=== PATIENT | female | born 1925 | race Caucasian/White ===

== ENCOUNTER 2016-06-27 14:40 | Inpatient (IN) | payer MEDICARE, MEDICAID ==
[~2016-06-27] VITALS: Ht 170.2 cm; Wt 75.1 kg
[2016-06-27] VITALS (9 sets, daily range): BP systolic 101–116; BP diastolic 37–91; PULSE 68–83; RESP 19–34; O2SAT 82–100
[~2016-06-27 14:40] MED LIST: ALLO100T PO; ASA325 PO; BISA5TAB12 PO; CLAR10T PO; DILT120T10 PO; DSS250 PO; FLONASE NOSTRIL; FUR80 PO; IPRA3AMP HHN; K20 PO; LEVO125T6 PO; OMEP20TA86 PO; PRE20 PO; SPIR25TA17 PO; SULF1TAB7 PO; VICODIN 5-3251 EACH PO; VIT1CAPS23 PO; ZOC10 PO; [UNRECOGNIZED DRUG - CODE] PO; [UNRECOGNIZED DRUG - CODE] PO
--- NOTE | 2016-06-27 15:21 | ED.REPORT ---
HPI-General Illness Date of Service Jun 27, 2016 ED Provider: Dawson Haines MD 89 year old female with a history of COPD, Hypothyroidism, and an increased O2 at [facility] due to saturation 79% RA baseline requiring 5L, new after recent flu A diagnosis, who presents to the ED via EMS from [facility] due to AMS and increased weakness. Reportedly the patient was able to speak at baseline 2 days ago. Today she is non-verbal, with no family in room for additional history. Nursing Notes Stated Complaint: ALTERED LOC Chief Complaint: FLU/Cold Symptoms Nursing Notes Reviewed: Yes Allergies: Coded Allergies: indomethacin (Verified Allergy, Unknown, 06/27/16) milk (Verified Allergy, Unknown, 06/27/16) Scheduled Acetaminophen (Acetaminophen) 325 Mg Capsule 650 MG PO TID Allopurinol (Allopurinol) 100 Mg Tablet 100 MG PO DAILY Alpha Lipoic Acid (Alpha Lipoic Acid) 300 Mg Capsule 600 MG PO DAILY Calcium Carbonate (Tums) 500 Mg Tab.chew 500 MG PO DAILY Cetirizine HCl (Zyrtec) 10 Mg Capsule 10 MG PO DAILY Cholecalciferol (Vitamin D3) (Vitamin D3) 2,000 Unit Tablet 2,000 UNIT PO DAILY Cranberry Fruit Concentrate (Cranberry) 450 Mg Capsule 900 MG PO DAILY Diltiazem ER (Cardizem CD) 120 Mg Cap.er.24h 120 MG PO DAILY Docusate Sodium (Docusate Sodium) 250 Mg Capsule 250 MG PO DAILY Fluticasone Propionate (Flonase Allergy Relief) 50 Mcg/Actuation [place].susp 1 SPRAY NS QPM Levothyroxine (Levothyroxine) 100 Mcg Tablet 100 MCG PO DAILY Multivitamin (Once Daily) 1 Each Tablet 1 EACH PO DAILY Oseltamivir Phosphate (Tamiflu) 75 Mg Capsule 75 MG PO BID x 8 doses Prednisone (PredniSONE) 5 Mg Tab 5 MG PO DAILY Sennosides (Senna) 8.6 Mg Tablet 17.2 MG PO DAILY Simvastatin (Simvastatin) 10 Mg Tablet 10 MG PO HS Scheduled PRN Acetaminophen (Acetaminophen) 325 Mg Capsule 650 MG PO q4 hours PRN PRN For Pain Bisacodyl (Dulcolax) 5 Mg Tablet.dr 5 MG PO BID PRN PRN For Constipation Guaifenesin/Codeine Phosphate (Guaifen-Codeine 100-10 mg/5 ml) 120 Ml Liquid 10 ML PO q6 hours PRN PRN For Cough Ipratropium/Albuterol Sulfate (Iprat-Albut 0.5-3(2.5) mg/3 mL Inhalant Soln) 3 Ml Ampul.neb 3 ML IH Q6 PRN PRN For Shortness of Breath General Time Seen by MD: 15:13 Chief Complaint Other (Decreased LOC) Hx Obtained From: Patient, EMS Unable to Obtain Hx: Mental status Arrived By: Ambulance Past Medical History Past Medical History Bladder dysfunction COPD Hypothyroidism Neuropathy weaknesss Had increased O2 at [facility] due to saturation 79% RA baseline requiring 5L, new after recent flu diagnosis. Reports: COPD Past Surgical History Sinus surgery Joints- unspecified. Smoking History Unknown if Ever Smoker Social History Other Social History: Lives in [facility] Review of Systems Unable to Obtain ROS Mental status Full Review of Systems Constitutional: Reports: Weakness - generalized Neurologic: Reports: Change LOC Physical Exam Vital Signs Vital Signs Date Time Temp Pulse Resp B/P Pulse Ox O2 Delivery O2 Flow Rate FiO2 06/27/16 15:59 35.9 82 34 108/46 95 Nasal Cannula 4 06/27/16 14:50 36.7 80 27 109/54 99 Nasal Cannula 5 Initial VS: Reviewed Head / Eyes: Atraumatic, Normocephalic ENT: Conjunctiva normal, No scleral icterus Extremities: Vascular intact, Neuro intact, No swelling, No tenderness Skin: Warm, Dry Respiratory/Chest: Coarse shallow breath sounds Moderately tachypneic Cardiovascular: Heart rate NL, Regular rhythm, Heart sounds NL, No gallop, No murmurs, No rubs, Cap refill not delayed, Peripheral circulation NL Abdomen: Soft, Non-tender, No distention Lower Extremity / Pelvis / MS: Neurologic intact, Vascular intact Amputated R third toe, good perfusion to toes. Sacral pressure ulcer shallow, approximately 1cm. Palm sized patch of erythema about the sacral region. Neurologic: No motor deficits Pt non-verbal. Interpretation & Diagnostics Lab Results Interpretation Result Diagram: 06/27/16 1520 06/27/16 1520 Test 06/27/16 15:20 06/27/16 15:51 White Blood Count 16.0th/mm3 (3.8-10.1) Red Blood Count 3.70mil/mm3 (3.90-5.20) Hemoglobin 12.6g/dL (12.0-15.6) Hematocrit 40.3% (35.0-46.0) Mean Corpuscular Volume 108.9fL (81-100) Mean Corpuscular Hemoglobin 34.1pg (27.0-35.0) Mean Corpuscular Hemoglobin Concent 31.3% (32.0-37.0) Red Cell Distribution Width 14.0% (12.3-15.4) Platelet Count 217bil/L (150-400) Neutrophils (%) (Auto) 68.0% (40-74) Lymphocytes (%) (Auto) 17.0% (14-46) Monocytes (%) (Auto) 13.9% (4-12) Eosinophils (%) (Auto) 0.1% (0-5) Basophils (%) (Auto) 0.4% (0-3) Sodium Level 144mEq/L (134-144) Potassium Level 4.2mEq/L (3.5-5.2) Chloride Level 102mEq/L (97-108) Carbon Dioxide Level 33mmol/L (18-29) Blood Urea Nitrogen 32mg/dL (8-27) Creatinine 0.76mg/dL (0.57-1.00) Estimat Glomerular Filtration Rate 103mL/min (>59) Glucose Level 141mg/dL (60-99) Lactic Acid Level 0.7mmol/L (0.4-2.0) Calcium Level 8.7mg/dL (8.5-10.1) Magnesium Level 1.8mg/dL (1.6-2.6) Total Bilirubin 0.2mg/dL (0.0-1.2) Aspartate Amino Transf (AST/SGOT) 23U/L (0-50) Alanine Aminotransferase (ALT/SGPT) 8U/L (0-32) Alkaline Phosphatase 55U/L (25-165) Troponin T 0.026ug/L (0.0-0.011) Total Protein 7.3g/dL (6.4-8.4) Albumin 3.7g/dL (3.4-5.0) Urine Color Yellow (YELLOW) Urine Appearance Slightly cloudy Urine pH 8.0 (5.0-8.0) Urine Specific [place] 1.025 (1.003-1.035) Urine Protein 100mg/dL (NEG,TRACE) Urine Glucose (UA) Negativemg/dL (NEGATIVE) Urine Ketones Negativemg/dL (NEGATIVE) Urine Occult Blood Moderate (NEGATIVE) Urine Nitrite Negative (NEGATIVE) Urine Bilirubin Negative (NEGATIVE) Urine Urobilinogen Normalmg/dL (NORMAL) Urine Leukocyte Esterase Large (NEGATIVE) Urine RBC 3-10/hpf (0-2) Urine WBC 11-50/hpf (0-5) Urine Epithelial Cells None/hpf (NONE-MOD) Urine Crystals None seen (NONE SEEN) Urine Bacteria Few/hpf (NONE-FEW) Urine Hyaline Casts None/lpf (NONE) Urine Granular Casts None seen (NONE SEEN) Urine Waxy Casts None seen (NONE SEEN) Urine Red Blood Cell Casts None seen (NONE SEEN) Urine White Blood Cell Casts None seen (NONE SEEN) Urine Mucus Present (None Seen) Urine Trichomonas None seen (NONE SEEN) Urine Yeast None (NONE SEEN) Urinalysis Comment None Urine Culture Reflexed Indicated General Lab Results Interp 1: Labs reviewed X-Ray Chest Interpretation Chest Xray Interpretation: IMPRESSION: Bibasilar opacities compatible with atelectasis versus pneumonia. Please correlate with clinical and laboratory data. Dictated by: Cynthia Han MD, PhD on 06/27/2016 at 16:44 View: Portable, 1 view Interpretation / Wet Read by: Interpret - Radiologist Re-Eval/Medical Decision Med Decision/Clinical Course 89 year old female with a history of COPD, Hypothyroidism, and an increased O2 at [facility] due to saturation 79% RA baseline requiring 5L, new after recent flu A diagnosis, who presents to the ED via EMS from [facility] due to AMS and increased weakness. Reportedly the patient was able to speak at baseline 2 days ago. Today she is non-verbal, with no family in room for additional history. Upon arrival the patient is hypotensive with a blood pressure in the 70s over the 40s, she is to Neck with a respiratory rate of 33. She generally unwell. She is unable to provide any history. She has a POLST form that specifies DNR/ DNI with limited additional interventions. There is a handwritten note on the forearm that the patient may be considered by her primary care physician or other "trusted physician". It is unclear what is meant by "trusted physician". Given the patient's profound respiratory distress and POLST form stating DO NOT INTUBATE opted to initiate BiPAP. This was tolerated well. Left for studies were notable as below: leukocytosis 16 hct 40.3 BUN 32 creatinine 0.76 lactate 0.7 troponin 0.026 no significant electrolyte abnormalities Cath UA large leuk esterase, bacteria present, urine sent for culture Arterial ABG: PH 7.062 CO2 114 Bicarb 30 Minimally compensation respiratory acidosis The patient was aggressively fluid resuscitated. Given her respiratory acidosis she was placed on BiPAP. The patient's blood pressure improved with a 30 mL/kg fluid bolus and she maintained a map greater than 65. At this time she has 2 potential infectious sources both her urine as well as likely bilateral pneumonia. Given her hypoxia and tachypnea I opted to treat for hospital-acquired pneumonia with IV vancomycin and Zosyn. Note the patient had an elevated troponin however fact that this may be related to demand ischemia in the setting of her severe illness/sepsis. Regardless, at this time I do not feel that she is a immediate candidate for cardiac catheterization given her instability and more pressing issues. He will require her troponin to be trended. At this time EKG does not demonstrate STEMI. The patient was discussed with the medical hospitalist and transferred to the intensive care unit for further management. I made attempts to contact the patient's physician as well as family regarding further insight into situations in which she would want to be intubated. I have not at this time been able to make contact. Time of Eval: 17:00 Re-Evaluation/Progress Note: Pt being admitted. Resting in bed. Consultation : Referral / Consult Name: Patrick Inman MD Consulted With: Hospitalist Call Returned at: 17:17 Cargo And Container Inspector: Will see patient, Agrees with eval, Agrees with plan, Accepts admit Counseled Regarding: Diagnosis, Lab results, Need for admission Discharge & Departure Primary Impression: Sepsis Sepsis type: sepsis due to unspecified organism Qualified Code: A41.9 - Sepsis, unspecified organism Additional Impressions: Altered mental status Altered mental status type: unspecified Qualified Code: R41.82 - Altered mental status, unspecified Hypotension Hypotension type: unspecified hypotension type Qualified Code: I95.9 - Hypotension, unspecified UTI (urinary tract infection) Urinary tract infection type: site unspecified Hematuria presence: without hematuria Qualified Code: N39.0 - Urinary tract infection, site not specified Pneumonia Pneumonia type: due to unspecified organism Laterality: bilateral Lung location: unspecified part of lung Qualified Code: J18.9 - Pneumonia, unspecified organism Tachypnea Respiratory acidosis Acute respiratory failure Respiratory failure complication: hypoxia Qualified Code: J96.01 - Acute respiratory failure with hypoxia Leukocytosis Leukocytosis type: unspecified Qualified Code: D72.829 - Elevated white blood cell count, unspecified Dehydration Elevated troponin Disposition: ADMITTED TO HOSPITAL Discharge Condition All VS Reviewed: Yes Referrals: Latisha Xavier (PCP) Crit Care Except Billable Proc Time Spent: 105-134 minutes Services Performed: Patient management by me, Time spent at bedside, Reviewing test results, Reviewing imaging, Discussing patient care, Documentation in record, Time with fam/surrogate Scribe Attestation Portions of this note were transcribed by Danae Montalvo. I, (Dr. Haines) personally performed the history, physical exam and medical decision-making; I reviewed and confirmed the accuracy of the information in the transcribed note. Signed by: Danae Montalvo. 06/27/2016, 5291 copies to: Latisha Xavier Beck O MD Jun 27, 2016 15:21 Danae Montalvo Jun 27, 2016 16:00
[2016-06-27 15:33] LABS: BASOPHILS % (AUTO) 0.4 % (0-3); EOSINOPHILS % (AUTO) 0.1 % (0-5); MONOCYTES % (AUTO) 13.9 % (4-12); Mean Corpuscular Hemoglobin 34.1 pg (27.0-35.0); Mean Corpuscular Volume 108.9 fL (81-100); Platelet Count 217 bil/L (150-400)
[2016-06-27 15:56] LABS: TROPONIN T 0.026 ug/L (0.0-0.011)
[2016-06-27 16:07] LABS: Magnesium 1.8 mg/dL (1.6-2.6)
[2016-06-27] MEDS: 0.9% Sodium Chloride 1,000 ML IV SCH ×2 (16:13→16:58)
[2016-06-27 16:44] LABS: APPEARANCE,URINE SLIGHTLY CLOUDY (CLEAR,HAZY); COLOR,URINE YELLOW (YELLOW)
[2016-06-27 16:45] LABS: OCCULT BLOOD,URINE MODERATE (NEGATIVE); UROBILINOGEN,URINE NORMAL (NORMAL)
--- NOTE | 2016-06-27 16:46 | DRSVH ---
PROCEDURE: X-RAY CHEST ONE VIEW, PORTABLE ([id number]) INDICATIONS: DECREASED LOC TECHNIQUE: One view of the chest was acquired. COMPARISON: [facility], , CHEST 1VW (PORTABLE), 07/05/2013, 9:15. FINDINGS: Surgical changes and devices: None. Lungs and pleura: Trace bilateral pleural fluid collections. Increased opacification of the lung base s bilaterally compatible with atelectasis versus pneumonia. Mediastinum: Mediastinal contours appear normal. Heart size is normal. Bones and chest wall: No suspicious bony lesions. Overlying soft tissues appear unremarkable. IMPRESSION: Bibasilar opacities compatible with atelectasis versus pneumonia. Please correlate with c linical and laboratory data. Dictated by: Cynthia Han MD, PhD on 06/27/2016 at 16:44 Approved by: Cynthia Han MD, PhD on 06/27/2016 at 16:44
[2016-06-27] MEDS ORDERED: Vancomycin Dose per Pharmacist XX ONE (17:00)
[2016-06-27] MEDS ORDERED: Piperacillin-Tazo 3.375 Gm Inj 3.375 GM in Dextrose 5% Minibag Plus 50 ML IV ONE (17:00)
--- NOTE | 2016-06-27 17:14 | ABG ---
DateTimeAnalyzed 17:10:00 -_ pH ____7.062 - 7.350 7.450 pCO2 114 -mmHg 35.0 45.0 pO2 126 -mmHg 69.0 116 HCO3- ___30.9__ -mmol/L 22.0 26.0 ABE ___-2.1__ -mmol/L -2.0 2.0 tHb ___11.0__ -g/dL O2Hb ___96.0__ -% COHb ____0.6__ -% MetHb ____0.9__ -% sO2 ___97.5__ -% FIO2 ___30.0__ -% Drawn By MT - Date/Time Notified____ 17:14:00 -_ Notified By MT - Notified Whom [place] - B 756 -mmHg tO2 ___15.0__ -Vol% Donnie test _Positive -
--- NOTE | 2016-06-27 18:00 | NUR ---
Transfer Pt arrived in CCU room #2013 at 1732 from ED. Pt opens eyes but does not follow command. Full assist. ABG's completed. Bipap placed by RT. Several skin tears and bruise. Open sores on coccyx. Placed on pressure ulcer protocol. Placed a mepilex on coccyx. Mitchell draining minimal urine. x2 peripheral IV's. 2L NS completed and LR started at 100ml/hr. Tele SR 80 and LK=354/39
[2016-06-27] MEDS: Lactated Ringer's 1,000 ML IV SCH (18:39)
[2016-06-27] MEDS ORDERED: DILT120C83 PO (18:47)
[2016-06-27] MEDS ORDERED: CALC500T9 PO (18:47)
[2016-06-27] MEDS ORDERED: PRD5T PO (18:47)
[2016-06-27] MEDS ORDERED: THIO300C PO (18:47)
[2016-06-27] MEDS ORDERED: GUAI120L30 PO (18:47)
[2016-06-27] MEDS ORDERED: TAM75UDCAP PO (18:47)
[2016-06-27] MEDS ORDERED: CETI10CA PO (18:47)
[2016-06-27] MEDS ORDERED: SIMV10TA4 PO (18:47)
[2016-06-27] MEDS ORDERED: CHOL200025 PO (18:47)
[2016-06-27] MEDS ORDERED: CRAN450C PO (18:47)
[2016-06-27] MEDS ORDERED: SENN-133 PO (18:47)
[2016-06-27] MEDS ORDERED: DOCU250C2 PO (18:47)
[2016-06-27] MEDS ORDERED: FLUT9.9S NS (18:47)
[2016-06-27] MEDS ORDERED: ZYL100 PO (18:47)
[2016-06-27] MEDS ORDERED: MULT-666 PO (18:47)
[2016-06-27] MEDS ORDERED: ACET325C PO ×2 (18:47)
[2016-06-27] MEDS ORDERED: LEVO100T6 PO (18:47)
[2016-06-27] MEDS ORDERED: BISA-67 PO (18:48)
[2016-06-27] MEDS ORDERED: IPRA3AMP IH (18:48)
--- NOTE | 2016-06-27 19:54 | ABG ---
DateTimeAnalyzed 19:49:00 -_ pH ____7.202 - 7.350 7.450 pCO2 ___75.8__ -mmHg 35.0 45.0 pO2 106 -mmHg 69.0 116 HCO3- ___28.7__ -mmol/L 22.0 26.0 ABE ___-0.5__ -mmol/L -2.0 2.0 tHb ___11.2__ -g/dL O2Hb ___96.0__ -% COHb ____0.7__ -% MetHb ____0.9__ -% sO2 ___97.6__ -% FIO2 ___70.0__ -% CPAP ___16.0__ -cmH2O PEEP ____5.0__ -cmH2O Set_RR ___18.0__ -b/min Drawn By MM - Date/Time Notified____ 19:54:00 -_ Oxygen Device 1 ____BIPAP - Notified By MM - Notified Whom ___DR Henny - B 756 -mmHg tO2 ___15.2__ -Vol% Donnie test N/A -
--- NOTE | 2016-06-27 20:08 | PCM.HPMED ---
Subjective Date of Service Jun 27, 2016 Primary Provider: Admitting Physician: Patrick Inman MD Primary Care Physician: Latisha Xavier Attending Physician: Patrick Inman MD Chief Complaint: Hypoxia at [place] HISTORY was OBTAINED FROM PATIENT / MEDITECH NOTES History of present illness 89-year-old female, dysphagia/COPD history, diagnosed with influenza last week associated w/ 79% on RA, tolerating Tamiflu, progressive altered mental status x 2 days, poorly responsive to staff, w/ ongoing O2 need. In the ER BP 70/40, respiratory rate 25, 5L O2 . UA positive for leukocyte esterase but negative for bacteria/negative yeast. Vancomycin and Zosyn started. BiPAP started. Review of Systems FAMILY HX social - unable to answer w/ fatigue/BIPAP on. medications Acetaminophen (Acetaminophen) 325 Mg Capsule 650 MG PO TID Allopurinol (Allopurinol) 100 Mg Tablet 100 MG PO DAILY Alpha Lipoic Acid (Alpha Lipoic Acid) 300 Mg Capsule 600 MG PO DAILY Calcium Carbonate (Tums) 500 Mg Tab.chew 500 MG PO DAILY Cetirizine HCl (Zyrtec) 10 Mg Capsule 10 MG PO DAILY Cholecalciferol (Vitamin D3) (Vitamin D3) 2,000 Unit Tablet 2,000 UNIT PO DAILY Cranberry Fruit Concentrate (Cranberry) 450 Mg Capsule 900 MG PO DAILY Diltiazem ER (Cardizem CD) 120 Mg Cap.er.24h 120 MG PO DAILY Docusate Sodium (Docusate Sodium) 250 Mg Capsule 250 MG PO DAILY Fluticasone Propionate (Flonase Allergy Relief) 50 Mcg/Actuation [place].susp 1 SPRAY NS QPM Levothyroxine (Levothyroxine) 100 Mcg Tablet 100 MCG PO DAILY Multivitamin (Once Daily) 1 Each Tablet 1 EACH PO DAILY Oseltamivir Phosphate (Tamiflu) 75 Mg Capsule 75 MG PO BID x 8 doses Prednisone (PredniSONE) 5 Mg Tab 5 MG PO DAILY Sennosides (Senna) 8.6 Mg Tablet 17.2 MG PO DAILY Simvastatin (Simvastatin) 10 Mg Tablet 10 MG PO HS Scheduled PRN Acetaminophen (Acetaminophen) 325 Mg Capsule 650 MG PO q4 hours PRN PRN For Pain Bisacodyl (Dulcolax) 5 Mg Tablet.dr 5 MG PO BID PRN PRN For Constipation Guaifenesin/Codeine Phosphate (Guaifen-Codeine 100-10 mg/5 ml) 120 Ml Liquid 10 ML PO q6 hours PRN PRN For Cough Ipratropium/Albuterol Sulfate (Iprat-Albut 0.5-3(2.5) mg/3 mL Inhalant Soln) 3 Ml Ampul.neb 3 ML IH Q6 PRN PRN For Shortness of Breath Past Medical History urinary incontinence tachycardia COPD Hypothyroidism Neuropathy weaknesss Past Surgical History Sinus surgery Joints- unspecified. Allergies Coded Allergies: indomethacin (Verified Allergy, Unknown, 06/27/16) milk (Verified Allergy, Unknown, 06/27/16) PMH Social History Hx Alcohol Use: No Hx Substance Use: No Hx Tobacco Use: No Smoking Status: Unknown if Ever Smoker Exam Vital Signs Vital Sign - Last Date Time Temp Pulse Resp B/P Pulse Ox O2 Delivery O2 Flow Rate FiO2 06/27/16 19:41 90 19 113/91 98 70 06/27/16 17:46 35.6 Nasal Cannula 4.00 Lab and Diagnostics Labs Exam on admission 16/, PIP 17 NAD EASILY AWAKENS, FOLLOWS COMMANDS, ONE-WORD ANSWERS WHILE ON THE BIPAP NC/AT no icterus no injected eyes EOMI PERRL /no pharyngeal lesions/ no oral lesions / hearing intact Supple neck Bilateral coarse breath sounds equal chest rise / no accessory muscle use / speaks in full sentences / no rrw RRR S1 S2 / no mrg / 2+ radial pulses Soft nt nd + BS no hepatosplenomegaly No edema no cyanosis no ecchymosis of lower extremities No rash / no jaundice Contractures of every limb, otherwise able to move right fingers more than left fingers Mitchell clear yellow IVF 100cc/hr UA positive for leukocyte esterase, negative yeast negative nitrite negative bacteria Chest x-ray unremarkable Result Diagram: 06/27/16 1520 06/27/16 1520 Assessment & Plan Active issues and reason for admission 89-year-old female with altered mental status progressive with hypotension, due to respiratory distress from influenza/bilateral basilar pneumonia, failing outpatient tamiflu and treating as HCAP recent new hypoxia/influenza/bilateral basilar pneumonia -- Tamiflu/DuoNeb -- monitor/BiPAP Elevated troponin mild -- serial trop concurrent UTI-already treating for HCAP --pending UCx pressure sores --pending wound team elevated blood gluc, likely due to COPD's prednisone --A1c SSI Chronic issues known prior to admission, present on admission contractures Dysphagia COPD Hypothyroidism Neuropathy tachycardia -- Resume statin, prednisone, cetirizine, dilt synthoid Diet advance as tolerated DVT prophylaxis lovenox heparin scd ambulate Code by POLST indicates DO NOT INTUBATE with limited intervention but on comment section indicates intubation would be allowed as long as primary care physician or "trusted physician" determines that it would not be futile Disposition inpatient status Assessment and plan were discussed with patient Patrick Inman MD Jun 27, 2016 20:08 Code by POLST indicates DO NOT INTUBATE with limited intervention but on common section indicates intubation would be allowed as long as primary care or trusted physician determines that it would not be futile Disposition inpatient status Assessment and plan were discussed with patient Patrick Inman MD Jun 27, 2016 20:08
[2016-06-27] MEDS: Albuterol-Ipratropium 3 mL Inhalation Solution NEB SCH (23:38)
[2016-06-28] VITALS (16 sets, daily range): BP systolic 104–133; BP diastolic 40–62; PULSE 74–101; RESP 21–28; O2SAT 93–100
[2016-06-28 01:30] LABS: Mean Corpuscular Hemoglobin 33.6 pg (27.0-35.0); Mean Corpuscular Volume 110.3 fL (81-100)
[2016-06-28 02:19] LABS: TROPONIN T 0.038 ug/L (0.0-0.011)
[2016-06-28] MEDS ORDERED: KCl 40 mEq/500 mL D5W(K 3 - 3.7 & Creat < 2) IV ONE (02:45)
[2016-06-28] MEDS: Lactated Ringer's 1,000 ML IV SCH ×3 (03:32→22:50)
[2016-06-28 03:54] LABS: Bilirubin, Direct 0.2 mg/dL (0.0-0.3); Magnesium 1.5 mg/dL (1.6-2.6); Phosphorus 3.8 mg/dL (2.5-4.9)
[2016-06-28] MEDS ORDERED: Mag Sulf 4 Gm/100 mL IV Premix (Mag < 1.6 & Creat < 2) IV ONE (04:35)
--- NOTE | 2016-06-28 06:28 | NUR ---
care from 0400 -0700, took over pt care at 0400, bipap at .50 fio2, 25/10, hob up, resp rate=high teens to low 20's, ls- scattered course rhonchi, pt coughing up thick yellow sputum, sx per daniel, rt aware of need for sputum spec, strong cough, sats upper 90's, pt alert, answers with one word answers, improved per report from earlier in night, turn q2hrs, scd's on, mepilex dressing on buttocks, wound care order placed, fragile bruised skin to extremities, bora uop per f/c, no bm, no n/v, npo tele- sr, hr 80's, bp low normal, pt asleep at 0600, paged with troponin results, no new orders, mg/k replacements given, repeat labs ordered for 0800, see assessment charting, report today shift rn at 0700, plan:resp support, droplet precautions taken,
[2016-06-28] MEDS: Albuterol-Ipratropium 3 mL Inhalation Solution NEB SCH ×4 (07:36→20:36)
--- NOTE | 2016-06-28 07:55 | ABG ---
DateTimeAnalyzed 07:50:00 -_ pH ____7.287 - 7.350 7.450 pCO2 ___62.1__ -mmHg 35.0 45.0 pO2 119 -mmHg 69.0 116 HCO3- ___28.7__ -mmol/L 22.0 26.0 ABE ____1.6__ -mmol/L -2.0 2.0 tHb ___10.3__ -g/dL O2Hb ___96.5__ -% COHb ____0.8__ -% MetHb ____1.2__ -% sO2 ___98.5__ -% FIO2 ___50.0__ -% Pressure_Support ___16.0__ -cmH2O CPAP ____5.0__ -cmH2O Set_RR ___18.0__ -b/min Drawn By gj - Date/Time Notified____ 07:55:00 -_ Spontaneous_RR ___26.0__ -b/min Oxygen Device 1 ____BIPAP - Notified By gj - Notified Whom [place] - B 749 -mmHg tO2 ___14.2__ -Vol% Donnie test _Positive -
[2016-06-28 08:02] LABS: BASOPHILS % (AUTO) 0.2 % (0-3); EOSINOPHILS % (AUTO) 0.2 % (0-5); MONOCYTES % (AUTO) 13.4 % (4-12); Mean Corpuscular Hemoglobin 34.2 pg (27.0-35.0); Mean Corpuscular Volume 109.9 fL (81-100); NEUTROPHILS % (AUTO) 68.6 % (40-74); Platelet Count 168 bil/L (150-400)
[2016-06-28] MEDS ORDERED: Azithromycin Inj 500 MG in Dextrose 5% w/Vial Mate 250 ML IV ONE (08:15)
[2016-06-28 08:30] LABS: Magnesium 2.8 mg/dL (1.6-2.6)
[2016-06-28] MEDS ORDERED: Vancomycin Dose per Pharmacist XX SCH (08:30)
[2016-06-28] MEDS: Diltiazem CD 120 mg ER24 Capsule PO SCH (08:30)
[2016-06-28] MEDS: predniSONE 5 mg Tablet PO SCH (08:30)
[2016-06-28] MEDS ORDERED: Cefepime Inj 2 GM in IV Premix 1 EACH IV SCH (08:30)
[2016-06-28] MEDS ORDERED: Fluticasone 0.05% 15 Spray/2 Gm 16 Gm Nasal Spray NASAL SCH (08:30)
[2016-06-28 08:56] LABS: Phosphorus 2.5 mg/dL (2.5-4.9)
[2016-06-28 10:54] LABS: APPEARANCE,URINE SLIGHTLY CLOUDY (CLEAR,HAZY); COLOR,URINE YELLOW (YELLOW); OCCULT BLOOD,URINE LARGE (NEGATIVE); PH,URINE 6.5 (5.0-8.0); UROBILINOGEN,URINE NORMAL (NORMAL)
--- NOTE | 2016-06-28 12:21 | PCM.CHPMED ---
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 No documentation of pneumococcal vaccine. UTI Immobility syndrome with significant deconditioning (requires a lift for transfers) Hypothyroidism with laboratory evidence of over treatment Chronic kidney disease with good renal function currently Sofía is an 89-year-old female resident of a local [place] [facility] facility ( [facility]) with past medical history of recently diagnosed influenza A (by PCR last week, on Tamiflu), documented COPD, and neuromuscular disease with associated neuropathy and myopathy who presented to the ER via [place] from the [place] [facility] with reported complaint of altered mentation ( specifically decreased interactiveness with staff), and increasing O2 needs (79 % on room air, 96% on 5 L by nasal cannula at facility). According to documentation from the nursing facility in the paper chart there were complaints of increased cough (for which she received guaifenesin when necessary), no documentation indicating improvement or worsening once starting Tamiflu. According to outpatient documentation she was afebrile, and was not demonstrating any tachycardia, tachypnea, or hypotension. I visited with her today while she is currently on NPPV. She is a poor historian, and I am not able to get much information out of her. She does report some discomfort, but is not able to localize. She denies having a Mitchell catheter at the [place] [facility]. She reports that she is not breathing well, but is not able to specify. I am not able to get any other meaningful communication out of her. Comprehensive ROS otherwise not obtainable. PMH Past Medical History COPD (currently on when necessary DuoNeb, and 5 mg daily prednisone) * PFTs from 06/01/12 show: FVC 1.37 L (47% predicted), FEV1 0.94 L (44% predicted), FEV1/FVC 69% (predicted 73%), TLC 7.42 L (136% predicted), RV 5.88 L (249% predicted), DLCO 54% predicted (corrected 55% predicted, adjusted for alveolar volume 92% predicted). 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 avina of neurology with regular Botox injections for left upper extremity spasticity. * Chest x-rays going back several years demonstrate persistent right hemidiaphragm elevation. Hypertension, essential Chronic kidney disease, stage IV. Has been following with Dr. Palomo of nephrology. Baseline creatinines have been 0.8. CAD (NSTEMI 07/2012) * Cardiac cath in 07/30/12: Showed 60% mid LAD lesion. Medical management was recommended. * Most recent echo 07/04/13: Normal LV size, wall thickness, wall motion, and systolic function with an EF of 60-65%. Summary documentation of stage I diastolic dysfunction. No significant valvular abnormalities noted. Hypothyroidism Lactose intolerance Postmastectomy lymphedema syndrome (I do not see anything indicated in her history of a documented mastectomy) Unspecified urinary incontinence Mechanical ground-level fall in 07/2012-distal clavicle fracture to the left side Hypercholesterolemia Gout History of skin cancer (unspecified) History of breast cancer, status post lumpectomy and radiation therapy History of hip fracture Bedside Blood Glucose: 101 Surgical History Tonsils and adenoids Appendectomy Bladder suspension Lumpectomy Cataract surgery Sinus surgery Hysterectomy with oophorectomy Bilateral total knee replacements Right shoulder surgery Right third toe amputation in 2001 Home Medications Sofía Caal [id number] 1925 03/01/2016 04:40 PM Page: 06/1608/04/2015 allopurinol 100 mg tablet take 1 tablet (100MG) by ORAL route every day 08/04/2015 alpha lipoic acid 300 mg capsule Take 1 capsule by mouth for 1 week then increase to 2 capsules daily thereafter. 08/04/2015 aspirin 325 mg tablet,delayed release take 1 tablet by oral route every day 08/04/2015 bisacodyl 5 mg tablet,delayed release take 1 Tablet by ORAL route 2 times every day as needed for constipation 08/04/2015 calcium carbonate 200 mg calcium (500 mg) chewable tablet take 1 Tablet by oral route every day for calcium supplement 08/04/2015 codeine 10 mg-guaifenesin 100 mg/5 mL oral liquid take 10 milliliter by oral route every 6 hours as needed 08/04/2015 cranberry extract 425 mg capsule take 2 tablet by oral route every day 08/04/2015 diltiazem ER 120 mg capsule,extended release take 1 capsule (120MG) by oral route every day 08/04/2015 docusate sodium 250 mg capsule take 1 capsule by oral route every day as needed 08/04/2015 fluticasone 50 mcg/actuation nasal spray,suspension spray 2 spray by intranasal route every day in each nostril 08/04/2015 ipratropium-albuterol 0.5 mg-3 mg(2.5 mg base)/3 mL nebulization soln inhale 3 milliliter by nebulization route every 6 hours as needed for shortness of breath 08/04/2015 Levoxyl 100 mcg tablet take 1 tablet by oral route every day 08/04/2015 Ocuvite Lutein and Zeaxanthin 60 mg-30 unit-15 mg-2 mg-6 mg capsule 1 tab po daily 08/04/2015 prednisone 5 mg tablet take 1 tablet by oral route every day 08/04/2015 Resource 2.0 oral liquid take 90 Milliliter by Oral route 2 times every day 08/04/2015 Senna-Gen 8.6 mg tablet take 2 tablet by oral route every day 08/04/2015 simvastatin 10 mg tablet take 1 tablet by oral route every day in the evening 08/04/2015 Tylenol 325 mg tablet take 2 tablet by oral route 3 times every day 08/04/2015 Zyrtec 10 mg tablet take 1 tablet by oral route every day Tamiflu as well Allergies: Coded Allergies: indomethacin (Verified Allergy, Unknown, 06/27/16) milk (Verified Allergy, Unknown, 06/27/16) Family History Family History Mother of Alzheimer's disease at age 93. Father of an NH at age 89. 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 She is , and has one grown child. Exam Vital Signs Vital Sign - Last Date Time Temp Pulse Resp B/P Pulse Ox O2 Delivery O2 Flow Rate FiO2 06/28/16 10:00 87 06/28/16 08:30 37.2 25 104/40 99 BiPAP 50 06/27/16 17:46 4.00 Intake and Output 06/27/16 06/27/16 06/28/16 Cumulative From/Thru 15:00 23:00 07:00 06/27/16 16:14 - 06/28/16 06:16 Intake Total 2000 ml 2087 ml 4087 ml Output Total 20 ml 450 ml 470 ml Balance 1980 ml 1637 ml 3617 ml Intake Oral 0 ml 0 ml IV Total 2000 ml 2087 ml 4087 ml Output Urine Total 20 ml 450 ml 470 ml # Bowel Movements 0 0 Additional Information: Gen.: Elderly female appropriate for stated age lying in hospital bed with NPPV mask in place. Does not appear to be in acute distress. Minimally interactive. HEENT: pupils are equal and reactive to light bilaterally, but EOM difficult to evaluate given lack of cooperation, mucous membranes are dry, poor dentition. Chest: Relatively clear with scattered rales. Cardiovascular: Regular rate and rhythm with normal S1 and S2. I do not appreciate any murmurs. Radial pulses are 2+ bilaterally, posterior tibial pulses are 1+ bilaterally. 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 Neuro: Opens eyes to voice, and is able to monitor some responses. However, largely uncommunicative. Wiggles toes bilaterally on command, and lightly squeezes hand on right on command. No hand squeeze on the left consistent with her history of left upper extremity spasticity/neurologic impairment. Lines: Peripheral, Mitchell catheter [facility] 68.6% neutrophils, MCV is 109.9 (this is chronic). Pro-calcitonin 0.11. TSH 0.355. Troponin 0.026, 0.038, 0.022. Calcium is low at 7.7, but corrects to approximately 8.5 (albumin last check was 2.9). Magnesium low this morning at 1.5 (now 2.8 status post replacement). Phosphorus 2.5. Lactic acid is been negative 2. LFTs are normal. Initial UA showed urine protein (100), moderate occult blood, large leukocyte esterase, WBC 11-50, few bacteria. Urine culture based on this sample was not useful and consistent with bacterial contamination. Repeat UA shows trace urine protein, large occult blood, positive nitrite, large leukocyte esterase, >50 WBC, and moderate bacteria. Repeat urine culture pending at this time. Micro- Blood culture drawn 06/27/1714:30 is negative to date. Repeat urine culture pending. MRSA screen by nasal swab is pending Legionella urine antigen negative, Streptococcus pneumoniae urine antigen negative Historical micro- Proteus mirabilis in urine culture 07/03/13 (sensitive: Cefepime, ceftriaxone, cefuroxime; resistant: ampicillin, cefazolin, ciprofloxacin, gentamicin, nitrofurantoin, penicillin, tetracycline, Bactrim; indeterminate: Levofloxacin, tobramycin) MRSA and upper respiratory tract swab culture 07/03/13 (resistant: Erythromycin, oxacillin. Otherwise sensitive). Result Diagram: 06/28/16 0750 06/28/16 0750 X-Rays, CTs and MRIs Chest x-ray this hospitalization demonstrates persistent known right hemidiaphragm elevation with some possible atelectasis in the base. There is also what appears to be a retrocardiac opacity on the left base. Additional Diagnostics: ABG at time of admission, on oxygen mask PH 7.06, PCO2 114, PO2 126 with a sat of 98%, bicarbonate 31 ABG 2 hours later on NPPV (16/5, 0.7) PH 7.2, PCO2 76, PO2 106 with a sat of 98%, bicarbonate 29 Repeat ABG this a.m. on NPPV (16/5, 0.5) PH 7.29, PCO2 62, PO2 119 with a sat of 98%, bicarbonate 28 Assessment & Plan Assessment 1. Acute (possibly on chronic) hypercapnic, hypoxic respiratory failure requiring NPPV-slowly improving per ABGs (we have decreased her FiO2 from 0.5 to 0.4 this morning). Will recheck ABG this afternoon to assess for continued improvement. Please note that her POLST specifies: No compressions, the leaves open the option for cardioversion and intubation if deemed necessary by PCP or "trusted DrDallas," and if recovery is expected to be full. With this in mind, would certainly hesitate to intubate this 89-year-old chronically ill female. If we do not see any improvement on the ABG and her mentation this afternoon will make family contacts to discuss her wishes proceeding forward. 2. Altered mental status-likely secondary to her underlying infections and hypercapnia. However, we must entertain the possibility of alternative intracranial abnormality (such as stroke) should his altered mentation persist despite improvement of other factors. We will discuss consideration for noncontrast head CT if deemed appropriate with primary team. 3. Influenza A on Tamiflu (outpatient PCR positive for influenza A, negative for H1 N1, negative for B)-continue Tamiflu. 4. 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 There is a greater clinical suspicion that her respiratory failure is secondary to her underlying chronic neuromuscular disease with neuropathy and myopathy. This is demonstrated by her persistent/chronic right hemidiaphragm elevation, and overall deconditioning (immobility syndrome). There is hope that she will improve with further NPPV, and we will proceed with that in mind. Recommend continuing her daily prednisone of 5 mg (or IV equivalent given her nothing by mouth status). Recommend continuing when necessary duo nebs. 5. Pulmonary infiltrate on chest x-ray concerning for pneumonia (question for secondary bacterial infection following flu)-she did get her flu shot this year. No documentation of pneumococcal vaccine.-Most common cause of post-flu pneumonia is staph aureus. Other laboratory and micro-workup at this time is been negative, or pending. Pro-calcitonin is unremarkable, and we will repeat tomorrow a.m. At this time there is certainly consideration for initiating an empiric antibiotic regimen and this elderly female based on pulmonary infiltrate and her acute presentation. We discussed with the primary team the possibility of vancomycin (given her history of MRSA finding and an upper respiratory culture) and cefepime (which would also cover her UTI with history of somewhat resistant Proteus and Escherichia coli). We will continue to follow chest imaging and laboratory evaluations. 6. UTI-to be treated per primary team. 7. Hypothyroidism with laboratory evidence of over treatment-to be managed per primary team 8. Chronic kidney disease with good renal function currently-to be managed per primary team Recommendations: -We will check ABG this afternoon -Continue NPPV for now with reassessment this afternoon -Empiric antibiotics as discussed with primary team -Continue Tamiflu -Continue prednisone 5 mg daily (or in either equivalent given nothing by mouth) -Continue duo nebs -Consideration for discussing with family/healthcare power of securities attorney her current POLST -Consideration for noncontrast brain CT if we do not see marked improvement in mentation DVT prophylaxis: Pneumatic compression leggings GI prophylaxis: None currently Patient is limited interventions: No compressions, consider defibrillation and/ or intubation per specifications on her POLST. Okay with NPPV IV medications and fluids. The patient was seen and examined together with Dr. Davies on 06/28/16 and I agree with the history, exam and plan as outlined in the note above. Time spent: 45 minutes Problems: King Ferris DO Jun 28, 2016 12:21 Kervin Ortega MD Jun 29, 2016 07:06
--- NOTE | 2016-06-28 15:33 | ABG ---
DateTimeAnalyzed 15:28:00 -_ pH ____7.380 - 7.350 7.450 pCO2 ___48.3__ -mmHg 35.0 45.0 pO2 ___80.7__ -mmHg 69.0 116 HCO3- ___27.9__ -mmol/L 22.0 26.0 ABE ____2.8__ -mmol/L -2.0 2.0 tHb ___10.0__ -g/dL O2Hb ___94.3__ -% COHb ____1.1__ -% MetHb ____1.2__ -% sO2 ___96.5__ -% FIO2 ___40.0__ -% Pressure_Support ___16.0__ -cmH2O CPAP ____5.0__ -cmH2O Set_RR ___18.0__ -b/min Drawn By gj - Date/Time Notified____ 15:33:00 -_ Spontaneous_RR ___26.0__ -b/min Oxygen Device 1 ____BIPAP - Notified By gj - Notified Whom DE LA HOUSSAYE - B 745 -mmHg tO2 ___13.4__ -Vol% Donnie test _Positive -
--- NOTE | 2016-06-28 16:02 | NUR ---
Evaluation completed. Rec: Strict NPO. Spoke with RN. EXTERMINATOR TERMITE to follow Please go to "Notes" then click on "Assessments and Notes" (bottom left corner of screen). Then select appropriate discipline tab on top of screen.
[2016-06-28] MEDS ORDERED: [UNRECOGNIZED DRUG - MIXTURE] IV ONE (16:05)
[2016-06-28] MEDS ORDERED: Hydrocortisone 50 mg/mL 2 mL Inj IVPUSH ONE (16:30)
--- NOTE | 2016-06-28 16:47 | NUR ---
Wound Care Wound evaluation received, pt seen at bedside with nursing. 89-year-old female resident of [facility], dysphagia/COPD history, diagnosed with influenza last week associated w/ 79% on RA, tolerating Tamiflu, progressive altered mental status x 2 days, poorly responsive to staff, w/ ongoing O2 need. Currently intubated and on a CCU bed. Skin inspection reveals 2 stage 2 PU's at her left and right buttocks both (POA). Right is 2 cm x 2 cm x0.1 cm Left is 1.1 cm x 1 cm x 0.1 cm. The sacrum and buttocks are red but blanchable. Wounds were cleaned and a mepilex sacral dressing was placed. Pt placed in left sidelying. No other pressure issues noted at skin. Frequent positioning, floating heels and sacral dressing change by nursing daily or as needed.
--- NOTE | 2016-06-28 17:38 | PCM.PNMED ---
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 Admitted for influenza A, acute hypercapnic and hypoxemic respiratory failure, possible pneumonia, and UTI. Hospital day 2. Overnight: Patient was admitted overnight, received 1L fluid bolus with appropriate rise in MAP, antibiotics initiated, and she was placed on BiPAP. Patient was minimal responsive. Today: Patient has been switched from BiPAP to oxymask at 4L this afternoon. She is slightly more responsive but continues to struggle to provide appropriate answers to questions. Family was contacted Prince (Son) and Laney ( [id number]) who are the patients medical decision makers. resides at [facility] with and currently has influenza A and is confused and unable to make decisions. Patient's code status was discussed and Prince clearly stated that he wishes to proceed with intubation if needed but DO NOT RESUSCITATE. Review of systems unobtainable due to mental status. Exam Vital Signs Vital Sign - Last Date Time Temp Pulse Resp B/P Pulse Ox O2 Delivery O2 Flow Rate FiO2 06/28/16 15:16 88 26 105/43 100 40 06/28/16 12:34 37.9 BiPAP 06/27/16 17:46 4.00 Intake and Output 06/27/16 06/27/16 06/28/16 Cumulative From/Thru 15:00 23:00 07:00 06/27/16 16:14 - 06/28/16 06:16 Intake Total 2000 ml 2087 ml 4087 ml Output Total 20 ml 450 ml 470 ml Balance 1980 ml 1637 ml 3617 ml Intake Oral 0 ml 0 ml IV Total 2000 ml 2087 ml 4087 ml Output Urine Total 20 ml 450 ml 470 ml # Bowel Movements 0 0 Exam General: Elderly female, in no acute distress, minimally interactive. HEENT: Normocephalic, atraumatic. External ears without defect. Pupils equal, round, and reactive to light and accommodation. Anicteric sclerae, moist conjunctivae, and no lid lag. Dry mucosa and poor dentition. Neck: Supple with full range of motion. No jugular venous distension. No bruits. No lymphadenopathy or thyromegaly. Cardiovascular: Regular rate and rhythm with no murmurs, rubs, or gallops appreciated Pulmonary: Decreased air movement and faint wheezes bilaterally. Oxymask in place. Abdomen: Absent bowel tones. Soft, nontender, nondistended. No hepatosplenomegaly or masses appreciated. Extremities: Right third toe amputation, cool lower extremities, no edema. Skin: Cool lower extremities. Decreased skin turgor. Sacral pressure ulcer. Neurological: Responds to simple commands. Decreased strength in the left upper extremity. Psychiatric: Alert and oriented to person but not place or time. Lab and Diagnostics Result Diagram: 06/28/16 0750 06/28/16 0750 X-Rays, CTs and MRIs X-RAY CHEST ONE VIEW, PORTABLE IMPRESSION: Bibasilar opacities compatible with atelectasis versus pneumonia. Please correlate with clinical and laboratory data. 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 Admitted for influenza A, acute hypercapnic and hypoxemic respiratory failure, possible pneumonia, and UTI. Hospital day 2. 1. Influenza A, present on admission, active. - Patient started on Tamiflu in the outpatient but is NPO after failed speech evaluation. - Peramivir 600 mg IV given on 06/28/16. - Patient did receive flu vaccine this year. - Treatment for respiratory failure as below. 2. Possible healthcare associated pneumonia, present on admission, active. - Chest x-ray 06/27/16 revealed bibasilar opacities compatible with atelectasis versus pneumonia. - On admission patient with WBC 16.0, respiratory failure, cough, and febrile. - Pro-calcitonin unremarkable at 0.11. Repeat in the morning. - Streptococcus pneumonia and legionella antigen negative. - Vancomycin and Zosyn given in the emergency department. - Antibiotics switched to vancomycin (06/27), cefepime (06/28), and azithromycin ( 06/28). - Treatment for respiratory failure as below. 3. Acute hypercapnic and hypoxemic respiratory failure, present on admission, active. - Initial ABG revealed a respiratory acidosis. ABGs improving with supplemental O2. - Patient initially on BiPAP now on oxygen mask at 4 L. - Repeat ABG if patient's respiratory status declines and consider placing back on BiPAP. - DuoNEB every 6 hours while awake. - Discussed patient's POLST with son and [id number] who are the patient's medical decision makers. Son stated he would like patient to be intubated if needed. - Pulmonology following. Appreciate time and expertise. 4. Urinary tract infection, present on admission, active. - UA with moderate bacteria, greater than 50 WBC, large leuk esterase, and positive nitrate. - Urine culture pending. - Prior urinary tract infections 2013 grew Proteus that was sensitive to cefepime. - Antibiotics as an #2. 5. Altered mental status, present on admission, active. - Mentation improved slightly over the day. Patient able to answer some yes and no questions. Alert to person but not place or time. - Likely secondary to infections and hypercapnia. - We will continue to monitor. 6. Elevated troponin, present on admission, active. - Initial troponin on admission 0.026 elevated to 0.038 and most recent 0.022. - No EKG changes. - Patient not complaining of chest pain although hard to assess due to mentation. - Etiology likely thought to be demand ischemia. 7. Chronic steroid use, present on admission, ongoing. - Possibly for COPD but difficult to ascertain. Will require more investigation. - Home regimen includes 5 mg of prednisone daily. - Solu-Cortef 50 mg every 8 hours for stress dose. 8. Hypothyroidism, present on admission, active. - TSH 0.355 suggesting possible overtreatment but difficult to assess in this acute setting. - Home dose of levothyroxine held this patient is NPO. - We will restart when appropriate. 9. Chronic kidney disease, present on admission, stable. - BUN and creatinine on admission 32 and 0.76. - We will avoid nephrotoxic agents as able. - Repeat BMP in the morning. 10. Sacral pressure ulcer, present on admission, active. - Wound care consulted. Does not appear infectious at this time. - We will continue to monitor. 11. Tachycardia, present on admission, chronic. - Home regimen includes diltiazem 120 mg daily. - Diltiazem hold at this time as patient is NPO. - We will start IV medication if patient becomes tachycardic. - Monitored on telemetry. Disposition: Prognosis guarded at this time. Patient resides at [facility] and will likely return at time of discharge. Pain Evaluation: Adequate Pain Control GI Prophylaxis: Not indicated VTE Prophylaxis: Sub-Q Heparin (Unfractionated) VTE Mechanical Devices: Intermittant Pneumatic CD Resuscitation Status: Limited Interventions (Intubate but DNR) Attending Statement The patient was seen and examined together with Dr. Caban on 06-28-16 and I agree with the history, exam and plan as outlined in the note above. MALINDA CABAN DO Jun 28, 2016 17:38 Chantale Bear MD Jun 29, 2016 08:16
--- NOTE | 2016-06-28 18:17 | NUR ---
P: Alteration in respiratory status I: Pt on bipap most of the day. Swallow evaluation done and pt failed, Strict NPO. notified and meds changed to IV. Turned Q 2 hours. Decub x2 and wound care here and mepilex placed. Mitchell patent and drained 400cc of bora cloudy urine. UA sent. Pt coughing up thick yellow creamy sputum and sample sent. Tamiflu medication changed to IV but pharmacy is locating the drug so 1600 dose not given yet. LR at 100cc/hr. 3L/OM with sats 94% . Pt alert and answers questions, but is a little disoriented as to what to do. Family updated on pt's condition and plan of care. 's notified them about code status and they are calling back to talk with MD as to whether they want intubation if pt is unable to handle her secretions. E: Guarded S: Frequent rounding. Frequent reminding to leave mask on.
[2016-06-28] MEDS: Cefepime Inj 2,000 MG in Dextrose 5% Minibag Plus 100 ML IV SCH (19:36)
[2016-06-28] MEDS: Heparin 5,000 Unit/mL Inj SUBQ SCH (19:36)
[2016-06-28] MEDS ORDERED: [UNRECOGNIZED DRUG - MIXTURE] IV ONE (20:25)
[2016-06-28] MEDS ORDERED: SODIUM CHLORIDE 0.9% IV ONE (20:33)
[2016-06-28] MEDS ORDERED: PERAMIVIR IV ONE (20:33)
[2016-06-28] MEDS ORDERED: 0.9% Sodium Chloride 100 ML ONE (20:57)
[2016-06-29] VITALS (14 sets, daily range): BP systolic 110–147; BP diastolic 42–55; PULSE 78–93; RESP 12–31; O2SAT 93–100
[2016-06-29 03:21] LABS: BASOPHILS % (AUTO) 0.1 % (0-3); EOSINOPHILS % (AUTO) 0 % (0-5); MONOCYTES % (AUTO) 6.7 % (4-12); Mean Corpuscular Hemoglobin 33.7 pg (27.0-35.0); Mean Corpuscular Volume 111.5 fL (81-100); NEUTROPHILS % (AUTO) 82.8 % (40-74); Platelet Count 112 bil/L (150-400)
[2016-06-29 03:41] LABS: Magnesium 1.3 mg/dL (1.6-2.6)
[2016-06-29] MEDS ORDERED: Magnesium Sulf 4 Gm/100 mL H2O 4 GM in IV Premix 1 EACH IV ONE (03:55)
[2016-06-29] MEDS: Lactated Ringer's 1,000 ML IV SCH ×2 (04:06→16:24)
--- NOTE | 2016-06-29 04:46 | NUR ---
Suctioning/IV/Mg/Critical Labs Call placed to MD regarding copious secretions. Order obtained for PRN Deep NT/Oral suctioning. Pt suctioned with little success by RT. IV in right wrist leaking and cool to the touch and appears puffy. IV d/c'ed intact. New 22G IV placed in patient's right forearm. Pt given 4 Gram Magnesium rider per MD order for level of 1.3. MD informed of critical low calcium level of 6.6. MD aware of value and does not want to replace with calcium gluconate at this time.
[2016-06-29 07:42] LABS: BASOPHILS % (AUTO) 0.2 % (0-3); EOSINOPHILS % (AUTO) 0.1 % (0-5); Mean Corpuscular Hemoglobin 33.7 pg (27.0-35.0); Mean Corpuscular Volume 109.2 fL (81-100); NEUTROPHILS % (AUTO) 66.2 % (40-74); Platelet Count 168 bil/L (150-400)
[2016-06-29] MEDS: Diltiazem CD 120 mg ER24 Capsule PO SCH (08:03)
[2016-06-29] MEDS: predniSONE 5 mg Tablet PO SCH (08:03)
[2016-06-29] MEDS: Heparin 5,000 Unit/mL Inj SUBQ SCH ×2 (08:04→21:07)
[2016-06-29] MEDS: Albuterol-Ipratropium 3 mL Inhalation Solution NEB SCH ×4 (08:20→20:32)
[2016-06-29] MEDS ORDERED: PERAMIVIR IV ONE (08:30)
[2016-06-29] MEDS ORDERED: SODIUM CHLORIDE 0.9% IV ONE (08:30)
--- NOTE | 2016-06-29 09:22 | NUR ---
JUWAN: Patient is unable to accept JUWAN. Per note on hard chart patient's family is out of state and was given copy on 06/28/16. [employer]SEM[employer] MACHINE ADJUSTER will need to follow up on 06/30/16 for further notification on JUWAN.
--- NOTE | 2016-06-29 10:03 | DRSVH ---
PROCEDURE: X-RAY CHEST ONE VIEW, PORTABLE ([id number]) INDICATIONS: infiltrate f/u TECHNIQUE: One view of the chest was acquired. COMPARISON: [facility], CR, XR CHEST 1VW (PORTABLE), 06/27/2016, 16:20. FINDINGS: Surgical changes and devices: None. Lungs and pleura: Persistent basilar air space opacities in small pleural effusions are unchanged. N o pneumothorax. Mediastinum: Mediastinal contours appear normal. Heart size is normal. Bones and chest wall: No suspicious bony lesions. Overlying soft tissues appear unremarkable. IMPRESSION: Bibasilar atelectasis versus aspiration or pneumonia not significantly changed. Correla te clinically. Dictated by: Nader Mann RRA Interpreted: Cynthia Han MD on 06/29/2016 at 10:02 Transcribed by: HECTOR on 06/29/2016 at 10:02 Approved by: Cynthia Han MD, PhD on 06/29/2016 at 16:57
--- NOTE | 2016-06-29 10:39 | PCM.PNMED ---
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 No documentation of pneumococcal vaccine. 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 There is some concern even regarding this clarification as family and those with power of tank crewmember are currently not in state and have not had significant sustained contact with the patient over the last months. Otherwise overnight was unremarkable. She continues on the NPPV this morning and is quite drowsy. However, with persistent send bothering her continuously, she does wake up sufficiently to interact somewhat for the interview by answering questions appropriately and following some simple commands. She denies pain. She denies difficulty breathing. She does report feeling very tired. ROS otherwise difficult to obtain given patient's status. Exam Vital Signs Vital Sign - Last Date Time Temp Pulse Resp B/P Pulse Ox O2 Delivery O2 Flow Rate FiO2 06/29/16 08:20 77 24 114/49 100 40 06/29/16 07:56 37.4 BiPAP 06/29/16 03:47 3.00 Intake and Output 06/28/16 06/28/16 06/29/16 Cumulative From/Thru 15:00 23:00 07:00 06/27/16 16:14 - 06/29/16 06:28 Intake Total 1514 ml 1512 ml 7113 ml Output Total 400 ml 575 ml 1445 ml Balance 1114 ml 937 ml 5668 ml Intake Oral 0 ml 0 ml IV Total 1514 ml 1512 ml 7113 ml Output Urine Total 400 ml 575 ml 1445 ml # Bowel Movements 0 0 Exam Gen.: Elderly female appropriate for stated age lying in hospital bed with NPPV mask in place. Does not appear to be in acute distress. Minimally interactive. HEENT: pupils are equal and reactive to light bilaterally, but EOM difficult to evaluate given lack of cooperation (though she does track somewhat), mucous membranes are dry, poor dentition. Chest: Relatively clear with scattered rales. Cardiovascular: Regular rate and rhythm with normal S1 and S2. I do not appreciate any murmurs. Radial pulses are 2+ bilaterally, posterior tibial pulses are 1+ bilaterally. 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 Lines: Peripheral, Mitchell catheter. IVs and Medications Medications Reviewed: Medications were reviewed in detail Lab and Diagnostics 66.2 % neutrophils, MCV is 109.2 (this is chronic). Pro-calcitonin 0.11, 0.06. TSH 0.355. Troponin 0.026, 0.038, 0.022. Calcium is low at 6.6, but corrects to approximately 8.6 (albumin last check was 1.5). Magnesium low this morning at 1.3. Phosphorus 2.5. Lactic acid is been negative 2. LFTs are normal. Micro- Blood culture drawn 06/27/1714:30 is negative to date. Repeat urine culture preliminary report of gram-negative rods greater than 100,000 colony-forming units (ID/sensitivity pending). MRSA screen by nasal swab is positive Legionella urine antigen negative, Streptococcus pneumoniae urine antigen negative Historical micro- Proteus mirabilis in urine culture 07/03/13 (sensitive: Cefepime, ceftriaxone, cefuroxime; resistant: ampicillin, cefazolin, ciprofloxacin, gentamicin, nitrofurantoin, penicillin, tetracycline, Bactrim; indeterminate: Levofloxacin, tobramycin) MRSA and upper respiratory tract swab culture 07/03/13 (resistant: Erythromycin, oxacillin. Otherwise sensitive). Result Diagram: 06/29/16 0725 06/29/16 0302 X-Rays, CTs and MRIs Chest x-ray this hospitalization demonstrates persistent known right hemidiaphragm elevation with some possible atelectasis in the base. There is also what appears to be a retrocardiac opacity on the left base. Additional Diagnostics ABG yesterday afternoon showed pH 7.38, PCO2 48.3, PO2 80.7 with a sat of 96.5% , bicarbonate 27.9. This was on NPPV 25/10 with an FiO2 of 0.40. Assessment & Plan 1. Acute (possibly on chronic) hypercapnic, hypoxic respiratory failure requiring NPPV-slowly improving per ABGs yesterday, but now showing increased drowsiness/sleepiness this morning. Will recheck ABG this this morning to assess. Would certainly hesitate to intubate this 89-year-old chronically ill female. If we do not see any improvement on the ABG and her mentation this afternoon will make family contacts to discuss further her/their wishes proceeding forward. 2. Altered mental status-likely secondary to her underlying infections and hypercapnia. However, we must entertain the possibility of alternative intracranial abnormality (such as stroke) should his altered mentation persist despite improvement of other factors. We will discuss consideration for noncontrast head CT if deemed appropriate with primary team. 3. Influenza A on Tamiflu (outpatient PCR positive for influenza A, negative for H1 N1, negative for B)-she received a dose of Peramivir IV yesterday. 4. 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 This is demonstrated by her persistent/chronic right hemidiaphragm elevation, and overall deconditioning (immobility syndrome). There is hope that she will improve with further NPPV, and we will proceed with that in mind. Primary team is appropriately started IV administration of steroid at stress doses. Recommend continuing when necessary duo nebs. 5. Pulmonary infiltrate on chest x-ray concerning for pneumonia (question for secondary bacterial infection following flu)-she did get her flu shot this year. No documentation of pneumococcal vaccine.-Most common cause of post-flu pneumonia is staph aureus (this is growing in her sputum (preliminary report), but there is certainly the potential for contamination of the sampled by upper respiratory tract colonization). She will continue in contact isolation for MRSA positivity. Pro-calcitonin is unremarkable 2. At this time there is certainly consideration for continuing an empiric antibiotic regimen for her UTI , but I suspect that her primary respiratory setback in this case is not infectious (except for her underlying influenza). We will continue to follow chest imaging and laboratory evaluations. 6. UTI-to be treated per primary team. 7. Hypothyroidism with laboratory evidence of over treatment-to be managed per primary team. Would recommend switching to IV administration of this medication. 8. Chronic kidney disease with good renal function currently-to be managed per primary team Recommendations: -We will check ABG this morning -Continue NPPV for now with reassessment this afternoon -Empiric antibiotics as discussed with primary team -Continue stress dose IV steroids -Continue duo nebs -Consideration for discussing with family/healthcare power of tank crewmember the true impact regarding any decision to intubate. -Consideration for noncontrast brain CT if we do not see marked improvement in mentation DVT prophylaxis: Heparin subcutaneous GI prophylaxis: None currently Patient is limited interventions: DO NOT RESUSCITATE. Intubate if necessary. Okay with medications and fluids. Time spent: 30 minutes King Ferris DO Jun 29, 2016 10:39
[2016-06-29] MEDS: Cefepime Inj 2,000 MG in Dextrose 5% Minibag Plus 100 ML IV SCH ×2 (10:40→21:07)
--- NOTE | 2016-06-29 10:54 | ABG ---
DateTimeAnalyzed 10:50:00 -_ pH ____7.317 - 7.350 7.450 pCO2 ___56.4__ -mmHg 35.0 45.0 pO2 ___95.1__ -mmHg 69.0 116 HCO3- ___28.0__ -mmol/L 22.0 26.0 ABE ____1.8__ -mmol/L -2.0 2.0 tHb ____9.1__ -g/dL O2Hb ___95.6__ -% COHb ____1.0__ -% MetHb ____1.0__ -% sO2 ___97.6__ -% FIO2 ___40.0__ -% Pressure_Support ___16.0__ -cmH2O CPAP ____5.0__ -cmH2O Set_RR ___18.0__ -b/min Drawn By gj - Date/Time Notified____ 10:54:00 -_ Spontaneous_RR ___26.0__ -b/min Oxygen Device 1 ____BIPAP - Notified By gj - Notified Whom DE LA HOUSSAYE - B 740 -mmHg tO2 ___12.4__ -Vol% Donnie test _Positive -
--- NOTE | 2016-06-29 14:11 | DRSVH ---
PROCEDURE: CT BRAIN WITHOUT CONTRAST ([id number]) INDICATIONS: somnolence not explained by hypercapnia TECHNIQUE: Noncontrast 4.5 mm thick angled axial sections acquired from the foramen magnum to the vertex, with c oronal reformats. COMPARISON: [facility], CT, BRAIN W/O CONTRAST, 07/03/2013, 15:39. FINDINGS: Image quality: Excellent. CSF spaces: Basal cisterns are patent. No extra-axial fluid collections. The ventricles are symmet michelle in size and shape. Brain: No intracranial bleeds or masses. There is cerebral volume loss for age, with resultant vent ricular and sulcal prominence. There are periventricular and deep white matter chronic small vessel ischemic changes. There is intracranial internal carotid artery atherosclerosis. Skull and face: Calvarium and visualized facial bones appear intact, without suspicious lesions. Sinuses: Visualized sinuses and mastoids are clear. IMPRESSION: 1. No acute intracranial process. 2. Moderate to severe atrophy and chronic microvascular ischemic changes. Dictated by: Veronica Flynn M.D. on 06/29/2016 at 14:09 Approved by: Veronica Flynn M.D. on 06/29/2016 at 14:09
--- NOTE | 2016-06-29 14:13 | NUR ---
Aspiration risk/PO meds held Patient continued to be weak and made little verbal contact /communication. Patient was able to nod her head appropriately to yes/ no questions. Morning PO meds on hold- patient did not pass her swallow evaluation by speech and continued to be high risk for aspiration- MD aware and will consider changing some medications to IV. Patient continued to have slightly congest but ineffective cough- oral suction PRN, will consult with RT fro NT suctioning when appropriate.
--- NOTE | 2016-06-29 15:29 | NUR ---
Social Work: Initial Assessment Data: Pt is an 89 y/o female admitted for sepsis, AMS, hypotension. Pt's PCP is Dr Xavier, pt's insurance is Medicare with [facility] supp. Pt's readmit score is 4. EMR reviewed. POLISHING PAD MOUNTER met with pt at bedside, pt only responded to yes or no questions. POLISHING PAD MOUNTER asked if it was okay to speak with her son regarding these matters, and she nodded yes. POLISHING PAD MOUNTER called pt's son, Prince, who states pt lives at [facility] in [place] [facility]. Pt is bed bound according to son. Pt does not drive, has history with HH previously, has no LT insurance, and no VA benefits. Pt is not a caregiver for another. POLISHING PAD MOUNTER called [facility] and left a message with admissions requesting a phone call back confirming they plan to take pt back at d/c. POLISHING PAD MOUNTER will continue to follow. Assessment: Pt from LT SNF. Plan: Pt will likely return to [facility] when medically stable for d/c. POLISHING PAD MOUNTER awaiting phone call back from [facility] regarding pt. POLISHING PAD MOUNTER will continue to follow. DEJA Mcclain Addendum: 06/29/16 at 1533 by EFRAIN DALY Amended: Links added.
--- NOTE | 2016-06-29 15:34 | NUR ---
NUTRITION ASSESSMENT Assess: 89 yo F w/ acute respiratory failure, AMS, and poss pneumonia. Pt is positive for influenza A. Per wound care, pt w/ 2 stage 2 pressure ulcers on her rt and lt buttocks. Pt on BiPAP. PMHx: Urinary incontinence, Tachycardia, COPD, Hypothyroidism, Neuropathy, Weakness, Dysphagia Skin cancer, Breast cancer s/p lumpectomy LABS: Reviewed. CO2 17, Cr 0.34, Ca 6.6, MEDICATIONS: Reviewed. Prednisone, Tamiflu DIET: NPO x2 GI symptoms/stool: No BM reported Skin integrity: 2 stage 2 PUs on lt (1.1cm x1cm x0.1cm) and rt (2cm x2cm x0.1 cm) buttock ANTHROPOMETRICS: Current Wt: 67.3 kg BMI: 23.2 kg/m2 Admit Wt: 67.2 kg IBW: 61.4 kgRecent wt changes: None noted ESTIMATED NEEDS: Wounds Calories: 0017-4899 kcal/d (30-35 kcal/kg/d) Protein: 80-100 g/d (1.2-1.5 g/kg/d) Fluids: ~2000 ml/d (25-30 ml/kg/d) NUTRITION DIAGNOSIS: 1) Increased nutrient needs related to healing as evidenced by 2 stage 2 PUs. 2) Inadequate oral intake related to dysphagia and weakness as evidenced by NPO status per ST. INTERVENTION: 1) If unable to advance diet in 1-2 days, recommend consideration of nutrition support. MONITOR/EVALUATE: ST, Diet adv/aidee, Labs, Nutrition status, POC. Will follow per moderate nutrition risk guidelines.
--- NOTE | 2016-06-29 17:35 | PCM.PNMED ---
Subjective Date of Service Jun 29, 2016 Dayana Gore is an 89-year-old female resident of a local [facility] facility ( [facility]) with past medical history of recently diagnosed influenza A (by PCR last week, on Tamiflu), documented COPD, and neuromuscular disease with associated neuropathy and myopathy who presented to the ER via EMS from the [facility] with reported complaint of altered mentation ( specifically decreased interactiveness with staff), and increasing O2 needs (79 % on room air, 96% on 5 L by nasal cannula at facility). Admitted for influenza A, acute hypercapnic and hypoxemic respiratory failure, possible pneumonia, and UTI. Hospital day 3. Overnight: Overnight patient was on BiPAP and maintained sats. She did have copious secretions that RT had difficulty suctioning. Today: Patient minimal responsive. Opens eyes when her name is called and she is gently shook and quickly closes them again. She is on nasal canula at this time. Review of systems unobtainable due to mental status. Exam Vital Signs Vital Sign - Last Date Time Temp Pulse Resp B/P Pulse Ox O2 Delivery O2 Flow Rate FiO2 06/29/16 03:48 91 23 120/45 99 40 06/29/16 03:47 37.4 OxyMask 3.00 Intake and Output 06/28/16 06/28/16 06/29/16 Cumulative From/Thru 15:00 23:00 07:00 06/27/16 16:14 - 06/29/16 06:28 Intake Total 1514 ml 1512 ml 7113 ml Output Total 400 ml 575 ml 1445 ml Balance 1114 ml 937 ml 5668 ml Intake Oral 0 ml 0 ml IV Total 1514 ml 1512 ml 7113 ml Output Urine Total 400 ml 575 ml 1445 ml # Bowel Movements 0 0 Exam General: Elderly female, in no acute distress, minimally interactive. HEENT: Normocephalic, atraumatic. External ears without defect. Pupils equal, round, and reactive to light and accommodation. Anicteric sclerae, moist conjunctivae, and no lid lag. Dry mucosa and poor dentition. Neck: Supple with full range of motion. No jugular venous distension. No bruits. No lymphadenopathy or thyromegaly. Cardiovascular: Regular rate and rhythm with no murmurs, rubs, or gallops appreciated Pulmonary: Decreased air movement and faint wheezes bilaterally. Oxymask in place. Abdomen: Absent bowel tones. Soft, nontender, nondistended. No hepatosplenomegaly or masses appreciated. Extremities: Right third toe amputation, cool lower extremities, no edema. Skin: Cool lower extremities. Decreased skin turgor. Sacral pressure ulcer. Neurological: Responds to simple commands. Decreased strength in the left upper extremity. Psychiatric: Alert and oriented to person but not place or time. Lab and Diagnostics Result Diagram: 06/29/16 0725 06/29/16 0302 Microbiology Influenza A positive X-Rays, CTs and MRIs X-RAY CHEST ONE VIEW, PORTABLE IMPRESSION: Bibasilar opacities compatible with atelectasis versus pneumonia. Please correlate with clinical and laboratory data. Dictated by: Cynthia Han MD, PhD on 06/27/2016 at 16:44 Approved by: Cynthia Han MD, PhD on 06/27/2016 at 16:44 Assessment & Plan Sofía is an 89-year-old female resident of a local penitentiary facility ( [facility]) with past medical history of recently diagnosed influenza A (by PCR last week, on Tamiflu), documented COPD, and neuromuscular disease with associated neuropathy and myopathy who presented to the ER via EMS from the [facility] with reported complaint of altered mentation ( specifically decreased interactiveness with staff), and increasing O2 needs (79 % on room air, 96% on 5 L by nasal cannula at facility). Admitted for influenza A, acute hypercapnic and hypoxemic respiratory failure, possible pneumonia, and UTI. Hospital day 3. 1. Influenza A, present on admission, active. - Patient started on Tamiflu in the outpatient but is NPO after failed speech evaluation. - Peramivir 600 mg IV given on 06/28/16. - Patient did receive flu vaccine this year. - Treatment for respiratory failure as below. 2. Possible healthcare associated pneumonia, present on admission, active. - Chest x-ray 06/27/16 revealed bibasilar opacities compatible with atelectasis versus pneumonia. - On admission patient with WBC 16.0, respiratory failure, cough, and febrile. - Pro-calcitonin unremarkable at 0.11 on admission. Currently 0.06. - Streptococcus pneumonia and legionella antigen negative. - Vancomycin and Zosyn given in the emergency department. - Antibiotics switched to vancomycin (06/27), cefepime (06/28), and azithromycin ( 06/28). - Treatment for respiratory failure as below. 3. Acute hypercapnic and hypoxemic respiratory failure, present on admission, active. - Initial ABG revealed a respiratory acidosis. ABGs improving with supplemental O2. - Patient initially on BiPAP now on oxygen mask at 4 L. - Repeat ABG if patient's respiratory status declines and consider placing back on BiPAP. - DuoNEB every 6 hours while awake. - Pulmonology following. Appreciate time and expertise. 4. Urinary tract infection, present on admission, active. - UA with moderate bacteria, greater than 50 WBC, large leuk esterase, and positive nitrate. - Urine culture contaminated repeat sent. - Prior urinary tract infections 2013 grew Proteus that was sensitive to cefepime. - Antibiotics as an #2. 5. Altered mental status, present on admission, active. - Mentation improved slightly over the day. Patient able to answer some yes and no questions. Alert to person but not place or time. - Likely secondary to infections and hypercapnia. - CT head showed no acute process. - We will continue to monitor. 6. Elevated troponin, present on admission, active. - Initial troponin on admission 0.026 elevated to 0.038 and most recent 0.022. - No EKG changes. - Patient not complaining of chest pain although hard to assess due to mentation. - Etiology likely thought to be demand ischemia. 7. Chronic steroid use, present on admission, ongoing. - Home regimen includes 5 mg of prednisone daily. - Solu-Cortef 50 mg every 8 hours for stress dose. 8. Hypothyroidism, present on admission, active. - TSH 0.355 suggesting possible overtreatment but difficult to assess in this acute setting. - Home dose of levothyroxine held this patient is NPO. - We will restart when appropriate. 9. Chronic kidney disease, present on admission, stable. - BUN and creatinine on admission 32 and 0.76. - We will avoid nephrotoxic agents as able. - Repeat BMP in the morning. 10. Sacral pressure ulcer, present on admission, active. - Wound care consulted. Does not appear infectious at this time. - We will continue to monitor. 11. Tachycardia, present on admission, chronic. - Home regimen includes diltiazem 120 mg daily. - Diltiazem hold at this time as patient is NPO. - We will start IV medication if patient becomes tachycardic. - Monitored on telemetry. Disposition: Prognosis guarded at this time. Patient resides at [facility] and will likely return at time of discharge. GI Prophylaxis: Not indicated VTE Prophylaxis: Sub-Q Heparin (Unfractionated) VTE Mechanical Devices: Intermittant Pneumatic CD Resuscitation Status: Limited Interventions (Intubate but DNR) Attending Statement The patient was seen and examined together with Dr. Caban on 06-29-16 and I agree with the history, exam and plan as outlined in the note above. MALINDA CABAN DO Jun 29, 2016 07:55 Chantale Bear MD Jun 30, 2016 13:55
--- NOTE | 2016-06-29 17:48 | NUR ---
Lab changes Low magnesium at 1.3- magnesium replaced per nightshift RN. Re-checked magnesium at 6.6 and unusually high- MD aware- labs ordered fro am 06-30-16. Low HH at 7.0 and 23.2 based on 0300 labs this morning and significantly lower than yesterday. HH rechecked at o725 was 9.2 and 29.8. No S/S of bleeding were noted- MD aware and will recheck labs in AM.
[2016-06-29] MEDS ORDERED: 0.9% Sodium Chloride 250 ML ONE (21:01)
[2016-06-30] VITALS (15 sets, daily range): BP systolic 101–156; BP diastolic 49–90; PULSE 86–100; RESP 17–46; O2SAT 93–100
[2016-06-30] MEDS: Lactated Ringer's 1,000 ML IV SCH ×2 (04:10→11:59)
[2016-06-30 04:19] LABS: BASOPHILS % (AUTO) 0.3 % (0-3); EOSINOPHILS % (AUTO) 1.4 % (0-5); MONOCYTES % (AUTO) 15.9 % (4-12); Mean Corpuscular Hemoglobin 34.3 pg (27.0-35.0); Mean Corpuscular Volume 108.5 fL (81-100); NEUTROPHILS % (AUTO) 57.4 % (40-74); Platelet Count 195 bil/L (150-400)
[2016-06-30 04:43] LABS: Magnesium 2.6 mg/dL (1.6-2.6); Phosphorus 2.5 mg/dL (2.5-4.9)
[2016-06-30] MEDS ORDERED: Vancomycin Serum Trough XX ONE (07:30)
--- NOTE | 2016-06-30 07:30 | ABG ---
DateTimeAnalyzed 07:23:00 -_ pH ____7.135 - 7.350 7.450 pCO2 ___88.8__ -mmHg 35.0 45.0 pO2 101 -mmHg 69.0 116 HCO3- ___28.6__ -mmol/L 22.0 26.0 ABE ___-1.9__ -mmol/L -2.0 2.0 tHb ___10.4__ -g/dL O2Hb ___95.5__ -% COHb ____0.6__ -% MetHb ____0.9__ -% sO2 ___97.0__ -% FIO2 ___50.0__ -% Drawn By JJ - Date/Time Notified____ 07:25:00 -_ Spontaneous_RR ___30.0__ -b/min Liter_Flow ____6.0__ -L/min Oxygen Device 1 __OSYMASK - Notified By jj - Notified Whom DR DE LA HOUSSAYE -___ B 743 -mmHg tO2 ___14.1__ -Vol% Donnie test _Positive -
[2016-06-30] MEDS: Albuterol-Ipratropium 3 mL Inhalation Solution NEB SCH ×4 (07:46→21:30)
[2016-06-30] MEDS ORDERED: Hydrocortisone 50 mg/mL 2 mL Inj IVPUSH ONE (08:30)
--- NOTE | 2016-06-30 08:30 | PCM.PNMED ---
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 No documentation of pneumococcal vaccine. Primary respiratory acidosis UTI with gram-negative rods Immobility syndrome with significant deconditioning (requires a lift for transfers) Hypothyroidism with laboratory evidence of over treatment Chronic kidney disease with good renal function currently Subjective: Overnight she was more somnolent, so they put her back on NPPV for about 1.5 hours. currently off, and not interactive beyond opening her eyes to sound of her name. ROS otherwise not obtainable given patient's status. Exam Vital Signs Vital Sign - Last Date Time Temp Pulse Resp B/P Pulse Ox O2 Delivery O2 Flow Rate FiO2 06/30/16 07:46 80 33 96 28 06/30/16 05:18 137/56 06/30/16 05:11 36.1 06/30/16 05:09 OxyMask 3.00 Intake and Output 06/29/16 06/29/16 06/30/16 Cumulative From/Thru 15:00 23:00 07:00 06/27/16 16:14 - 06/30/16 06:36 Intake Total 1366 ml 0 ml 8479 ml Output Total 900 ml 425 ml 2770 ml Balance 466 ml -425 ml 5709 ml Intake Oral 0 ml 0 ml IV Total 1366 ml 8479 ml Output Urine Total 900 ml 425 ml 2770 ml # Bowel Movements 0 0 Exam Gen.: Elderly female appropriate for stated age lying in hospital bed with NPPV mask in place. Does not appear to be in acute distress. Not interactive/ somnolent. HEENT: pupils are equal and reactive to light bilaterally, but EOM difficult to evaluate given lack of cooperation, mucous membranes are dry, poor dentition. Oxymask in place. Chest: Relatively clear with scattered rales. Respirations are shallow and have a prolonged expiratory phase. Cardiovascular: Regular rate and rhythm with normal S1 and S2. I do not appreciate any murmurs. Radial pulses are 2+ bilaterally, posterior tibial pulses are 1+ bilaterally. 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 Lines: Peripheral, Mitchell catheter. IVs and Medications IV Fluids LR at 100cc/hr Medications Reviewed: Medications were reviewed in detail Lab and Diagnostics 57.4% neutrophils, MCV is 108.5 (this is chronic). Pro-calcitonin 0.11, 0.06. TSH 0.355. Troponin 0.026, 0.038, 0.022. Calcium is low at 7.6, but corrects to approximately 8.6 (albumin last check was 2.7). Magnesium 2.6. Phosphorus 2.5. Lactic acid negative 2. LFTs are normal. Influenza A positive in outpatient PCR. Micro- Blood culture drawn 06/27/1714:30 is negative to date. Repeat urine culture preliminary report of gram-negative rods greater than 100,000 colony-forming units (ID/sensitivity pending). MRSA screen by nasal swab is positive Sputum 06/28/16 preliminary: staph aureus probable (ID/sensitivity pending). Legionella urine antigen negative, Streptococcus pneumoniae urine antigen negative Historical micro- Proteus mirabilis in urine culture 07/03/13 (sensitive: Cefepime, ceftriaxone, cefuroxime; resistant: ampicillin, cefazolin, ciprofloxacin, gentamicin, nitrofurantoin, penicillin, tetracycline, Bactrim; indeterminate: Levofloxacin, tobramycin) MRSA and upper respiratory tract swab culture 07/03/13 (resistant: Erythromycin, oxacillin. Otherwise sensitive). Result Diagram: 06/30/16 0350 06/30/16 0350 X-Rays, CTs and MRIs Chest x-ray this hospitalization demonstrates persistent known right hemidiaphragm elevation with some possible atelectasis in the base. There is also what appears to be a retrocardiac opacity on the left base. Additional Diagnostics ABG repeated today given somnolence, just on oxymask: pH 7.135, PCO2 89, PO2 101. Assessment & Plan 1. Acute (possibly on chronic) hypercapnic, hypoxic respiratory failure requiring NPPV-Showing increased somnolence this morning. ABG shows respiratory acidosis. Placed back on BiPAP. Consideration for intubation to allow family to arrive (Dr. Ortega spoke with [facility] this AM, and they will be arriving Monday at approx 1500). Will recheck ABG later this morning after a few hours on NPPV to assess. Would certainly hesitate to intubate this 89-year- old chronically ill female, but per conversation with family, it would be simply to allow them to visit/say goodbye. If we do not see any improvement on the ABG and her mentation later this morning will proceed with intubation. 2. Altered mental status-likely secondary to her underlying infections and hypercapnia that is not improving (likely due to significant underlying chronic conditions that are slowly overwhelming her). CT brain without contrast was negative for acute intracranial abnormality to suggest possible etiology of her altered mentation. 3. Influenza A on Tamiflu (outpatient PCR positive for influenza A, negative for H1 N1, negative for B)-she received a dose of Peramivir IV 06/28/16. 4. 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 This is demonstrated by her persistent/chronic right hemidiaphragm elevation, and overall deconditioning (immobility syndrome). NPPV and intubation as above in # 1. Primary team has appropriately started IV administration of steroid at stress doses. Recommend continuing duo nebs. 5. Pulmonary infiltrate on chest x-ray concerning for pneumonia (question for secondary bacterial infection following flu)-she did get her flu shot this year. No documentation of pneumococcal vaccine.-Most common cause of post-flu pneumonia is staph aureus (this is growing in her sputum (preliminary report), but there is certainly the potential for contamination of the sample by upper respiratory tract colonization). She will continue in contact isolation for MRSA positivity. Pro-calcitonin is unremarkable 2. At this time there is certainly consideration for continuing an empiric antibiotic regimen for her UTI , but I suspect that her primary respiratory setback in this case is not infectious (except for her underlying influenza). 6. UTI-to be treated per primary team. 7. Hypothyroidism with laboratory evidence of over treatment-to be managed per primary team. Would recommend switching to IV administration of this medication. 8. Chronic kidney disease with good renal function currently-to be managed per primary team Recommendations: -We will check repeat ABG this morning after a few hours of NPPV -Consideration for intubation later this AM if not improvement on NPPV -Empiric antibiotics as discussed with primary team -Continue stress dose IV steroids -Continue duo nebs -Family contacted: they plan to be here by Sat at approx 1500 DVT prophylaxis: Heparin subcutaneous GI prophylaxis: None currently Patient is limited interventions: DO NOT RESUSCITATE. Intubate if necessary. Okay with medications and fluids. Time spent: 30 minutes de King Heredia DO Jun 30, 2016 08:30
[2016-06-30] MEDS: Heparin 5,000 Unit/mL Inj SUBQ SCH ×2 (08:58→21:20)
[2016-06-30] MEDS: Cefepime Inj 2,000 MG in Dextrose 5% Minibag Plus 100 ML IV SCH ×2 (09:02→21:05)
[2016-06-30] MEDS: Hydrocortisone 50 mg/mL 2 mL Inj IVPUSH SCH ×3 (09:14→21:07)
--- NOTE | 2016-06-30 09:30 | NUR ---
Mentation Pt pretty obtundent this am, opens eyes when spoken to but won't answer, wont follow commands and keeps pulling bipap off. MDs aware and rounding on pt, restraint order signed and sitter at the bedside. Plan is to get ABG at 1000 and depending on results we will intubate or continue with bipap. Continue to monitor Addendum: 06/30/16 at 1713 by AYDEN RACHEL RN Update ABG at 1000 is within normal range. Plan is to keep pt on Bipap Q1 hour then take off and use Oxymask or NC for 2 hours then Bipap again 1 hour if pt alert. By the end of the day Pt has eyes open, still not communicating but following with eyes and following commands. Pt has tolerated Bipap and resting peacefully so restraints were never applied. Just had a sitter at the bedside.
--- NOTE | 2016-06-30 09:53 | PCM.PNMED ---
Subjective Date of Service Jun 30, 2016 Dayana Gore is an 89-year-old female resident of a local jail facility ( [facility]) with past medical history of recently diagnosed influenza A (by PCR last week, on Tamiflu), documented COPD, and neuromuscular disease with associated neuropathy and myopathy who presented [facility] the ER [facility] with reported complaint of altered mentation ( specifically decreased interactiveness with staff), and increasing O2 needs (79 % on room air, 96% on 5 L by nasal cannula at facility). Admitted for influenza A, acute hypercapnic and hypoxemic respiratory failure, possible pneumonia, and UTI. Hospital day 4. Overnight: Overnight patient alternated between BiPAP and nasal cannula. Patient was less responsive and ABG was obtained showing a respiratory acidosis so patient was placed back on BiPAP. Patient continues to struggle to manage her secretions adequately. Today: Patient minimal responsive. Irritated and pulling at BiPAP. Discussed patient's status with family this morning and our plan to repeat an ABG in a few hours and determine if she requires intubation at that time. Review of systems unobtainable due to mental status. Exam Vital Signs Vital Sign - Last Date Time Temp Pulse Resp B/P Pulse Ox O2 Delivery O2 Flow Rate FiO2 06/30/16 05:38 90 06/30/16 05:18 30 137/56 95 35 06/30/16 05:11 36.1 06/30/16 05:09 OxyMask 3.00 Intake and Output 06/29/16 06/29/16 06/30/16 Cumulative From/Thru 15:00 23:00 07:00 06/27/16 16:14 - 06/29/16 20:00 Intake Total 1366 ml 8479 ml Output Total 900 ml 2345 ml Balance 466 ml 6134 ml Intake Oral 0 ml IV Total 1366 ml 8479 ml Output Urine Total 900 ml 2345 ml # Bowel Movements 0 Exam General: Elderly female, agitated and pulling at BiPAP, does not follow commands. HEENT: Normocephalic, atraumatic. External ears without defect. Pupils equal, round, and reactive to light and accommodation. Anicteric sclerae, moist conjunctivae, and no lid lag. BiPAP in place. Copious oral secretions. Poor dentition. Neck: Supple with full range of motion. No jugular venous distension. No bruits. No lymphadenopathy or thyromegaly. Cardiovascular: Regular rate and rhythm with no murmurs, rubs, or gallops appreciated Pulmonary: Decreased air movement and faint wheezes bilaterally. Abdomen: Bowel tones present. Soft, nontender, nondistended. No hepatosplenomegaly or masses appreciated. Extremities: Right third toe amputation, cool lower extremities, no edema. Skin: Cool lower extremities. Decreased skin turgor. Sacral pressure ulcer. Neurological: Decreased strength in the left upper extremity. Psychiatric: Not alert and oriented. Lab and Diagnostics Ca 7.6 CorCa 8.6 Albumin 2.7 Procalcitonin 0.06 Result Diagram: 06/30/16 0350 06/30/16 0350 Microbiology Influenza A positive X-Rays, CTs and MRIs CT BRAIN WITHOUT CONTRAST IMPRESSION: 1. No acute intracranial process. 2. Moderate to severe atrophy and chronic microvascular ischemic changes. Dictated by: Veronica Flynn M.D. on 06/29/2016 at 14:09 Approved by: Veronica Flynn M.D. on 06/29/2016 at 14:09 X-RAY CHEST ONE VIEW, PORTABLE IMPRESSION: Bibasilar atelectasis versus aspiration or pneumonia not significantly changed. Correlate clinically. Dictated by: Nader Mann [facility] Interpreted: Cynthia Han MD on 06/29/2016 at 10:02 Transcribed by: HECTOR on 06/29/2016 at 10:02 Approved by: Cynthia Han MD, PhD on 06/29/2016 at 16:57 X-RAY CHEST ONE VIEW, PORTABLE IMPRESSION: Bibasilar opacities compatible with atelectasis versus pneumonia. Please correlate with clinical and laboratory data. Dictated by: Cynthia Han MD, PhD on 06/27/2016 at 16:44 Approved by: Cynthia Han MD, PhD on 06/27/2016 at 16:44 Additional Diagnostics ABG 06/29 showed pH 7.38, PCO2 48.3, PO2 80.7 with a sat of 96.5%, bicarbonate 27.9. This was on NPPV 25/10 with an FiO2 of 0.40. Assessment & Plan Sofía is an 89-year-old female resident of a local jail facility ( [facility]) with past medical history of recently diagnosed influenza A (by PCR last week, on Tamiflu), documented COPD, and neuromuscular disease with associated neuropathy and myopathy who presented to the ER [facility] with reported complaint of altered mentation ( specifically decreased interactiveness with staff), and increasing O2 needs (79 % on room air, 96% on 5 L by nasal cannula at facility). Admitted for influenza A, acute hypercapnic and hypoxemic respiratory failure, possible pneumonia, and UTI. Hospital day 4. 1. Influenza A, present on admission, active. - Patient started on Tamiflu in the outpatient but is NPO after failed speech evaluation. - Peramivir 600 mg IV given on 06/28/16. - Patient did receive flu vaccine this year. - Treatment for respiratory failure as below. 2. Possible healthcare associated pneumonia, present on admission, active. - Chest x-ray 06/27/16 revealed bibasilar opacities compatible with atelectasis versus pneumonia. - On admission patient with WBC 16.0, respiratory failure, cough, and febrile. - Pro-calcitonin unremarkable at 0.11 on admission and 0.06 on 06/29. - Streptococcus pneumonia and legionella antigen negative. - Vancomycin and Zosyn given in the emergency department. - Antibiotics switched to vancomycin (06/27), cefepime (06/28), and azithromycin ( 06/28). - Treatment for respiratory failure as below. 3. Acute hypercapnic and hypoxemic respiratory failure, present on admission, active. - Initial ABG revealed a respiratory acidosis. ABGs initially improving but on 06/30 pH 7.135 with PCO2 of 89. - Patient on BiPAP repeat ABG at 1000. At this time evaluate possible need for intubation. - DuoNEB every 6 hours while awake. - Pulmonology following. Appreciate time and expertise. 4. Urinary tract infection, present on admission, active. - UA with moderate bacteria, greater than 50 WBC, large leuk esterase, and positive nitrate. - Urine culture contaminated repeat sent. - Prior urinary tract infections 2013 grew Proteus that was sensitive to cefepime. - Antibiotics as an #2. 5. Altered mental status, present on admission, active. - Patient not responsive to simple commands or questions. Agitated and pulling at BiPAP. - Likely secondary to infections and hypercapnia. - CT head showed no acute process. - We will continue to monitor. 6. Elevated troponin, present on admission, active. - Initial troponin on admission 0.026 elevated to 0.038 and most recent 0.022. - No EKG changes. - Patient not complaining of chest pain although hard to assess due to mentation. - Etiology likely thought to be demand ischemia. 7. Chronic steroid use, present on admission, ongoing. - Home regimen includes 5 mg of prednisone daily. - Solu-Cortef 50 mg every 6 hours for stress dose. 8. Hypothyroidism, present on admission, active. - TSH 0.355 suggesting possible overtreatment but difficult to assess in this acute setting. - Home dose of levothyroxine held this patient is NPO. - We will restart when appropriate. 9. Chronic kidney disease, present on admission, stable. - BUN and creatinine on admission 32 and 0.76. - We will avoid nephrotoxic agents as able. - Repeat BMP in the morning. 10. Sacral pressure ulcer, present on admission, active. - Wound care consulted. Does not appear infectious at this time. - We will continue to monitor. 11. Tachycardia, present on admission, chronic. - Home regimen includes diltiazem 120 mg daily. - Diltiazem hold at this time as patient is NPO. - We will start IV medication if patient becomes tachycardic. - Monitored on telemetry. Disposition: Prognosis guarded at this time. Patient resides at [facility] and will likely return at time of discharge. GI Prophylaxis: Not indicated VTE Prophylaxis: Sub-Q Heparin (Unfractionated) VTE Mechanical Devices: Intermittant Pneumatic CD Resuscitation Status: Limited Interventions (Intubate but DNR) Time spent 35 min Attending Statement The patient was seen and examined together with Resident/House-staff on 06/30/16 and I agree with the history, exam and plan as outlined in the note above. MALINDA CABAN DO Jun 30, 2016 06:32 Isra Hernández Jul 01, 2016 17:11
--- NOTE | 2016-06-30 10:11 | ABG ---
DateTimeAnalyzed 10:06:00 -_ pH ____7.377 - 7.350 7.450 pCO2 ___46.4__ -mmHg 35.0 45.0 pO2 ___76.5__ -mmHg 69.0 116 HCO3- ___26.6__ -mmol/L 22.0 26.0 ABE ____1.6__ -mmol/L -2.0 2.0 tHb ___10.3__ -g/dL O2Hb ___95.1__ -% COHb ____1.1__ -% MetHb ____0.7__ -% sO2 ___96.8__ -% FIO2 ___28.0__ -% CPAP ___16.0__ -cmH2O PEEP ____5.0__ -cmH2O Vt __422.0__ -L Drawn By jj - Date/Time Notified____ 10:11:00 -_ Spontaneous_RR ___24.0__ -b/min Oxygen Device 1 ____BIPAP - Notified By jj - Notified Whom dr maral - B 744 -mmHg tO2 ___13.8__ -Vol% Donnie test _Positive -
--- NOTE | 2016-06-30 10:21 | DRSVH ---
PROCEDURE: X-RAY CHEST ONE VIEW, PORTABLE ([id number]) INDICATIONS: INC SHORT OF BREATH TECHNIQUE: One view of the chest was acquired. COMPARISON: [facility], CR, CHEST 1VW (PORTABLE), 07/05/2013, 9:15. [facility], CR, XR CHEST 1VW (PORTABLE), 06/27/2016, 16:20. [facility], CR, XR CHEST 1VW (PORTABL E), 06/29/2016, 7:44. FINDINGS: Surgical changes and devices: None. Lungs and pleura: Small pleural effusions and bibasilar airspace opacities not significantly changed. No pneumothorax. Mediastinum: Mediastinal contours appear normal. Heart size is normal. Bones and chest wall: No suspicious bony lesions. Overlying soft tissues appear unremarkable. IMPRESSION: Small pleural effusions and basilar opacities consistent with compressive atelectasis maninder george pneumonia. Dictated by: Nader Mann [facility] Interpreted: Cynthia Han MD on 06/30/2016 at 10:21 Transcribed by: HECTOR on 06/30/2016 at 10:21 Approved by: Cynthia Han MD, PhD on 06/30/2016 at 16:34
[2016-06-30] MEDS: Mupirocin 2% 22 Gm Ointment TOPICAL SCH ×2 (11:40→21:21)
--- NOTE | 2016-06-30 15:11 | NUR ---
Social Work: Continued Discharge Planning D: Pt discussed in am rounds. Pt is minimally responsive with poor prognosis. Repeat labs scheduled for today to determine if pt's requires intubation. Pt comes from [facility] where she is a LTC resident. TORCH BRAZER spoke with Josephine Chin at [facility] who states they can accept the pt back with Dr. Oliver to follow, pending clinical course. PPW on chart. A: Pt who resides at [facility]. P: Evolving; pt's prognosis is guarded at this time; if improved pt expected to discharge back to [facility]. DEJA Brito
[2016-07-01] VITALS (17 sets, daily range): BP systolic 102–142; BP diastolic 49–71; PULSE 87–122; RESP 19–35; O2SAT 89–97
[2016-07-01] MEDS: Lactated Ringer's 1,000 ML IV SCH ×3 (01:56→20:55)
--- NOTE | 2016-07-01 02:15 | NUR ---
Respiratory effort and bipap. Patient has continued to have moderate amounts of thick secretions that requires oral suctioning to be removed. Patient continues to have a persistent mildly productive cough. Patient is being transitioned between oxymask and bipap. Patient is maintaining saturations in the mid 90's. Patient is slightly more alert this evening then last night. Patient will open her eye and look at you but will not fallow commands.
[2016-07-01] MEDS: Hydrocortisone 50 mg/mL 2 mL Inj IVPUSH SCH ×4 (02:46→20:54)
[2016-07-01 03:41] LABS: BASOPHILS % (AUTO) 0.2 % (0-3); EOSINOPHILS % (AUTO) 0 % (0-5); MONOCYTES % (AUTO) 6.5 % (4-12); Mean Corpuscular Hemoglobin 33.8 pg (27.0-35.0); Mean Corpuscular Volume 107.3 fL (81-100); NEUTROPHILS % (AUTO) 82.5 % (40-74); Platelet Count 236 bil/L (150-400)
[2016-07-01 04:02] LABS: Magnesium 2.1 mg/dL (1.6-2.6); Phosphorus 2.6 mg/dL (2.5-4.9)
[2016-07-01] MEDS: Albuterol-Ipratropium 3 mL Inhalation Solution NEB SCH ×4 (07:57→20:21)
--- NOTE | 2016-07-01 08:27 | PCM.PNMED ---
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 No documentation of pneumococcal vaccine. Primary respiratory acidosis UTI with gram-negative rods Immobility syndrome with significant deconditioning (requires a lift for transfers) Hypothyroidism with laboratory evidence of over treatment Chronic kidney disease with good renal function currently Subjective: Overnight she was placed on and off BiPAP in a 1:2 on:off hour schedule (based to some degree on mentation). This AM, she is currently on (has been for approx 1.5-2 hour), and not interactive beyond opening her eyes to sound of her name. ROS otherwise not obtainable given patient's status. Afternoon reassessment: Patient found to be tachypneic and in apparent distress. RT adjusted BiPAP settings, but to no avail. We removed the BiPAP, and patient appeared more calm , but still shaking her head from side to side and clicking her teeth together. She is not interactive beyond withdrawal from noxious stimuli. Plan: We will start Fentanyl 12.5mg IV push q2h PRN for pain/agitation/anxiety/ distress. If administration of this medication results in respiratory depression /CO2 retention, then we will consider proceeding with intubation according to the wishes communicated by her family (scheduled to arrive tomorrow afternoon). Exam Vital Signs Vital Sign - Last Date Time Temp Pulse Resp B/P Pulse Ox O2 Delivery O2 Flow Rate FiO2 07/01/16 05:56 87 07/01/16 05:18 27 89 28 07/01/16 03:56 36.5 138/63 OxyMask 5.50 Intake and Output 06/30/16 06/30/16 07/01/16 Cumulative From/Thru 15:00 23:00 07:00 06/27/16 16:14 - 07/01/16 06:27 Intake Total 3363 ml 1499 ml 84663 ml Output Total 850 ml 600 ml 4220 ml Balance 2513 ml 899 ml 9121 ml Intake Oral 0 ml 0 ml 0 ml IV Total 3363 ml 1499 ml 81589 ml Output Urine Total 850 ml 600 ml 4220 ml # Bowel Movements 1 1 Exam Gen.: Elderly female appropriate for stated age lying in hospital bed with NPPV mask in place. Does not appear to be in acute distress. Not interactive/ somnolent. HEENT: pupils are equal and reactive to light bilaterally, but EOM difficult to evaluate given lack of cooperation, mucous membranes are dry, poor dentition. NPPV in place. Chest: Relatively clear with scattered rales. Respirations are shallow and have a prolonged expiratory phase. Cardiovascular: Regular rate and rhythm with normal S1 and S2. I do not appreciate any murmurs. Radial pulses are 2+ bilaterally, posterior tibial pulses are 1+ bilaterally. 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 Lines: Peripheral, Mitchell catheter. IVs and Medications IV Fluids LR at 100 Medications Reviewed: Medications were reviewed in detail Lab and Diagnostics Influenza A positive in outpatient PCR. Micro- Blood culture drawn 06/27/16 15:30 is negative to date. Repeat urine culture preliminary report of gram-negative rods greater than 100,000 colony-forming units (ID/sensitivity pending). MRSA screen by nasal swab is positive Sputum 06/28/16 preliminary: staph aureus probable (ID/sensitivity pending). Legionella urine antigen negative, Streptococcus pneumoniae urine antigen negative Result Diagram: 07/01/1632407/01/16 032 Assessment & Plan 1. Acute (possibly on chronic) hypercapnic, hypoxic respiratory failure requiring NPPV-Showing increased somnolence this morning despite being on BiPAP. ABG pending. If hypercapnic on BiPAP we will need to adjust setting, or consider intubation. Consideration for intubation to allow family to arrive ( Dr. Ortega spoke with DIL, and they plan on arriving Monday at approx 1500). Would certainly hesitate to intubate this 89-year-old chronically ill female, but per conversation with family, it would be simply to allow them to visit/say goodbye/decide next step. 2. Altered mental status-likely secondary to her hypercapnia that is not improving (likely due to significant underlying chronic conditions that are slowly overwhelming her). CT brain without contrast 06/29/16 was negative for acute intracranial abnormality to suggest possible etiology of her altered mentation. 3. Influenza A on Tamiflu (outpatient PCR positive for influenza A, negative for H1 N1, negative for B)-she received a dose of Peramivir IV 06/28/16. 4. 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 This is demonstrated by her persistent/chronic right hemidiaphragm elevation, and overall deconditioning (immobility syndrome). NPPV and intubation as above in # 1. Primary team has appropriately started IV administration of steroid at stress doses. Recommend continuing duo nebs. 5. Pulmonary infiltrate on chest x-ray concerning for pneumonia (question for secondary bacterial infection following flu)-she did get her flu shot this year. No documentation of pneumococcal vaccine.-Most common cause of post-flu pneumonia is staph aureus (this is growing in her sputum (MRSA), but there is certainly the potential for contamination of the sample by upper respiratory tract colonization). She will continue in contact isolation for MRSA positivity. Pro-calcitonin is unremarkable 2. At this time, there is certainly consideration for stopping antibiotic regimen (MRSA coverage) as she is not presenting a significant picture of pulmonary bacterial infection. The infiltrate is likely/suspected to be build up of secretions as she is not able to clear appropriately. 6. UTI on UA, but Cx is negative-to be managed per primary team. 7. Hypothyroidism with laboratory evidence of over treatment-to be managed per primary team. 8. Chronic kidney disease with good renal function currently-to be managed per primary team Recommendations: Repeat ABG Will need to adjust BiPAP settings/consider intubation if hypercapnic while on BiPAP Empiric antibiotics as discussed with primary team Continue stress dose IV steroids Continue duo nebs Family contacted: they plan to be here by Sat at approx 1500 DVT prophylaxis: Heparin subcutaneous GI prophylaxis: None currently Patient is limited interventions: DO NOT RESUSCITATE. Intubate if necessary. Okay with medications and fluids. Time spent: 30 minutes King Ferris DO Jul 01, 2016 08:27
[2016-07-01] MEDS: Mupirocin 2% 22 Gm Ointment TOPICAL SCH ×2 (09:03→20:54)
[2016-07-01] MEDS: Cefepime Inj 2,000 MG in Dextrose 5% Minibag Plus 100 ML IV SCH (09:03)
[2016-07-01] MEDS: Heparin 5,000 Unit/mL Inj SUBQ SCH ×2 (09:03→20:54)
--- NOTE | 2016-07-01 10:37 | ABG ---
DateTimeAnalyzed 10:32:00 -_ pH ____7.348 - 7.350 7.450 pCO2 ___51.8__ -mmHg 35.0 45.0 pO2 124 -mmHg 69.0 116 HCO3- ___27.7__ -mmol/L 22.0 26.0 ABE ____2.1__ -mmol/L -2.0 2.0 tHb ____9.2__ -g/dL O2Hb ___97.5__ -% COHb ____1.0__ -% MetHb ____0.7__ -% sO2 ___99.2__ -% FIO2 ___21.0__ -% Drawn By as - Date/Time Notified____ 10:36:00 -_ Liter_Flow ____6.0__ -L/min Oxygen Device 1 __oxymask - Notified By AMS - Notified Whom de [place] - B 736 -mmHg tO2 ___12.8__ -Vol% Donnie test _Positive -
--- NOTE | 2016-07-01 14:30 | PCM.PNMED ---
Subjective Date of Service Jul 01, 2016 Dayana Gore is an 89-year-old female resident of a local [facility] ( [facility]) with past medical history of recently diagnosed influenza A (by PCR last week, on Tamiflu), documented COPD, and neuromuscular disease with associated neuropathy and myopathy who presented to the ER [facility] with reported complaint of altered mentation ( specifically decreased interactiveness with staff), and increasing O2 needs (79 % on room air, 96% on 5 L by nasal cannula at facility). Admitted for influenza A, acute hypercapnic and hypoxemic respiratory failure, possible pneumonia, and UTI. Hospital day 5. Overnight: Overnight patient alternated between BiPAP and nasal cannula. Today: Patient minimal responsive. Currently on BiPAP but alternating. Review of systems unobtainable due to mental status. Exam Vital Signs Vital Sign - Last Date Time Temp Pulse Resp B/P Pulse Ox O2 Delivery O2 Flow Rate FiO2 07/01/16 05:56 87 07/01/16 05:18 27 89 28 07/01/16 03:56 36.5 138/63 OxyMask 5.50 Intake and Output 06/30/16 06/30/16 07/01/16 Cumulative From/Thru 15:00 23:00 07:00 06/27/16 16:14 - 07/01/16 06:27 Intake Total 3363 ml 1499 ml 09859 ml Output Total 850 ml 600 ml 4220 ml Balance 2513 ml 899 ml 9121 ml Intake Oral 0 ml 0 ml 0 ml IV Total 3363 ml 1499 ml 85050 ml Output Urine Total 850 ml 600 ml 4220 ml # Bowel Movements 1 1 Exam General: Elderly female, agitated and pulling at BiPAP, does not follow commands. HEENT: Normocephalic, atraumatic. External ears without defect. Pupils equal, round, and reactive to light and accommodation. Anicteric sclerae, moist conjunctivae, and no lid lag. Oxymask in place. Copious oral secretions. Poor dentition. Neck: Supple with full range of motion. No jugular venous distension. No bruits. No lymphadenopathy or thyromegaly. Cardiovascular: Regular rate and rhythm with no murmurs, rubs, or gallops appreciated Pulmonary: Decreased air movement and faint wheezes bilaterally. Abdomen: Bowel tones present. Soft, nontender, nondistended. No hepatosplenomegaly or masses appreciated. Extremities: Right third toe amputation, cool lower extremities, no edema. Skin: Cool lower extremities. Decreased skin turgor. Sacral pressure ulcer. Neurological: Decreased strength in the left upper extremity. Psychiatric: Not alert and oriented. Lab and Diagnostics Result Diagram: 07/01/165 07/01/16324 Microbiology Influenza A positive X-Rays, CTs and MRIs CT BRAIN WITHOUT CONTRAST IMPRESSION: 1. No acute intracranial process. 2. Moderate to severe atrophy and chronic microvascular ischemic changes. Dictated by: Veronica Flynn M.D. on 06/29/2016 at 14:09 Approved by: Veronica Flynn M.D. on 06/29/2016 at 14:09 X-RAY CHEST ONE VIEW, PORTABLE IMPRESSION: Bibasilar atelectasis versus aspiration or pneumonia not significantly changed. Correlate clinically. Dictated by: Nader Mann RRA Interpreted: Cynthia Han MD on 06/29/2016 at 10:02 Transcribed by: HECTOR on 06/29/2016 at 10:02 Approved by: Cynthia Han MD, PhD on 06/29/2016 at 16:57 X-RAY CHEST ONE VIEW, PORTABLE IMPRESSION: Bibasilar opacities compatible with atelectasis versus pneumonia. Please correlate with clinical and laboratory data. Dictated by: Cynthia Han MD, PhD on 06/27/2016 at 16:44 Approved by: Cynthia Han MD, PhD on 06/27/2016 at 16:44 Additional Diagnostics DateTimeAnalyzed 10:32:00 -_ pH ____7.348 - 7.350 7.450 pCO2 ___51.8__ -mmHg 35.0 45.0 pO2 124 -mmHg 69.0 116 HCO3- ___27.7__ -mmol/L 22.0 26.0 Assessment & Plan Sofía is an 89-year-old female resident of a local [facility] facility ( [facility]) with past medical history of recently diagnosed influenza A (by PCR last week, on Tamiflu), documented COPD, and neuromuscular disease with associated neuropathy and myopathy who presented to the ER via EMS from the [facility] with reported complaint of altered mentation ( specifically decreased interactiveness with staff), and increasing O2 needs (79 % on room air, 96% on 5 L by nasal cannula at facility). Admitted for influenza A, acute hypercapnic and hypoxemic respiratory failure, possible pneumonia, and UTI. Hospital day 5. 1. Influenza A, present on admission, active. - Patient started on Tamiflu in the outpatient but is NPO after failed speech evaluation. - Peramivir 600 mg IV given on 06/28/16. - Patient did receive flu vaccine this year. - Treatment for respiratory failure as below. 2. Possible healthcare associated pneumonia, present on admission, active. - Chest x-ray 06/27/16 revealed bibasilar opacities compatible with atelectasis versus pneumonia. - On admission patient with WBC 16.0, respiratory failure, cough, and febrile. - Pro-calcitonin unremarkable at 0.11 on admission and 0.06 on 06/29. - Streptococcus pneumonia and legionella antigen negative. - Vancomycin and Zosyn given in the emergency department. - Antibiotics switched to vancomycin (06/27), cefepime (06/28), and azithromycin ( 06/28). - Consulted ID to determine if its appropriate to discontinue antibiotics as patient's WBC and procalcitonin have been unremarkable. - Treatment for respiratory failure as below. 3. Acute hypercapnic and hypoxemic respiratory failure, present on admission, active. - Initial ABG revealed a respiratory acidosis. ABGs initially improving but on 06/30 pH 7.135 with PCO2 of 89. - Patient alternating between BiPAP and oxymask. - DuoNEB every 6 hours while awake. - Pulmonology following. Appreciate time and expertise. 4. Urinary tract infection, present on admission, active. - UA with moderate bacteria, greater than 50 WBC, large leuk esterase, and positive nitrate. - Urine culture contaminated repeat sent. - Prior urinary tract infections 2013 grew Proteus that was sensitive to cefepime. - Antibiotics as an #2. 5. Altered mental status, present on admission, active. - Patient minimally responsive. Does not follow commands. - Likely secondary to infections and hypercapnia. - CT head showed no acute process. - We will continue to monitor. 6. Elevated troponin, present on admission, active. - Initial troponin on admission 0.026 elevated to 0.038 and most recent 0.022. - No EKG changes. - Patient not complaining of chest pain although hard to assess due to mentation. - Etiology likely thought to be demand ischemia. 7. Chronic steroid use, present on admission, ongoing. - Home regimen includes 5 mg of prednisone daily. - Solu-Cortef 50 mg every 6 hours for stress dose. 8. Hypothyroidism, present on admission, active. - TSH 0.355 suggesting possible overtreatment but difficult to assess in this acute setting. - Home dose of levothyroxine held this patient is NPO. - We will restart when appropriate. 9. Chronic kidney disease, present on admission, stable. - BUN and creatinine on admission 32 and 0.76. - We will avoid nephrotoxic agents as able. - Repeat BMP in the morning. 10. Sacral pressure ulcer, present on admission, active. - Wound care consulted. Does not appear infectious at this time. - We will continue to monitor. 11. Tachycardia, present on admission, chronic. - Home regimen includes diltiazem 120 mg daily. - Diltiazem hold at this time as patient is NPO. - We will start IV medication if patient becomes tachycardic. - Monitored on telemetry. Disposition: Prognosis guarded at this time. Patient resides at [facility] and will likely return at time of discharge. GI Prophylaxis: Not indicated VTE Prophylaxis: Sub-Q Heparin (Unfractionated) VTE Mechanical Devices: Intermittant Pneumatic CD Resuscitation Status: Limited Interventions (Intubate but DNR) Attending Statement The patient was seen and examined together with Resident/House-staff on 07/01/16 and I agree with the history, exam and plan as outlined in the note above. MALINDA CABAN DO Jul 01, 2016 06:41 Isra Hernández Jul 01, 2016 17:33
--- NOTE | 2016-07-01 15:13 | NUR ---
NUTRITION FOLLOW-UP Assess: 89 yo F w/ acute respiratory failure, AMS, and poss pneumonia. Pt is positive for influenza A. Pt remains NPO x3 days. Meeting to be had with family to discuss goals of care and whether or not nutrition support would be desired. Per notes, pt minimally responsive today. PMHx: Urinary incontinence, Tachycardia, COPD, Hypothyroidism, Neuropathy, Weakness, Dysphagia Skin cancer, Breast cancer s/p lumpectomy LABS: Reviewed. Glu 134, Ca 7.5, Prealbumin 10 MEDICATIONS: Reviewed. Prednisone, Tamiflu DIET: NPO x3 GI symptoms/stool: BM x1 07/01 Skin integrity: 2 stage 2 PUs on lt (1.1cm x1cm x0.1cm) and rt (2cm x2cm x0.1 cm) buttock ANTHROPOMETRICS: Current Wt: 72.8 kg kg BMI: 25.1 kg/m2 Admit Wt: 67.2 kg IBW: 61.4 kg Recent wt changes: None noted ESTIMATED NEEDS: Wounds (admit wt) Calories: 9014-7409 kcal/d (30-35 kcal/kg/d) Protein: 80-100 g/d (1.2-1.5 g/kg/d) Fluids: ~2000 ml/d (25-30 ml/kg/d) NUTRITION DIAGNOSIS: 1) Increased nutrient needs related to healing as evidenced by 2 stage 2 PUs.--PERSISTS 2) Inadequate oral intake related to dysphagia and weakness as evidenced by NPO status per ST.---PERSISTS INTERVENTION: 1) If family desires nutrition support, recommend Jevity 1.5 @ 10 ml/hr. Once pt tolerating, advance 10 ml q 6 hrs to goal rate of 60 ml/hr to provide 2070 kcal/d, 88 g/d protein, and 1288 ml/d H2O, meeting 100% of est needs. *If no IVF, flush w/ 120 ml q 3 hrs to provide 2010 ml/d H2O. 2) Diet per ST recommendations. MONITOR/EVALUATE: ST, Diet adv/aidee, Labs, Nutrition status, POC. Will follow per high nutrition risk guidelines.
--- NOTE | 2016-07-01 15:25 | CONS ---
[address] [address] CONSULTATION REPORT PATIENT: LEVI CHARLTON : 1925 MR#: [id number] ADMIT: 06/27/2016 JOB ID: [id number] DATE OF SERVICE: 07/01/2016 INFECTIOUS DISEASE CONSULT: I thank Dr. Hernández for this timely consult. REASON FOR CONSULTATION: Possible bacterial superinfection following influenza and/or possible UTI in a [facility] resident. HISTORY OF PRESENT ILLNESS: The patient is a most unfortunate 89-year-old woman who currently lives at a nearby nursing facility. She is confined there because of progressive weakness and immobility thought to be secondary to polyneuropathy, as well as profound muscular weakness. Her past medical history is notable for COPD, the neuromuscular disease, chronic renal insufficiency, coronary disease and a variety of other issues. She was transferred to this facility on June 27 because of increasing shortness of breath and CO2 retention. At the time she was transferred, she was hypoxic as well. It was discovered that the patient had influenza A, and she was treated appropriately with Tamiflu for the acute influenza. There was also a concern about the possibility of urinary tract infection, as she had pyuria, so appropriate cultures were done, and the patient was started not only on an anti-flu medication but as well on cefepime and vancomycin. 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 Additionally, the patient's urine grew a mixture of gram-negative rods with the pyuria, and there were issues regarding possible urinary tract infection. Infectious disease consult is requested at this time regarding the need for continued antibiotics and which one should be provided. The patient is a chronically ill woman who is at this point extremely weak and does not appear to be interactive in any way. She is lying in bed, moderately short of breath and with upper airway rattles easily audible from across the room. She does not seem to interact or answer any questions and so, no additional history can be obtained from her. PAST MEDICAL HISTORY: 1. COPD in a nonsmoker. 2. 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 3. Chronic right hemidiaphragm elevation. 4. Hypertension. 5. Chronic renal insufficiency. 6. Coronary artery disease. 7. Hypothyroidism. 8. Postmastectomy lymphedema syndrome. 9. Hyperlipidemia. 10. Gout. 11. History of breast cancer, status post breast surgery and radiation. 12. History of hip fracture and ground level falls. 13. Bilateral knee replacements. 14. Status post hysterectomy and bilateral salpingo-oophorectomy. 15. 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 Reason unknown. SOCIAL HISTORY: The patient lives in a long-term facility. The facility notes in the chart suggest she has never smoked. I doubt that she drinks as part of her lifestyle there. FAMILY HISTORY: Cannot be obtained. REVIEW OF SYSTEMS: No review of systems could be obtained from this obtunded elderly woman. PHYSICAL EXAMINATION: Reveals an elderly, chronically ill-appearing woman who is currently short of breath and appears uncomfortable but is not communicative. She is afebrile, as she has been since admission. She did reached 37.9 at one point but that was her only significant elevation of temperature. Pulse is currently around 100 and regular rhythm. The respiratory rate is in the mid 20s but she does have paradoxical respirations. Blood pressure 124/65. She is saturating 93% on 28% of inspired oxygen. The patient has temporal wasting. Her eyes are without conjunctival or scleral abnormalities. The oral cavity with no thrush or hairy leukoplakia but it is difficult to examine, as she does not open very far. The neck without obvious injury or adenopathy. Lungs: Breath sounds are notable for diffuse rattles and a lot of this is upper airway noise but in the lower regions one hears the occasional coarse rale. Cardiac tones distant, regular rate and rhythm. Abdomen without organomegaly or apparent ascites. The patient is wearing diapers. Does not have a Mitchell or suprapubic fullness. Her extremities are wasted. She has bilateral foot drop. Apparently, there are scars consistent with bilateral knee replacements. The skin is covered with a variety of what are called senile purpura or ecchymotic lesions. The skin is very thin and friable diffusely. No evidence for cellulitis, however. LABORATORIES: Include white count 6100, platelet count 236. Creatinine 0.72. Procalcitonin 0 on two occasions. Urinalysis with greater than 50 white cells on the 17th. Recent vancomycin trough 15. Micro includes negative admission blood cultures. Urine cultures currently growing a gram-negative robbie, with susceptibilities to follow. The sputum is growing MRSA. The Gram stain on that sputum showed moderate polys and some mixed carlos. The nasal swab is positive for MRSA as well. This MRSA is clindamycin resistant but sensitive to Bactrim, vancomycin and tetracycline. IMAGING: X-rays were reviewed on the view screen, and we carefully compared yesterday's to earlier in the hospital stay. she has bilateral subtle infiltrates, which could be atelectasis or pneumonia but are not overwhelming. IMPRESSION: This unfortunate elderly woman appears to be extremely chronically ill. She is, by all accounts, bedridden and [facility] at the [facility] as her usual state of health and now is worse with obtundation due to carbon dioxide retention and hypoxia. This afternoon she is rattling and has paradoxical respirations. I am concerned that the patient is approaching the end of her life on the basis of her many chronic problems. The question we are posed, does she have an ongoing bacterial infection? It is clear she had influenza, which has now been treated, but she is left with some subtle infiltrates bilaterally. Whether or not these represent methicillin-resistant Staphylococcus aureus is unclear but I doubt the patient has a methicillin-resistant Staphylococcus aureus pneumonia. She is not febrile, does not have an elevated white count and has negative procalcitonins. Her infiltrates on chest x-ray are also not impressive. As to whether she has a significant urinary tract infection, it is difficult to tell. We cannot ask her if she has symptoms but she does have pyuria in the urine which is growing an unknown gram-negative robbie. RECOMMENDATIONS: 1. I would discontinue the vancomycin and cefepime she is now receiving. 2. I would switch to ceftaroline as a single agent while we clarify her status including even her intubation status when her family arrives tomorrow. The ceftaroline will provide coverage for the MRSA, which I think is more likely colonizing than infecting her respiratory tree. In addition, I will provide some coverage for gram-negative rods in her urine and, of course, will have to wait susceptibilities and see which organism is present in the urine. 3. I would continue with the Bactroban that is being applied to the nares at this point. 4. Will continue to follow with you. 5. Though this is my first time meeting the patient, I would wonder if this patient should be transitioned to comfort care, as she appears to have a truly overwhelming set of problems and low quality of life.
[2016-07-01 17:54] LABS: COLOR,URINE STRAW (YELLOW)
[2016-07-01 17:55] LABS: APPEARANCE,URINE CLEAR (CLEAR,HAZY); OCCULT BLOOD,URINE LARGE (NEGATIVE); UROBILINOGEN,URINE NORMAL (NORMAL)
[2016-07-01] MEDS: fentaNYL-PF 50 mCg/mL 2 mL Inj IVPUSH PRN ×2 (17:58→21:52)
--- NOTE | 2016-07-01 19:45 | NUR ---
Progressively increased respiratory rate to 30-40 ranges with patient taking several shallow berthas followed by 1-2 deeper breaths. Marylinein's heart rate gradually continue to increase during the evening with short runs of SVT up to 130-140ranges- BP remained stable. This symptoms occurred during the times patient was on BIPAP and /or on oxy mask- MD was made aware about this changes during the shift. Patient was opening her eyes spontaneously but not to commends and was notable to follow commands. Patient requirer frequent oral and occasionally NT suctioning. During suctioning patient was trying to push away from the persona suctioning her. patient was given 12.5 mg of IV fentanyl to help with possible discomfort - no changes to HR and RR was noted immediately following med administration- MD was made aware. med coulter RN and hospitalist were alerted to this changes.
[2016-07-01] MEDS: Ceftaroline Inj 600 MG in Dextrose 5% 250 ML IV SCH (20:54)
[2016-07-02] VITALS (21 sets, daily range): BP systolic 87–132; BP diastolic 39–91; PULSE 77–155; RESP 16–43; O2SAT 93–96
--- NOTE | 2016-07-02 00:24 | ABG ---
DateTimeAnalyzed 00:18:55 -_ pH ____7.521 - 7.350 7.450 pCO2 ___34.0__ -mmHg 35.0 45.0 pO2 ___64.4__ -mmHg 70.0 100 HCO3- ___27.8__ -mmol/L 22.0 26.0 ABE ____4.5__ -mmol/L -2.0 2.0 tHb ____9.4__ -g/dL 12.0 18.0 O2Hb ___95.0__ -% 95.0 COHb ____1.1__ -% 1.5 MetHb ____0.6__ -% 0.4 1.5 sO2 ___96.6__ -% FIO2 ___21.0__ -% PEEP ____5.0__ -cmH2O Set_RR 16 -b/min Vt __419.0__ -L Drawn By MD - Date/Time Notified____ 00:23:00 -_ Spontaneous_RR 34 -b/min Oxygen Device 1 ____BIPAP - Notified By MD - Notified Whom DR SULLENBERGER - B 736 -mmHg K+ ____2.6__ -mmol/L tO2 ___12.6__ -Vol% Donnie test N/A -
[2016-07-02 00:40] LABS: BASOPHILS % (AUTO) 0.2 % (0-3); EOSINOPHILS % (AUTO) 0.2 % (0-5); MONOCYTES % (AUTO) 8.3 % (4-12); Mean Corpuscular Hemoglobin 33.8 pg (27.0-35.0); Mean Corpuscular Volume 104.8 fL (81-100); Platelet Count 217 bil/L (150-400)
[2016-07-02] MEDS: fentaNYL-PF 50 mCg/mL 2 mL Inj IVPUSH PRN (00:49)
[2016-07-02 01:02] LABS: Magnesium 1.8 mg/dL (1.6-2.6)
[2016-07-02] MEDS ORDERED: KCl 40 mEq/500 mL D5W(K 3 - 3.7 & Creat < 2) IV ONE (01:30)
[2016-07-02] MEDS: Diltiazem 125 mg/125 mL D5W IV SCH ×4 (02:32→19:53)
[2016-07-02] MEDS: Hydrocortisone 50 mg/mL 2 mL Inj IVPUSH SCH ×4 (02:59→20:08)
--- NOTE | 2016-07-02 04:30 | NUR ---
Changes to heart rate and respiratory effort. Per report from day shift patient was alternated between bipap and oxymask. Patient was being placed on bipap by RT when I came on shift. Patients lungs remained course, wet and diminished throughout. Patient is breathing 28-40 times a minute. Patient has a wet, non-productive cough. Oral and NT suctioning attempting by RT. Patients heart rate is tachycardia In the 110s to 130s. Patient will only open her eyes to loud verbal or physical stimuli. Patient appears to be in moderate distress. Provider Shai was contacted and informed about the patients increased respiratory effort and heart rate. Orders received for stat labs and a stat ABG. Patients potassium is low at 3.0. Potassium replacement started. No further orders at this time. Addendum: 07/02/16 at 0458 by ROXANNE ALVARADO RN [id number] Patient has started to have short burst of SVT with a heart rate into the 160's non-sustained. Provider contacted and orders received to start the patient on a diltizen drip. Patients blood pressure is stable and there is no change to respiratory status. Diltizem titrate up to 15ml an hour. No change is the patient heart rate. Provider informed and no new orders at this time. Instructed to observe the patient closely. Addendum: 07/02/16 at 0637 by ROXANNE ALVARADO RN Patient continued to have intermittent burst of SVT. Provider came to see the patient immediately and ordered Esmolol to be titrated to effect. Patient is currently running Esmolol at 10.8ml/hr, Cardizem at 15ml/hr and NS at 100ml/hr. Patients heart rate has responded well to the medications. Current rate is sinus rhythm at 96 with PAC's. Blood pressure stable in the 110's/120's systolic and O2 saturation on bipap are ranging in the mid 90's. Patient appears to be more much at rest.
[2016-07-02] MEDS ORDERED: Digoxin 0.25 mg/mL 2 mL Inj IV ONE (05:20)
[2016-07-02] MEDS: Esmolol 2,500 mg/250 mL NS 2,500,000 MCG in IV Premix 1 EACH IV SCH ×3 (06:12→22:22)
[2016-07-02] MEDS: Lactated Ringer's 1,000 ML IV SCH ×2 (07:00→17:00)
[2016-07-02] MEDS: Albuterol-Ipratropium 3 mL Inhalation Solution NEB SCH ×4 (08:01→20:50)
--- NOTE | 2016-07-02 09:03 | PCM.PNMED ---
Subjective Date of Service Jul 02, 2016 Dayana Gore is an 89-year-old female resident of a local group home facility ( [facility]) with past medical history of recently diagnosed influenza A (by PCR last week, on Tamiflu), documented COPD, and neuromuscular disease with associated neuropathy and myopathy who presented to the ER via EMS from the group [facility] with reported complaint of altered mentation ( specifically decreased interactiveness with staff), and increasing O2 needs (79 % on room air, 96% on 5 L by nasal cannula at facility). Admitted for influenza A, acute hypercapnic and hypoxemic respiratory failure, possible pneumonia, and UTI. Hospital day 6. Overnight: Overnight patient became tachycardiac initially a diltiazem drip was started but ineffective and switched to esmolol. Patient remained on BiPAP the majority of the night. Today: Patient minimal responsive this morning. Currently on BiPAP. Esmolol drip running and patients heart rate in the 90s to low 100s. Review of systems unobtainable due to mental status. Exam Vital Signs Vital Sign - Last Date Time Temp Pulse Resp B/P Pulse Ox O2 Delivery O2 Flow Rate FiO2 07/02/16 06:30 96 30 116/55 95 BiPAP 07/02/16 04:46 37.5 28 07/01/16 09:02 4.00 Intake and Output 07/01/16 07/01/16 07/02/16 Cumulative From/Thru 15:00 23:00 07:00 06/27/16 16:14 - 07/02/16 06:46 Intake Total 1370 ml 1184 ml 43160 ml Output Total 750 ml 1050 ml 6020 ml Balance 620 ml 134 ml 9875 ml Intake Oral 0 ml 0 ml 0 ml IV Total 1370 ml 1184 ml 45001 ml Output Urine Total 750 ml 1050 ml 6020 ml # Bowel Movements 2 3 Exam General: Elderly female, not following commands, on BiPAP. HEENT: Normocephalic, atraumatic. External ears without defect. Pupils equal, round, and reactive to light and accommodation. Anicteric sclerae, moist conjunctivae, and no lid lag. BiPAP in place. Copious oral secretions. Poor dentition. Neck: Supple with full range of motion. No jugular venous distension. No bruits. No lymphadenopathy or thyromegaly. Cardiovascular: Irregular rate and rhythm with no murmurs, rubs, or gallops appreciated Pulmonary: Decreased air movement and faint wheezes bilaterally. Abdomen: Bowel tones present. Soft, nontender, nondistended. No hepatosplenomegaly or masses appreciated. Extremities: Right third toe amputation, cool lower extremities, no edema. Skin: Sacral pressure ulcer. Neurological: Decreased strength in the left upper extremity. Psychiatric: Not alert and oriented. Lab and Diagnostics Result Diagram: 07/02/168 07/02/168 Microbiology Influenza A positive X-Rays, CTs and MRIs CT BRAIN WITHOUT CONTRAST IMPRESSION: 1. No acute intracranial process. 2. Moderate to severe atrophy and chronic microvascular ischemic changes. Dictated by: Veronica Flynn M.D. on 06/29/2016 at 14:09 Approved by: Veronica Flynn M.D. on 06/29/2016 at 14:09 X-RAY CHEST ONE VIEW, PORTABLE IMPRESSION: Bibasilar atelectasis versus aspiration or pneumonia not significantly changed. Correlate clinically. Dictated by: Nader Mann RRA Interpreted: Cynthia Han MD on 06/29/2016 at 10:02 Transcribed by: HECTOR on 06/29/2016 at 10:02 Approved by: Cynthia Han MD, PhD on 06/29/2016 at 16:57 X-RAY CHEST ONE VIEW, PORTABLE IMPRESSION: Bibasilar opacities compatible with atelectasis versus pneumonia. Please correlate with clinical and laboratory data. Dictated by: Cynthia Han MD, PhD on 06/27/2016 at 16:44 Approved by: Cynthia Han MD, PhD on 06/27/2016 at 16:44 Additional Diagnostics DateTimeAnalyzed 00:18:55 -_ pH ____7.521 - 7.350 7.450 pCO2 ___34.0__ -mmHg 35.0 45.0 pO2 ___64.4__ -mmHg 70.0 100 HCO3- ___27.8__ -mmol/L 22.0 26.0 Assessment & Plan Sofía is an 89-year-old female resident of a local group home facility ( [facility]) with past medical history of recently diagnosed influenza A (by PCR last week, on Tamiflu), documented COPD, and neuromuscular disease with associated neuropathy and myopathy who presented to the ER via EMS from the group home [facility] with reported complaint of altered mentation ( specifically decreased interactiveness with staff), and increasing O2 needs (79 % on room air, 96% on 5 L by nasal cannula at facility). Admitted for influenza A, acute hypercapnic and hypoxemic respiratory failure, possible pneumonia, and UTI. Hospital day 6. 1. Influenza A, present on admission, active. - Patient started on Tamiflu in the outpatient but is NPO after failed speech evaluation. - Peramivir 600 mg IV given on 06/28/16. - Patient did receive flu vaccine this year. - Treatment for respiratory failure as below. 2. Possible healthcare associated pneumonia, present on admission, active. - Chest x-ray 06/27/16 revealed bibasilar opacities compatible with atelectasis versus pneumonia. - On admission patient with WBC 16.0, respiratory failure, cough, and febrile. - Pro-calcitonin unremarkable at 0.11 on admission and 0.06 on 06/29. - Streptococcus pneumonia and legionella antigen negative. - Vancomycin and Zosyn given in the emergency department. - Antibiotics switched to vancomycin (06/27), cefepime (06/28), and azithromycin ( 06/28). Stopped 07/01. - Ceftaroline started 07/01 to cover for possible MRSA but this more likely to be colonizing than infecting per ID. - Consulted ID. Appreciate time and expertise. - Treatment for respiratory failure as below. 3. Acute hypercapnic and hypoxemic respiratory failure, present on admission, active. - Initial ABG revealed a respiratory acidosis - ABG from overnight as above. - Patient on BiPAP. - DuoNEB every 6 hours while awake. - Pulmonology following. Appreciate time and expertise. 4. Urinary tract infection, present on admission, active. - UA with moderate bacteria, greater than 50 WBC, large leuk esterase, and positive nitrate. - Urine culture contaminated repeat sent. - Prior urinary tract infections 2013 grew Proteus that was sensitive to cefepime. - Antibiotics as in #2. 5. Altered mental status, present on admission, active. - Patient minimally responsive. Does not follow commands. - Likely secondary to infections and hypercapnia. - CT head showed no acute process. - We will continue to monitor. 6. Elevated troponin, present on admission, active. - Initial troponin on admission 0.026 elevated to 0.038 and most recent 0.022. - No EKG changes. - Patient not complaining of chest pain although hard to assess due to mentation. - Etiology likely thought to be demand ischemia. 7. Chronic steroid use, present on admission, ongoing. - Home regimen includes 5 mg of prednisone daily. - Solu-Cortef 50 mg every 6 hours for stress dose. 8. Hypothyroidism, present on admission, active. - TSH 0.355 suggesting possible overtreatment but difficult to assess in this acute setting. - Home dose of levothyroxine held this patient is NPO. - We will restart when appropriate. 9. Chronic kidney disease, present on admission, stable. - BUN and creatinine on admission 32 and 0.76. - We will avoid nephrotoxic agents as able. - Repeat BMP in the morning. 10. Sacral pressure ulcer, present on admission, active. - Wound care consulted. Does not appear infectious at this time. - We will continue to monitor. 11. Tachycardia, present on admission, active. - Home regimen includes diltiazem 120 mg daily. - Diltiazem drip started without improvement in rate switched to Esmolol drip on 07/02. - Monitor on telemetry. High risk medications: IV Fentanyl 12.5 mcg Q2H PRN Disposition: Prognosis guarded at this time. Patient resides at [facility] and will likely return at time of discharge. GI Prophylaxis: Not indicated VTE Prophylaxis: Sub-Q Heparin (Unfractionated) VTE Mechanical Devices: Intermittant Pneumatic CD Resuscitation Status: Limited Interventions (Intubate but DNR) Attending Statement The patient was seen and examined together with Resident/House-staff on 07/02/16 and I agree with the history, exam and plan as outlined in the note above. MALINDA CABAN DO Jul 02, 2016 07:43 Isra Hernández Jul 02, 2016 17:34
[2016-07-02] MEDS: Heparin 5,000 Unit/mL Inj SUBQ SCH ×2 (09:07→20:08)
[2016-07-02] MEDS: Ceftaroline Inj 600 MG in Dextrose 5% 250 ML IV SCH ×2 (09:07→20:08)
[2016-07-02] MEDS: Mupirocin 2% 22 Gm Ointment TOPICAL SCH ×2 (09:08→20:08)
[2016-07-02] MEDS ORDERED: Magnesium Sulf 2 Gm/50mL Water 2 GM in IV Premix 1 EACH IV ONE (12:40)
--- NOTE | 2016-07-02 18:31 | NUR ---
Mentation: Pt nonverbal, occasionally attempts to mouth words, does not follow commands, does not move extremities, opens eyes to stimuli. Tele SR/ST 90s-130s, Esmolol gtt for rate control, currently at 100mcg. Pt's family flew in from [place], family meeting held with Pulmonology and Internal Medicine. Plan is for pt's to come visit tomorrow, code status changed to DNR/DNI. Care ongoing.
[2016-07-02] MEDS: 0.9% Sodium Chloride 1,000 ML IV SCH (22:35)
[2016-07-03] VITALS (13 sets, daily range): BP systolic 90–140; BP diastolic 49–92; PULSE 73–100; RESP 16–25; O2SAT 91–95
[2016-07-03] MEDS: Hydrocortisone 50 mg/mL 2 mL Inj IVPUSH SCH ×4 (01:56→20:20)
[2016-07-03 03:10] LABS: BASOPHILS % (AUTO) 0.2 % (0-3); EOSINOPHILS % (AUTO) 0 % (0-5); MONOCYTES % (AUTO) 13.1 % (4-12); Mean Corpuscular Hemoglobin 33.7 pg (27.0-35.0); Mean Corpuscular Volume 99.3 fL (81-100); NEUTROPHILS % (AUTO) 73.2 % (40-74); Platelet Count 120 bil/L (150-400)
[2016-07-03 03:25] LABS: Magnesium 1.8 mg/dL (1.6-2.6)
[2016-07-03] MEDS: Esmolol 2,500 mg/250 mL NS 2,500,000 MCG in IV Premix 1 EACH IV SCH ×3 (04:14→18:30)
--- NOTE | 2016-07-03 05:24 | NUR ---
Assumed care: Assumed care of pt. at 0300 from Brett Del Real, report received. Pt. non-verbal, however is alert and tracking nurse with eyes in room. Telemetry sinus rhythm, HR: 80's. VSS. Esmolol gtt infusing at 100mcg/kg/min. No overt signs or symptoms of distress. Oral care completed.
[2016-07-03] MEDS: Albuterol-Ipratropium 3 mL Inhalation Solution NEB SCH ×4 (07:15→20:01)
[2016-07-03] MEDS: 0.9% Sodium Chloride 1,000 ML IV SCH (08:48)
[2016-07-03] MEDS: Ceftaroline Inj 600 MG in Dextrose 5% 250 ML IV SCH ×2 (08:49→20:15)
[2016-07-03] MEDS: Heparin 5,000 Unit/mL Inj SUBQ SCH ×2 (08:51→20:15)
[2016-07-03] MEDS: Mupirocin 2% 22 Gm Ointment TOPICAL SCH ×2 (08:51→20:15)
[2016-07-03] MEDS: D5 0.45% NaCl + KCl 20 mEq/L 1,000 ML IV SCH ×2 (11:19→20:20)
--- NOTE | 2016-07-03 13:35 | PCM.PNMED ---
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 Admitted for influenza A, acute hypercapnic and hypoxemic respiratory failure, possible pneumonia, and UTI. Hospital day 7. Overnight: Overnight patient became tachycardiac and was placed back on Esmolol drip. She remained on BPAP overnight. Today: Patient more alert this morning and is able to track conversation but still not responding verbally herself. Continues to be on BPAP. Esmolol drip running and patients heart rate in the 90s to low 100s. Patient's son and [id number]-rd-noy at bedside. Review of systems unobtainable due to mental status. Exam Vital Signs Vital Sign - Last Date Time Temp Pulse Resp B/P Pulse Ox O2 Delivery O2 Flow Rate FiO2 07/03/16 12:13 89 16 119/74 93 28 07/03/16 12:11 36.3 BiPAP 07/01/16 09:02 4.00 Intake and Output 07/02/16 07/02/16 07/03/16 Cumulative From/Thru 15:00 23:00 07:00 06/27/16 16:14 - 07/03/16 05:40 Intake Total 1501 ml 1694 ml 35149 ml Output Total 1000 ml 1400 ml 8420 ml Balance 501 ml 294 ml 15989 ml Intake Oral 0 ml 0 ml 0 ml IV Total 1501 ml 1694 ml 67082 ml Output Urine Total 1000 ml 1400 ml 8420 ml # Bowel Movements 1 0 4 Exam General: Elderly female, not following commands, on BPAP. HEENT: Normocephalic, atraumatic. External ears without defect. Pupils equal, round, and reactive to light and accommodation. Anicteric sclerae, moist conjunctivae, and no lid lag. BiPAP in place. Copious oral secretions. Poor dentition. Neck: Supple with full range of motion. No jugular venous distension. No bruits. No lymphadenopathy or thyromegaly. Cardiovascular: Irregular rate and rhythm with no murmurs, rubs, or gallops appreciated Pulmonary: Decreased air movement with diffuse rales Abdomen: Bowel tones present. Soft, nontender, nondistended. No hepatosplenomegaly or masses appreciated. Extremities: Right third toe amputation, cool lower extremities, no edema. Skin: Sacral pressure ulcer. Neurological: Decreased strength in the left upper extremity. Psychiatric: Alert but not verbally responsive. IVs and Medications Medications Reviewed: Medications were reviewed in detail Lab and Diagnostics Result Diagram: 07/03/1624407/03/16244 Microbiology Influenza A positive X-Rays, CTs and MRIs CT BRAIN WITHOUT CONTRAST IMPRESSION: 1. No acute intracranial process. 2. Moderate to severe atrophy and chronic microvascular ischemic changes. Dictated by: Veronica Flynn M.D. on 06/29/2016 at 14:09 Approved by: Veronica Flynn M.D. on 06/29/2016 at 14:09 X-RAY CHEST ONE VIEW, PORTABLE IMPRESSION: Bibasilar atelectasis versus aspiration or pneumonia not significantly changed. Correlate clinically. Dictated by: Nader Mann [facility] Interpreted: Cynthia Han MD on 06/29/2016 at 10:02 Transcribed by: HECTOR on 06/29/2016 at 10:02 Approved by: Cynthia Han MD, PhD on 06/29/2016 at 16:57 X-RAY CHEST ONE VIEW, PORTABLE IMPRESSION: Bibasilar opacities compatible with atelectasis versus pneumonia. Please correlate with clinical and laboratory data. 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 Admitted for influenza A, acute hypercapnic and hypoxemic respiratory failure, possible pneumonia, and UTI. Hospital day 7. 1. Influenza A, present on admission, active. - Patient started on Tamiflu in the outpatient but is NPO after failed speech evaluation. - Peramivir 600 mg IV given on 06/28/16. - Patient did receive flu vaccine this year. - Treatment for respiratory failure as below. 2. Possible healthcare associated pneumonia, present on admission, active. - Chest x-ray 06/27/16 revealed bibasilar opacities compatible with atelectasis versus pneumonia. - On admission patient with WBC 16.0, had respiratory failure, cough, and was febrile. - Pro-calcitonin unremarkable at 0.11 on admission and 0.06 on 06/29. - Streptococcus pneumonia and legionella antigen negative. - Vancomycin and Zosyn given in the emergency department. - Antibiotics switched to vancomycin (06/27), cefepime (06/28), and azithromycin ( 06/28). Stopped 07/01. - Ceftaroline started 07/01 to cover for possible MRSA but this more likely to be colonizing than infecting per ID. - Consulted ID. Appreciate time and expertise. - Treatment for respiratory failure as below. 3. Acute hypercapnic and hypoxemic respiratory failure, present on admission, active. - Initial ABG revealed a respiratory acidosis - ABG from overnight as above. - Patient on BPAP. - DuoNEB every 6 hours while awake. - Pulmonology following. Appreciate time and expertise. - Patient doing better with nasal pillow instead of full face mask. - However patient unable to handle her secretions. 4. Urinary tract infection, present on admission, active. - UA with moderate bacteria, greater than 50 WBC, large leuk esterase, and positive nitrate. - Urine culture contaminated repeat sent. - Prior urinary tract infections 2013 grew Proteus that was sensitive to cefepime. - Antibiotics as in #2. 5. Altered mental status, present on admission, active. - Patient minimally responsive. Does not follow commands. - Likely secondary to infections and hypercapnia and underlying dementia. - CT head showed no acute process. - We will continue to monitor. 6. Tachycardia, present on admission, active. - Home regimen includes diltiazem 120 mg daily. - Diltiazem drip started without improvement in rate switched to Esmolol drip on 07/02. - Monitor on telemetry. 7. Elevated troponin, present on admission, active. - Initial troponin on admission 0.026 elevated to 0.038 and most recent 0.022. - No EKG changes. - Patient not complaining of chest pain although hard to assess due to mentation. - Etiology likely thought to be demand ischemia. 8. Chronic steroid use, present on admission, ongoing. - Home regimen includes 5 mg of prednisone daily. - Solu-Cortef 50 mg every 6 hours for stress dose tapering down to 25 mg Q6 9. Hypothyroidism, present on admission, active. - TSH 0.355 suggesting possible overtreatment but difficult to assess in this acute setting. - Home dose of levothyroxine held this patient is NPO. - We will restart when appropriate. 10. Chronic kidney disease, present on admission, stable. - BUN and creatinine on admission 32 and 0.76. - We will avoid nephrotoxic agents as able. - Repeat BMP in the morning. 11. Sacral pressure ulcer, present on admission, active. - Wound care consulted. Does not appear infectious at this time. - We will continue to monitor. High risk medications: IV Fentanyl 12.5 mcg Q2H PRN Disposition: Prognosis guarded at this time. Patient resides at [facility] and will likely return at time of discharge. Patient's son and hcfajsgt-ab-dsa are at bedside and are planning to bring the patient's in for a visit and they seem to understand that likely she is at the end of her journey. GI Prophylaxis: Not indicated VTE Prophylaxis: Sub-Q Heparin (Unfractionated) VTE Mechanical Devices: Intermittant Pneumatic CD Resuscitation Status: Limited Interventions (Intubate but DNR) Attending Statement The patient was seen and examined together with Resident/House-staff on 07/03/16 and I agree with the history, exam and plan as outlined in the note above. Diana Witt DO Jul 03, 2016 13:35 Isra Hernández Jul 03, 2016 17:12
--- NOTE | 2016-07-03 16:30 | NUR ---
Respiratory Trial off bipap to 3LNC Pre: Sat 92 HR 104 RR 24
--- NOTE | 2016-07-03 16:36 | PCM.PNMED ---
Subjective Date of Service Jul 03, 2016 Subjective Chronically ill 89 yo resident of assisted living admitted with sepsis, AMS, and hypoxemic-hypercarbic respiratory failure due to Influenza A. A UTI may have also contributed Since admission her hemodynamics have improved although she continues to have bursts of what appears to be A. fib followed by episodes of bradycardia. This is being treated with an Esmolol gtt. She has been bedridden for nearly 3 years due to unclear reasons including an uncharacterized neuropathy and myopathy for which she sees a community neurologist. She carries a diagnosis of "COPD" but is a never smoker and has no history of second hand exposure. She is on chronic oral steroids for a history of PMR and has been on stress dose steroids which are being tapered. Remains on NIPPV, now through nasal pillow mask. Dr. Bahena and I met with Ms. Caal's son and DIL yesterday to review status, plan and goals of care. She has been DNAR since admission but until yesterday, her family had requested that she be intubated "for several days" in case of refractory respiratory failure. After the meeting, in which I told them that intubation and ventilation would not alter the final outcome but only delay her , they agreed that she should NOT BE INTUBATED. I see that her resuscitation status was updated to reflect this decision last night. Today, she is more alert, looking around and appears to smile when looking towards her who is wheelchair bound but visiting today. We discussed her condition and her limited ability to recover from this illness. Her expresses understanding of the situation but wants to remain "hopeful" Exam Vital Signs Vital Sign - Last Date Time Temp Pulse Resp B/P Pulse Ox O2 Delivery O2 Flow Rate FiO2 07/03/16 15:49 84 23 109/58 92 28 07/03/16 12:11 36.3 BiPAP 07/01/16 09:02 4.00 Intake and Output 07/02/16 07/02/16 07/03/16 Cumulative From/Thru 15:00 23:00 07:00 06/27/16 16:14 - 07/03/16 05:40 Intake Total 1501 ml 1694 ml 38356 ml Output Total 1000 ml 1400 ml 8420 ml Balance 501 ml 294 ml 65414 ml Intake Oral 0 ml 0 ml 0 ml IV Total 1501 ml 1694 ml 81741 ml Output Urine Total 1000 ml 1400 ml 8420 ml # Bowel Movements 1 0 4 Exam Frail elderly woman on nasal BiPAP HR variable, 60 - 130, SpO2 92-92% Not examined Lab and Diagnostics Result Diagram: 07/03/1624407/03/16244 Microbiology Influenza A positive X-Rays, CTs and MRIs CT BRAIN WITHOUT CONTRAST IMPRESSION: 1. No acute intracranial process. 2. Moderate to severe atrophy and chronic microvascular ischemic changes. Dictated by: Veronica Flynn M.D. on 06/29/2016 at 14:09 Approved by: Veronica Flynn M.D. on 06/29/2016 at 14:09 X-RAY CHEST ONE VIEW, PORTABLE IMPRESSION: Bibasilar atelectasis versus aspiration or pneumonia not significantly changed. Correlate clinically. Dictated by: Nader Mann RRA Interpreted: Cynthia Han MD on 06/29/2016 at 10:02 Transcribed by: HECTOR on 06/29/2016 at 10:02 Approved by: Cynthia Han MD, PhD on 06/29/2016 at 16:57 X-RAY CHEST ONE VIEW, PORTABLE IMPRESSION: Bibasilar opacities compatible with atelectasis versus pneumonia. Please correlate with clinical and laboratory data. Dictated by: Cynthia Han MD, PhD on 06/27/2016 at 16:44 Approved by: Cynthia Han MD, PhD on 06/27/2016 at 16:44 Additional Diagnostics DateTimeAnalyzed 00:18:55 -_ pH ____7.521 - 7.350 7.450 pCO2 ___34.0__ -mmHg 35.0 45.0 pO2 ___64.4__ -mmHg 70.0 100 HCO3- ___27.8__ -mmol/L 22.0 26.0 Assessment & Plan IMP Acute on chronic hypoxemic-hypercarbic respiratory failure complicated by her advanced neuromuscular disease. Remains essentially BiPAP dependent. 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 GI Prophylaxis: Not indicated VTE Prophylaxis: Sub-Q Heparin (Unfractionated) VTE Mechanical Devices: Intermittant Pneumatic CD Resuscitation Status: Limited Interventions (Intubate but DNR) Kervin Ortega MD Jul 03, 2016 16:36
--- NOTE | 2016-07-03 18:21 | NUR ---
Respiratory Pt back on Bipap Sats stayed above 95%, Hr continued with irregularity No desat events or negative occurrences with being off bipap. Deuoderm placed under nasal pillow straps to protect cheeks. Rt informing RN about bridge of nose care.
--- NOTE | 2016-07-03 18:41 | NUR ---
Nose: Pt has had mepilex dressing over bridge of nose. RT removed dressing and pt has open area approx size of a angel. Wound cleaned, counselor aid notified. Care ongoing.
[2016-07-04] VITALS (16 sets, daily range): BP systolic 82–108; BP diastolic 44–84; PULSE 70–88; RESP 12–24; O2SAT 89–97
[2016-07-04] MEDS: Diltiazem 125 mg/125 mL D5W IV SCH ×2 (00:11)
[2016-07-04] MEDS: Hydrocortisone 50 mg/mL 2 mL Inj IVPUSH SCH ×4 (02:54→20:35)
[2016-07-04 03:48] LABS: BASOPHILS % (AUTO) 0.3 % (0-3); EOSINOPHILS % (AUTO) 0.1 % (0-5); MONOCYTES % (AUTO) 14.7 % (4-12); Mean Corpuscular Volume 98.7 fL (81-100); NEUTROPHILS % (AUTO) 77.4 % (40-74); Platelet Count 246 bil/L (150-400)
--- NOTE | 2016-07-04 04:59 | NUR ---
Respiratory Pt on nasal BiPAP at 28% FiO2, SpO2 93-95% throughout shift with occasional desaturations to 80s and spontaneous recovery. Esmolol gtt infusing at 100mcg/kg/min, HR 70s-90s throughout shift with intermittent spikes to 100s-140s. Q2H turns ongoing, pt refuses oral care beyond lip balm, nose maceration left open to air with improvement throughout night of less drainage and tissue scabbing over. Pt non-verbal beyond grunts or "uh-huh"s, tracks staff with eye contact and gives consent or denial for care. SBPs maintained 80s-90s.
[2016-07-04] MEDS ORDERED: KCl 40 mEq/100 mL (CENTRAL) 40 MEQ in IV Premix 1 EACH IV ONE (05:50)
[2016-07-04] MEDS ORDERED: KCl 40 mEq/500 mL D5W(K 3 - 3.7 & Creat < 2) IV ONE (05:55)
[2016-07-04] MEDS ORDERED: Magnesium Sulf 4 Gm/100 mL H2O 4 GM in IV Premix 1 EACH IV ONE (07:45)
[2016-07-04] MEDS: Albuterol-Ipratropium 3 mL Inhalation Solution NEB SCH ×4 (08:04→21:00)
[2016-07-04 08:14] LABS: Phosphorus 1.4 mg/dL (2.5-4.9)
--- NOTE | 2016-07-04 08:14 | NUR ---
Respiratory Trial off bipap. Pt on 3 LNC Sat 94%, HR 72, RR 22
[2016-07-04] MEDS: D5 0.45% NaCl + KCl 20 mEq/L 1,000 ML IV SCH ×2 (08:34→15:25)
[2016-07-04] MEDS: Mupirocin 2% 22 Gm Ointment TOPICAL SCH ×2 (08:35→20:35)
[2016-07-04] MEDS: Ceftaroline Inj 600 MG in Dextrose 5% 250 ML IV SCH (08:35)
[2016-07-04] MEDS: Heparin 5,000 Unit/mL Inj SUBQ SCH ×2 (08:35→20:29)
--- NOTE | 2016-07-04 09:22 | NUR ---
Palliative Care Palliative Care received order from Dr Bahena 07/04/16 to assist with goals of care. 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 She was admitted 06/27/16 for care of influenza A, acute hypercapnic and hypoxemic respiratory failure, possible pneumonia and UTI. Patient lives at [facility]. Demetrius "Prince" Stephane (son) [phone] Asha Calderón (DIL) [phone] Palliative Care to follow. Homa Dempsey
[2016-07-04] MEDS ORDERED: Potassium Phos (mMol) Inj 15 MMOL in Dextrose 5% 250 ML IV ONE (10:10)
--- NOTE | 2016-07-04 11:18 | PCM.PNMED ---
Subjective Date of Service Jul 04, 2016 Subjective Pulmonary critical care consultation progress note: Problems: Acute (possibly on chronic) hypercapnic, hypoxic respiratory failure requiring nearly continuous NPPV Influenza A (outpatient PCR positive for influenza A, negative for H1 N1, negative for B), treated with outpatient course of Tamiflu and one-time dose IV Peramivir. Mixed obstructive restrictive pulmonary disease (COPD without tobacco history ( I do not see any further workup), neuromuscular disease with neuropathy and myopathy) Pulmonary infiltrate on chest x-ray concerning for pneumonia (question for secondary bacterial infection following flu)-she did get her flu shot this year. No documentation of pneumococcal vaccine. Primary respiratory acidosis secondary to hypercapnia UTI with Proteus mirabilis Multiple electrolyte abnormalities Sinus tachycardia, with reports of tachybradycardia Immobility syndrome with significant deconditioning (requires a lift for transfers) Hypothyroidism with laboratory evidence of over treatment Chronic kidney disease with good renal function currently Subjective: Overnight she was she was on continuous noninvasive positive pressure ventilation. This AM, she is somewhat more interactive (i.e. tracking, appropriate responses to simple questions, obeying simple commands). She denies generalized pain, and denies difficulty breathing. She verbalizes no when asked if she has any questions. Comprehensive ROS otherwise not obtainable given patient's status. Exam Vital Signs Vital Sign - Last Date Time Temp Pulse Resp B/P Pulse Ox O2 Delivery O2 Flow Rate FiO2 07/04/16 08:54 70 21 82/53 95 Nasal Cannula 3.00 07/04/16 08:06 28 07/04/16 03:15 36.8 Intake and Output 07/03/16 07/03/16 07/04/16 Cumulative From/Thru 15:00 23:00 07:00 06/27/16 16:14 - 07/04/16 06:06 Intake Total 1988 ml 1686 ml 69084 ml Output Total 2000 ml 1000 ml 80959 ml Balance -12 ml 686 ml 17123 ml Intake Oral 0 ml 0 ml 0 ml IV Total 1988 ml 1686 ml 67740 ml Output Urine Total 2000 ml 1000 ml 89481 ml # Bowel Movements 4 Exam Gen.: Elderly female appropriate for stated age lying in hospital bed with NPPV mask (nasal pillow) in place. Does not appear to be in acute distress. HEENT: pupils are equal and reactive to light bilaterally, EOMi, mucous membranes are dry, poor dentition. Crusted, scabbing ulceration over the bridge of the nose approximately the size of a nickel. Chest: Relatively clear with scattered rales. Respirations are shallow and have a prolonged expiratory phase. Cardiovascular: Regular rate and rhythm with normal S1 and S2. I do not appreciate any murmurs. Radial pulses are 2+ bilaterally, posterior tibial pulses are 1+ bilaterally. 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 Neuro: She is tracking, is able to nod her head no to very simple/generalized review of systems questions, and verbalizes no when asked if she has questions. Able to vascular technician my hand on the right, but not the left. There is bilateral, minimal toe wiggling on command. Lines: Peripheral, Mitchell catheter. IVs and Medications IV Fluids Currently on standby (LR at 100 mL per hour) Medications Reviewed: Medications were reviewed in detail Medications Esmolol at 100 She currently has Solu-Cortef 25 mg IV every 6 hours Lab and Diagnostics 77.4% neutrophils magnesium 1.3, phosphorus 1.4, calcium 6.2 (corrects to 7). Micro- Blood culture drawn 06/27/16 15:30 is negative to date. Urine culture 06/28/16 shows Proteus mirabilis with resistance to ampicillin, cefazolin, ciprofloxacin, levofloxacin, nitrofurantoin, tetracycline. Repeat urine culture on 07/01/16 is negative for growth to date MRSA screen by nasal swab is positive Sputum 06/28/16 preliminary: MRSA. Legionella urine antigen negative, Streptococcus pneumoniae urine antigen negative Result Diagram: 07/04/16 0340 07/04/16 0500 X-Rays, CTs and MRIs No chest x-ray since 06/30/16 which showed bibasilar opacities suggestive of atelectasis. Recall noncontrast brain CT on 06/29/16 was negative for acute disease. Assessment & Plan 1. Acute (possibly on chronic) hypercapnic, hypoxic respiratory failure requiring NPPV-improved mentation and interaction this morning after being on BiPAP all night. Update from discussions between ICU team and primary team with family over the weekend: Patient is now DNR/DNI. We will continue to support her with noninvasive positive pressure ventilation according to wishes of the family/patient. There is high likelihood that she will require continuous and increasing amounts of noninvasive positive pressure ventilation indefinitely. Current BiPAP settings are 12/4 with an FiO2 of 0.28, set respiratory rate of 12 (patient breathing 20), and a tidal volume of 600-700 mL. 2. Altered mental status-improved today after being on NPPV overnight. Her acute mentation changes are likely secondary to her hypercapnia that is not improving (likely due to significant underlying chronic conditions that are slowly overwhelming her). CT brain without contrast 06/29/16 was negative for acute intracranial abnormality to suggest possible etiology of her altered mentation. 3. Influenza A (outpatient PCR positive for influenza A, negative for H1 N1, negative for B)-she received a dose of Peramivir IV 06/28/16. 4. 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 This is demonstrated by her persistent/chronic right hemidiaphragm elevation, and overall deconditioning (immobility syndrome). NPPV as above in #1. Her stress dose steroid has slowly been decreased over the course of this hospitalization, and is currently 25 mg IV every 6 hours. Consideration for further tapering to 25 mg IV every 8 hours tomorrow. 5. Pulmonary infiltrate on chest x-ray concerning for pneumonia (question for secondary bacterial infection following flu)-she did get her flu shot this year. No documentation of pneumococcal vaccine.-Most common cause of post-flu pneumonia is staph aureus (this is growing in her sputum (MRSA), but there is certainly the potential for contamination of the sample by upper respiratory tract colonization). She will continue in contact isolation for MRSA positivity. Pro-calcitonin is unremarkable 2. At this time, there is no strong clinical suspicion of pulmonary bacterial infection. The infiltrate is likely/suspected to be build up of secretions as she is not able to clear appropriately. Infectious disease is following, and defer antibiotic choices to them. 6. UTI with Proteus mirabilis-antibiotic choices per infectious disease and primary team. 7. Hypothyroidism with laboratory evidence of over treatment at time of admission-to be managed per primary team. 8. Chronic kidney disease with good renal function currently-to be managed per primary team 9. Hypophosphatemia and hypomagnesemia-discussed replacement options with primary team, and defer to them for management. Goal phosphate should be in normal range given her already significant underlying deconditioning and chronic myopathy. Goal magnesium should be 2 or greater with a concurrent potassium goal of 4 greater. 10. Sinus tachycardia with reports of tachybradycardia-currently on esmolol drip with good heart rate and pressure control. We will need to watch for low blood pressures as she is borderline currently. Recommendations: -Continue noninvasive positive pressure ventilation, with breaks to humidified air and/or oxygen supplementation if needed -We will continue to follow along with primary team, and palliative care team as management continues this hospitalization with consideration for future placement versus other wishes per family or patient. -Continue stress dose IV steroids with consideration for further tapering tomorrow as noted above -Continue duo nebs -Antibiotics per ID and primary team -Continue esmolol drip per primary team Discussed case with primary team this afternoon. Family has decided to go to full comfort care with goal of return [facility]EN[facility] to [facility], so Sofía can be with her . They are hopeful to discharge to [facility] tomorrow morning. With this in mind, pulmonary service will sign off at this time. Please do not hesitate to contact us again should further questions/concerns arise. CODE STATUS: DNR/DNI DVT prophylaxis: Heparin subcutaneous GI prophylaxis: None currently Time spent on direct patient care: 30 minutes Attending Statement The patient was seen and examined together with Dr. Ferris on 07/04/2016 and I agree with the history, exam and plan as outlined in the note above. King Ferris DO Jul 04, 2016 11:18 Todd Cannon MD Jul 23, 2016 13:26
--- NOTE | 2016-07-04 11:49 | NUR ---
JUWAN: Patient unable to sign for self and no family present. Asked DRY HOUSE ATTENDANT to follow up via phone.
--- NOTE | 2016-07-04 12:01 | PROG NOTE ---
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 INTERVAL HISTORY: Over the weekend, the patient has remained relatively stable. This morning, we find her basically immobile due to underlying polyneuropathy and polymyopathy, lying in her ICU bed. The patient appears awake but with eyes open and does track and focus, but does not respond, and it is unclear to me if this is a neuromuscular problem and she simply cannot speak or if there is some other cognitive issue ongoing. In any event, she does not appear to be in distress at least, but no more information can be derived from her. This case was discussed with the nursing staff. PHYSICAL EXAMINATION: Reveals a consistently afebrile woman. Temperature 36.8, pulse 70, respiratory rate 21, blood pressure is 82/53 today. She is saturating quite well on 2 L at this moment. Eyes without conjunctivitis. Oral cavity reveals truly terrible dentition with broken off, carious teeth easily visible. Lungs relatively clear with fair air flow bilaterally. She is certainly not drawing deep breaths but what she does have is fairly clear. The cardiac tones without murmur but they are very distant. The abdomen is soft and nontender. A Mitchell catheter is draining clear yellow urine. LABORATORIES: Include a white count of 12,000. Recall that this had fallen to normal after her admission, and on the , and , her white count was around 5000, and it is now doubled today. The diff though was fairly benign, 77% segs and 15% monocytes. Creatinine 0.59 today. Procalcitonin have been negative x2. Urine Legionella and pneumococcal antigens are negative. Sputum grew MRSA as was previously discussed, and urine grew Proteus. The MRSA grew from a sputum sample, as well as from a nasal swab. The MRSA from sputum was clindamycin resistant but susceptible to the other standard MRSA agents. The ceftaroline susceptibility is pending. The urine grew Proteus which was resistant to quinolones and first generation cephalosporins, but quite susceptible to ceftriaxone and, by extension, undoubtedly susceptible to ceftaroline. IMAGING: Included a chest x-ray from the which showed bibasilar opacities, pneumonia versus atelectasis. IMPRESSION: This unfortunate woman, who is bedridden and unable to communicate due to underlying neuromuscular disease, is admitted with shortness of breath and worsening total debilitation. At this point, it is unclear to me whether or not she has a post influenza methicillin-resistant Staphylococcus aureus (MRSA) respiratory tract infection or not, though I tend to doubt it based on her absence of fever, lack of systemic toxicity, and relatively normal procalcitonin values. Likewise, it is unclear whether not she has a urinary tract infection given that she has an indwelling Mitchell. Luckily, both the methicillin-resistant Staphylococcus aureus in the airway as well as the Proteus in the urine are likely susceptible to ceftaroline, and I think a short course of ceftaroline to try and clean up both these areas of potential infection is warranted. RECOMMENDATION: 1. Will continue with ceftaroline to complete a seven day course, which will take us through the or , and I placed this stop date in the computer. 2. I would continue with nasal Bactroban. 3. I understand there are discussions underway regarding possible comfort care, and this would certainly make a lot of sense from my limited perspective. If there are plans to move to comfort care, I would simply stop her current antibiotics and not check additional cultures.
--- NOTE | 2016-07-04 12:57 | NUR ---
Pt back on bipap
--- NOTE | 2016-07-04 14:21 | NUR ---
Wound Care Asked to check on pt for possible HAPU. Skin inspection reveals a 1.5 cm x 1.5 cm unstageable pressure injury at the bridge of nose consistent with usage of a breathing apparatus. Recommend thick duoderm placement to be changed PRN by nursing staff.
--- NOTE | 2016-07-04 14:37 | PCM.PNMED ---
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 Admitted for influenza A, acute hypercapnic and hypoxemic respiratory failure, possible pneumonia, and UTI. Hospital day 8. Overnight: Overnight patient remained on BPAP and Esmolol drip. Today: Patient more alert this morning and is able to track conversation and answer yes and no questions. Patient denies pain or shortness of breath. BPAP off to allow patient a break. MAPs in the low 60s Esmolol drip stopped. Palliative care discussed goals of care with family and family starting discussion about transitioning to comfort care. Review of systems unobtainable due to mental status. Exam Vital Signs Vital Sign - Last Date Time Temp Pulse Resp B/P Pulse Ox O2 Delivery O2 Flow Rate FiO2 07/04/16 04:04 73 20 95/53 93 28 07/04/16 03:15 36.8 BiPAP 07/01/16 09:02 4.00 Intake and Output 07/03/16 07/03/16 07/04/16 Cumulative From/Thru 15:00 23:00 07:00 06/27/16 16:14 - 07/04/16 06:06 Intake Total 1988 ml 1686 ml 70212 ml Output Total 2000 ml 1000 ml 23802 ml Balance -12 ml 686 ml 91450 ml Intake Oral 0 ml 0 ml 0 ml IV Total 1988 ml 1686 ml 64044 ml Output Urine Total 2000 ml 1000 ml 66962 ml # Bowel Movements 4 Exam General: Elderly female, following commands, responds to yes and no questions, on nasal cannula. HEENT: Normocephalic, atraumatic. External ears without defect. Pupils equal, round, and reactive to light and accommodation. Anicteric sclerae, moist conjunctivae, and no lid lag. Nasal cannula in place. Copious oral secretions. Poor dentition. Neck: Supple with full range of motion. No jugular venous distension. No bruits. No lymphadenopathy or thyromegaly. Cardiovascular: Irregular rate and rhythm with no murmurs, rubs, or gallops appreciated Pulmonary: Decreased air movement with diffuse rales Abdomen: Bowel tones present. Soft, nontender, nondistended. No hepatosplenomegaly or masses appreciated. Extremities: Right third toe amputation, cool lower extremities, no edema. Skin: Sacral pressure ulcer. Edematous upper extremities. Neurological: Decreased strength in the left upper extremity. Psychiatric: Alert but not verbally responsive. Lab and Diagnostics Result Diagram: 07/04/16 0340 07/04/16 0500 Microbiology Influenza A positive X-Rays, CTs and MRIs CT BRAIN WITHOUT CONTRAST IMPRESSION: 1. No acute intracranial process. 2. Moderate to severe atrophy and chronic microvascular ischemic changes. Dictated by: Veronica Flynn M.D. on 06/29/2016 at 14:09 Approved by: Veronica Flynn M.D. on 06/29/2016 at 14:09 X-RAY CHEST ONE VIEW, PORTABLE IMPRESSION: Bibasilar atelectasis versus aspiration or pneumonia not significantly changed. Correlate clinically. Dictated by: Nader Mann [facility] Interpreted: Cynthia Han MD on 06/29/2016 at 10:02 Transcribed by: HECTOR on 06/29/2016 at 10:02 Approved by: Cynthia Han MD, PhD on 06/29/2016 at 16:57 X-RAY CHEST ONE VIEW, PORTABLE IMPRESSION: Bibasilar opacities compatible with atelectasis versus pneumonia. Please correlate with clinical and laboratory data. 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 Admitted for influenza A, acute hypercapnic and hypoxemic respiratory failure, possible pneumonia, and UTI. Hospital day 8. 1. Influenza A, present on admission, active. - Patient started on Tamiflu in the outpatient but is NPO after failed speech evaluation. - Peramivir 600 mg IV given on 06/28/16. - Patient did receive flu vaccine this year. - Treatment for respiratory failure as below. 2. Possible healthcare associated pneumonia, present on admission, active. - Chest x-ray 06/27/16 revealed bibasilar opacities compatible with atelectasis versus pneumonia. - On admission patient with WBC 16.0, had respiratory failure, cough, and was febrile. - Pro-calcitonin unremarkable at 0.11 on admission and 0.06 on 06/29. - Streptococcus pneumonia and legionella antigen negative. - Vancomycin and Zosyn given in the emergency department. - Antibiotics switched to vancomycin (06/27), cefepime (06/28), and azithromycin ( 06/28). Stopped 07/01. - Ceftaroline started 07/01 to cover for possible MRSA but this more likely to be colonizing than infecting per ID. - Consulted ID. Appreciate time and expertise. - Treatment for respiratory failure as below. 3. Acute hypercapnic and hypoxemic respiratory failure, present on admission, active. - Initial ABG revealed a respiratory acidosis - ABG from overnight as above. - Patient on BPAP the majority but with intermittent breaks. - DuoNEB every 6 hours while awake. - Pulmonology following. Appreciate time and expertise. - Patient doing better with nasal pillow instead of full face mask. - However patient unable to handle her secretions. 4. Urinary tract infection, present on admission, active. - UA with moderate bacteria, greater than 50 WBC, large leuk esterase, and positive nitrate. - Urine culture contaminated repeat sent. - Prior urinary tract infections 2014 grew Proteus. - Antibiotics as in #2. 5. Altered mental status, present on admission, active. - Patient minimally responsive. Follows some commands. - Likely secondary to infections and hypercapnia and underlying dementia. - CT head showed no acute process. - We will continue to monitor. 6. Tachycardia, present on admission, active. - Home regimen includes diltiazem 120 mg daily. - Esmolol drip on 07/02 stopped this am due to hypotension. - Monitor on telemetry. 7. Elevated troponin, present on admission, active. - Initial troponin on admission 0.026 elevated to 0.038 and most recent 0.022. - No EKG changes. - Patient not complaining of chest pain although hard to assess due to mentation. - Etiology likely thought to be demand ischemia. 8. Chronic steroid use, present on admission, ongoing. - Home regimen includes 5 mg of prednisone daily. - Solu-Cortef 50 mg every 6 hours for stress dose tapering down to 25 mg Q6 9. Hypothyroidism, present on admission, active. - TSH 0.355 suggesting possible overtreatment but difficult to assess in this acute setting. - Home dose of levothyroxine held this patient is NPO. - We will restart when appropriate. 10. Chronic kidney disease, present on admission, stable. - BUN and creatinine on admission 32 and 0.76. - We will avoid nephrotoxic agents as able. - Repeat BMP in the morning. 11. Sacral pressure ulcer, present on admission, active. - Wound care consulted. Does not appear infectious at this time. - We will continue to monitor. High risk medications: IV Fentanyl 12.5 mcg Q2H PRN Disposition: Prognosis guarded at this time. Patient resides at [facility] and will likely return at time of discharge. Patient's son and [id number] are at bedside and discussion is ongoing about comfort care and transitioning back to [facility] to be with . GI Prophylaxis: Not indicated VTE Prophylaxis: Sub-Q Heparin (Unfractionated) VTE Mechanical Devices: Intermittant Pneumatic CD Resuscitation Status: DNR/DNI:Do Not Resuscitate/Intubate Attending Statement The patient was seen and examined together with Dr. Caban on 07/04/2016 and I agree with the history, exam and plan as outlined in the note above. . MALINDA CABAN DO Jul 04, 2016 07:55 Charlie Sheldon MD Jul 09, 2016 14:44
--- NOTE | 2016-07-04 14:48 | NUR ---
Pt off bipap Pt has better saturation with 3 LNC than on bipap
--- NOTE | 2016-07-04 15:20 | NUR ---
NUTRITION FOLLOW-UP Assess: 89 YO F with acute respiratory failure, AMS, and poss pneumonia. Pt is positive for influenza A. Pt remains NPO x 7 days. Pt off BiPAP per notes, speech therapy re-ordered. Palliative consult ordered. PMHx: Urinary incontinence, Tachycardia, COPD, Hypothyroidism, Neuropathy, Weakness, Dysphagia Skin cancer, Breast cancer s/p lumpectomy LABS: Reviewed. Na 123, K+ 3.0, Glu 173, Ca 6.2, Phos 1.4 (07/02) Alb 2.9 MEDICATIONS: Reviewed. Solu-Cortef, Fentanyl. DIET: NPO x 7 days. GI: BM x 1 (07/02) SKIN: 2 stage 2 PUs on lt and rt buttocks, unstageable pressure injury on bridge of nose. ANTHROPOMETRICS: Current Wt: 72.8 kg, BMI: 25.9 kg/m2, Admit Wt: 67.2 kg, IBW: 61.4 kg, Recent wt changes: None noted ESTIMATED NEEDS: Wounds (admit wt) Calories: 5395-8160 kcal/day (30-35 kcal/kg BW) Protein: 80-100 g/day (1.2-1.5 g/kg BW) Fluids: ~2000 ml/day (25-30 ml/kg/d) NUTRITION DIAGNOSIS: 1) Increased nutrient needs related to healing as evidenced by 2 stage 2 PUs.--PERSISTS 2) Inadequate oral intake related to dysphagia and weakness as evidenced by NPO status per ST.---PERSISTS INTERVENTION: 1) Will await plan of care decisions. If family desires nutrition support, recommend Jevity 1.5 @ 10 ml/hr. Once pt tolerating, advance 10 ml q 6 hrs to goal rate of 60 ml/hr to provide 2070 kcal/d, 88 g/d protein, and 1288 ml/d H2O, meeting 100% of est needs. *If no IVF, flush w/ 120 ml q 3 hrs to provide 2010 ml/d H2O. 2) Diet advance per ST recommendations. MONITOR/EVALUATE: ST, diet advance vs nutrition support, POC, NPO status, labs, nutrition status, POC. Follow per high nutrition risk guidelines.
--- NOTE | 2016-07-04 15:35 | PCM.CONPAL ---
Date of Service Jul 04, 2016 Date of Hospital Admission: Jun 27, 2016 at 16:24 Date of Palliative Consult: Jul 04, 2016 Requesting Provider: MALINDA CABAN DO Reason Palliative Care Consult: Goals of Care Discussion Reason for Consultation Initiate a goals of care discussion and completion of a new POLST with the patient's son Aurelio Calderón and his Asha Calderón. Hospital Unit @time of consult: Progressive Care Palliative Care Recommendation Summary of palliative recommendations: Palliative Plan: Family Care Team Meeting with son/BASSAM Calderón and his Asha Calderón on 07/04/2016 at 11:00, where the palliative team with discuss background information on the patient as well as begin a goals of care discussion and completion of a new POLST. From the Critical Care Progress note of Dr. Ortega the patient has been moved to DNR/DNI, this was reiterated on the POLST completed today. The family has decided to start comfort care measures with the goal to return patient to [facility] to see her Vincenzo. -Symptom management (Pain/other) : currently managed by the primary [facility] team -DPOA/Advanced Directives/POLST - DPOA - Son Demetrius Calderón (Rick) - new POLST completed 07/04/2016, previous POLST signed in 2013 - Comfort Care orders with ok to finish antibiotics -Family/emotional support - Family Care Team Meeting with son/BASSAM Morrison and his Asah on 2016 at 11:00 - Palliative Team present Sada Schneider MD and Alexx Mims DO The discussion was started by Alexx Mims asking Prince and Asha to give any background history on [facility]. Prince states that he understands his mother has poor function in multiple organ systems including her heart, lungs, kidneys, and brain. He states that his understanding is that she is near the end of life with likely less than 3 months to live, which was explained by multiple doctors including Dr. Ortega of the CCU yesterday. Prince explained that he had not seen Sofía over the last year and his recent interactions are typically conference calls with Sofía and [facility] and [facility] staff. Sofía had been bedbound for the last two years in [facility], which is reported as a gradual transition, and there was not a specific incident that caused her to become debilitated. Asha explained that Sofía broke her hip in and was sent to [facility] where she was able to regain the ability to walk with a walker before being sent to [facility] in [facility]. Asha states that Sofía was not social at baseline and typically would not want to leave her room in [facility]. Asha stated that Sofía was not interested in participating in exercise classes, and was only happy to sit and watch TV with Vincezno. Prince stated that she has had a progressive decline with her dementia over the last two years. As recently as his Prince's last knee replacement this fall, Sofía was able to initiate some conversation, asking questions about the operation and rehabilitation. Last year when Prince last saw his mother she was entirely bed bound and unable to care for herself, relying almost entirely on staff, except to feed herself. He states that she was quiet and would typically only give short one word answers, she also became quite confused in the evening. Next the palliative team asked Prince the DPOA and Asha to completed a new POLST to help initiate a new goals of care discussion. Prince mentioned that Sofía and Vincenzo had not wanted to discuss end of life stating that they had yet to make burial arrangements. Prince knows that Sofía would like to be buried in [place]. The previous POLST was signed in 2013 which was DNR with limited interventions. In discussing the POLST Prince agreed that Sofía would want to be DNR still, however he stated that he would need a little time with his to discuss what Sofía would want done moving forward. Alexx Mims at that time asked Prince, if Sofía was her old self and able to step out of her body and see her current state what would she want done. The Palliative team pointed out the back of the POLST and the feeding options as well as the antibiotic options explaining each, most notably explaining that tube feeding a demented patient is typically not beneficial for quality of life or quantity of life. Family asked for private time to talk with each other before signing a new POLST The Calderón's took approximately 15 minutes to discuss the POLST privately before they called the Palliative team back into the consultation room. Prince and Asha chose to make Sofía comfort care measures but they want her to finish her current course of antibiotics, with no future antibiotic usage and no tube feedings. The POLST was then signed and dated by Prince and Dr. Mims. Prince then stated that Sofía's goal would be to return to [facility], likely with Hospice following for comfort care measures, and see and be with Vincenzo before she expires. The Calderón's thanked the Palliative Team for their time. The palliative team explained all questions and relayed all the above information to the primary medical team, social workers and infectious disease. -Spiritual support - Not addressed at this time Patient Goals: 1. Return to [facility] to be with her Vincenzo. 2. Remain comfortable with likely Hospice consulted from [facility] pending social workers arrangement 3. Complete current course of antibiotics in accordance with comfort care orders given likely dysuria from UTI. Additional Medical Diagnoses with primary management by Hospitalist team include : Proteus UTI MRSA PNA Influenza A COPD steroid dependent Atrial Fibrillation with RVR Dementia Problems: End of Life Preferences Prince knows that Sofía would like to be buried in [place], but no arrangements have been made. Goals of Care 1. Return to [facility] to be with her Vincenzo. 2. Remain comfortable with likely Hospice consulted from [facility] pending social workers arrangement 3. Complete current course of antibiotics in accordance with comfort care orders given likely dysuria from UTI. Disposition Likely to be discharged back to [facility] not currently certain if this will be on a comfort pathway or if patient will require prison with IV antibiotics. Hospice options with be weighted with [facility] prior to initiating consultation. Resuscitation Status Resuscitation Status: DNR/DNI:Do Not Resuscitate/Intubate (recently made DNR/ DNI by CCU in accordance with DPOA ) Additional Information Comfort care measures only, including the current course of antibiotics but no further antibiotics or escalation in care. POLST Updates/Changes Previous POLST?: Yes (signed in 2013) POLST Last Review Date: Jul 04, 2016 Antibiotics: No Antibiotics (ok to finish the current course of antibiotics) Artificially Admin Nutrition: No Artifical Nutrition by Tube POLST Discussed with: Health Care Agent (DPOAHC) POLST Review Outcome: New Form Completed . Advanced Care Planning Address: POLST, Comfort care Pain: Mild Symptom management: Dyspnea, Delirium Pt History History of Present Illness From the Critical Care Consult note of King Ferris DO "Sofía is an 89-year-old female resident of a local prison facility ( 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 According to documentation from the nursing facility in the paper chart there were complaints of increased cough (for which she received guaifenesin when necessary), no documentation indicating improvement or worsening once starting Tamiflu. According to outpatient documentation she was afebrile, and was not demonstrating any tachycardia, tachypnea, or hypotension. I visited with her today while she is currently on NPPV. She is a poor historian, and I am not able to get much information out of her. She does report some discomfort, but is not able to localize. She denies having a Mitchell catheter at the prison facility. She reports that she is not breathing well, but is not able to specify. I am not able to get any other meaningful communication out of her. Comprehensive ROS otherwise not obtainable." Hospital Course: 89yoF presented with acute respiratory failure secondary to influenza A and possible MRSA pneumonia with concomitant COPD, as well as Proteus UTI secondary to urinary incontinence and oliguria with stage IV chronic kidney disease and dementia. The patient has been treated with high flow nasal canula and BIPAP as well as Tamiflu and is currently treating the MRSA PNA and Proteus UTI with Ceftaroline IV. The patient continues to remain on Esmolol GTT for tachycardia with plans to convert the patient to a Diltiazem drip and then back to her oral diltiazem. Palliative Plan: Have a Family Care Team Meeting with son/BASSAM Morrison on 2016 at 11:00, where the palliative team with discuss background information on the patient as well as begin a goals of care discussion. From the Critical Care Progress note of Dr. Ortega the patient has been moved to DNR/DNI. Past Medical History Significant PMH Noted: COPD (currently on when necessary DuoNeb, and 5 mg daily prednisone) * PFTs from 06/01/12 show: FVC 1.37 L (47% predicted), FEV1 0.94 L (44% predicted), FEV1/FVC 69% (predicted 73%), TLC 7.42 L (136% predicted), RV 5.88 L (249% predicted), DLCO 54% predicted (corrected 55% predicted, adjusted for alveolar volume 92% predicted). 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 avina of neurology with regular Botox injections for left upper extremity spasticity. * Chest x-rays going back several years demonstrate persistent right hemidiaphragm elevation. Hypertension, essential tachycardia Chronic kidney disease, stage IV. Has been following with Dr. Palomo of nephrology. Baseline creatinines have been 0.8. CAD (NSTEMI 07/2012) * Cardiac cath in 07/30/12: Showed 60% mid LAD lesion. Medical management was recommended. * Most recent echo 07/04/13: Normal LV size, wall thickness, wall motion, and systolic function with an EF of 60-65%. Summary documentation of stage I diastolic dysfunction. No significant valvular abnormalities noted. Hypothyroidism Lactose intolerance Postmastectomy lymphedema syndrome (I do not see anything indicated in her history of a documented mastectomy) Unspecified urinary incontinence Mechanical ground-level fall in 07/2012-distal clavicle fracture to the left side Hypercholesterolemia Gout History of skin cancer (unspecified) History of breast cancer, status post lumpectomy and radiation therapy History of hip fracture Surgical History Tonsils and adenoids Appendectomy Bladder suspension Lumpectomy Cataract surgery Sinus surgery Hysterectomy with oophorectomy Bilateral total knee replacements Right shoulder surgery Right third toe amputation in 2001 Social History Occupation: retired Social Support: Demetrius Calderón and Asha Calderón Living Situation: [facility] with her ADLs ADL Patient Status: Baseline ADL Ambulation: Totally Bed ADL Dressing: Total care ADL Feeding: Total care ADL Hygene/bathing: Total care ADL Transfers: Total care FAST Scale FAST Score: 7-D POLST at Time of Admission Previous POLST?: Yes (signed in 2013) POLST Last Review Date: Jul 04, 2016 Cardiopulmonary Resuscitation: DNR: Do Not Attempt Resuscitation Medical Interventions: Comfort Measures Only Antibiotics: No Antibiotics (OK to finish the current course of antibiotics) Artificially Admin Nutrition: No Artifical Nutrition by Tube POLST Discussed with: Health Care Agent (DPOAHC) POLST Status: Changed-see new form Allergy Allergies Reviewed: Yes Medications Current Medications: Current Medications Sodium Chloride 1,000 ml @ 100 mls/hr Q10H IV Last administered on 07/03/16 08 :48; Admin Dose 100 MLS/HR; Start 07/02/16 at 22:35; Stop 07/03/16 at 09:24; Status DC Potassium Chloride/Dextrose/ Sod Cl 1,000 ml @ 100 mls/hr Q10H IV Last administered on 07/04/16 08:34; Admin Dose 100 MLS/HR; Start 07/03/16 at 09:25 Hydrocortisone Sodium Succinate 25 mg Q6 IVPUSH Last administered on 07/04/16 08:35; Admin Dose 25 MG; Start 07/03/16 at 14:30 Scheduled Acetaminophen (Acetaminophen) 325 Mg Capsule 650 MG PO TID Allopurinol (Allopurinol) 100 Mg Tablet 100 MG PO DAILY Alpha Lipoic Acid (Alpha Lipoic Acid) 300 Mg Capsule 600 MG PO DAILY Calcium Carbonate (Tums) 500 Mg Tab.chew 500 MG PO DAILY Cetirizine HCl (Zyrtec) 10 Mg Capsule 10 MG PO DAILY Cholecalciferol (Vitamin D3) (Vitamin D3) 2,000 Unit Tablet 2,000 UNIT PO DAILY Cranberry Fruit Concentrate (Cranberry) 450 Mg Capsule 900 MG PO DAILY Diltiazem ER (Cardizem CD) 120 Mg Cap.er.24h 120 MG PO DAILY Docusate Sodium (Docusate Sodium) 250 Mg Capsule 250 MG PO DAILY Fluticasone Propionate (Flonase Allergy Relief) 50 Mcg/Actuation Renick.susp 1 SPRAY NS QPM Levothyroxine (Levothyroxine) 100 Mcg Tablet 100 MCG PO DAILY Multivitamin (Once Daily) 1 Each Tablet 1 EACH PO DAILY Oseltamivir Phosphate (Tamiflu) 75 Mg Capsule 75 MG PO BID x 8 doses Prednisone (PredniSONE) 5 Mg Tab 5 MG PO DAILY Sennosides (Senna) 8.6 Mg Tablet 17.2 MG PO DAILY Simvastatin (Simvastatin) 10 Mg Tablet 10 MG PO HS Scheduled PRN Acetaminophen (Acetaminophen) 325 Mg Capsule 650 MG PO q4 hours PRN PRN For Pain Bisacodyl (Dulcolax) 5 Mg Tablet.dr 5 MG PO BID PRN PRN For Constipation Guaifenesin/Codeine Phosphate (Guaifen-Codeine 100-10 mg/5 ml) 120 Ml Liquid 10 ML PO q6 hours PRN PRN For Cough Ipratropium/Albuterol Sulfate (Iprat-Albut 0.5-3(2.5) mg/3 mL Inhalant Soln) 3 Ml Ampul.neb 3 ML IH Q6 PRN PRN For Shortness of Breath Objective Findings Exam Vital Sign - Last Date Time Temp Pulse Resp B/P Pulse Ox O2 Delivery O2 Flow Rate FiO2 07/04/16 08:54 70 21 82/53 95 Nasal Cannula 3.00 07/04/16 08:06 28 07/04/16 03:15 36.8 Intake and Output 07/03/16 07/03/16 07/04/16 Cumulative From/Thru 15:00 23:00 07:00 06/27/16 16:14 - 07/04/16 06:06 Intake Total 1988 ml 1686 ml 89131 ml Output Total 2000 ml 1000 ml 56991 ml Balance -12 ml 686 ml 39358 ml Intake Oral 0 ml 0 ml 0 ml IV Total 1988 ml 1686 ml 68922 ml Output Urine Total 2000 ml 1000 ml 77995 ml # Bowel Movements 4 Objective 89yoF alert nonverbal and tracking with her eyes lying in bed in mild respiratory distress breathing rapid and somewhat shallow through her mouth using her accessory muscles of her abdomen. General: Minimally responsive, Mild distress HEENT: PERRLA, Scleral Anicteric Heart: Dysrhythmia Present Lungs: Diminished, Coarse, Tachypneic, Other (use of accessory muscles) Abdomen: Bowel Tones x4 (hypoactive), Soft (patient is using diaphram and abdominal muscles to breath), Non Tender (no sign on pain on palpation however patient was minimally responsive and not following commands) Neuro: Spontaneous Eye Opening Extremities: Pulses Palpable x4, Warm, Edema (chronic upper extremity edema on right) Lab/Diagnostics Lab and Imaging results reviewed in detail in EMR. Time spent Total time 70 minutes; >50% face to face with patient and/or family, providing counselling regarding plans and recommendations, and in care coordination with his/her medical teams. I also spent an additional 65 minutes counseling for advanced care planning with the the patients family who is the surrogate decision maker. Attending Statement I was immediately available and directly present during resident physician's exam, interview, counseling with family and we discussed PC management recommendations together, then he coordinated care with Attending team and CM. I agree with all the information documented in his note above. ALEXX MIMS DO Jul 04, 2016 10:47 Sada Schneider MD Jul 04, 2016 15:47
[2016-07-04] MEDS ORDERED: Furosemide 10 mg/mL 4 mL Inj IVPUSH ONE (15:55)
--- NOTE | 2016-07-04 17:41 | NUR ---
Activity/wound care Pt activity at baseline per report, unable to turn self in bed and unable to sit up. Tolerating Q2hr turns however desating when attempted to have pt seating up and when pt is on her left side. Pressure ulcer stage 2 per wound care on sacrum, Mepilex changed. Bilateral arms swollen red, right forearm weeping . Right arm marked. MD aware. No new orders at this time.
--- NOTE | 2016-07-04 22:54 | NUR ---
2300 Pt transfer to #[id number] from #2013. Tele discontinued. Pt alert. Nod no to pain. No other answers. 3L NC, haji draining bora urine, and 2 peripheral IVs. Swollen, red, purplish, bruise, fragile, weeping BUEs. Repositioning, oral care given. Mepilex buttock and sacral area along w/ calmoseptine. Receive K/phos rider. AM labs. D51/2NS w/ 20K at 50ml/hr per day shift report.
--- NOTE | 2016-07-05 01:12 | NUR ---
transfer pt arrived to [facility] room 1017 at 2300. she is alert but did not respond to questions. nurse asked if she could blink to answer questions to which the pt then blinked multiple times but when nurse asked pt to blink in response to questions she did not blink or respond at all. she has 02 on 4L via NC. does not appear to be in any distress and has been sleeping since she arrived. care continues
[2016-07-05] MEDS: D5 0.45% NaCl + KCl 20 mEq/L 1,000 ML IV SCH (01:25)
[2016-07-05] MEDS: Esmolol 2,500 mg/250 mL NS 2,500,000 MCG in IV Premix 1 EACH IV SCH (02:08)
[2016-07-05] MEDS: Hydrocortisone 50 mg/mL 2 mL Inj IVPUSH SCH (02:47)
[2016-07-05 05:44] VITALS: BP 99/65; PULSE 74; RESP 16; O2SAT 97
[2016-07-05 06:25] LABS: Magnesium 2.2 mg/dL (1.6-2.6)
[2016-07-05 07:48] VITALS: PULSE 72; RESP 20; O2SAT 95
[2016-07-05] MEDS: Albuterol-Ipratropium 3 mL Inhalation Solution NEB SCH (07:48)
--- NOTE | 2016-07-05 08:02 | NUR ---
Social Work Note: Continued Discharge Planning Data& Assessment: RUI spoke with pt family, MD and Pastoraaleena Ashley regarding pt returning to [facility] on on a comfort care pathway. Pastora Benoit does not have pain medication required to keep pt comfortable on hand and needs the prescription for her IV pain medications. MD notified. Pt family updated and deny any other needs. Anticipated discharge this afternoon after Pastora Benoit is able to obtain the appropriate pain mediations. Pt currently meets criteria for BLS transportation. Pt family notified and agreeable that if for some reason, Medicare does not agree that she meets criteria, the pt would be responsible for the bill. All updated and agreeable to plan. RUI to continue to follow. Plan:Anticipated discharge to [facility] via BLS this afternoon after Pastora Benoit is able to obtain the appropriate pain mediations. All updated and agreeable to plan. SW to continue to follow. DEJA Hannah
[2016-07-05 08:21] LABS: Mean Corpuscular Volume 100.6 fL (81-100)
[2016-07-05] MEDS ORDERED: Ondansetron 2 mg/mL 2 mL Inj IVPUSH PRN (08:25)
[2016-07-05] MEDS ORDERED: Artificial Tears 15 mL Ophthalmic Solution AFFECT_EYE PRN (08:25)
[2016-07-05] MEDS ORDERED: Hydrocortisone 50 mg/mL 2 mL Inj IVPUSH SCH ×2 (08:26→10:00)
[2016-07-05] MEDS: Pantoprazole 4 mg/mL 10 mL Inj IVPUSH SCH (09:15)
[2016-07-05] MEDS: Heparin 5,000 Unit/mL Inj SUBQ SCH (09:16)
[2016-07-05] MEDS ORDERED: Labetalol 5 mg/mL 4 mL Inj IV PRN (09:40)
[2016-07-05] MEDS ORDERED: Albuterol-Ipratropium 3 mL Inhalation Solution NEB PRN (10:15)
--- NOTE | 2016-07-05 10:26 | PCM.PALLBR ---
Palliative Care Recommendation Summary of palliative recommendations: Palliative Plan: 89yoF with influenza, COPD, diastolic CHF, atrial fibrillation with RVR, CKD stage IV. The patient was changed yesterday to comfort care and comfort care orders have been placed. The family had stated that they would like this round of antibiotics finished as well as her heart medication for rate control continued in an attempt to return Sofía back to [facility] to see her Vincenzo. However after discussion with the primary medical team yesterday the patient has been changed to full comfort care measures. Initially this morning the patient appears to be more alert and responding to commands today. On examination she remained in a-fib with a normal minute rate. Respiratory status appeared improved as the patient appears comfortably breathing through her nose using less accessory muscles than previous exam. Today mid-morning the patient was transferred from her CCU bed to a 1st floor bed and at that time the patient decompensated with bed transfer and appeared tachypneic and pale according to nursing reports. It was decided that the patient likely could not survive a transfer out of the hospital given her current state of health. The family was called at approximately 09:30 on 07/05 and recommendations were made that the patient will need to remain in the hospital until she expires likely within the next few days. The patient was on medications to help achieve the goal of returning to [facility] but with her recent decompensation, her steroid Hydrocortisone will be discontinued as well as her heart rate controlling medication will be discontinued in an effort to remain comfort care only. The son Prince and his Asha had a discussion with the Palliative team and concurred with our recommendations. Palliate has added morphine 1mg IV scheduled every 4 hours for pain and dyspnea . Other PRN medication advised to continue include: glycopyrrolate to control secretions, Duonebs for dyspnea, lorazepam for anxiety, Zofran for nausea. Protonix may be scheduled daily given her chronic steroid use. Lastly this afternoon the family was able to get Sofía's Vincenzo into the hospital to visit his . Vincenzo asked about any medical options that may remain which could return her health. It was explained that Sofía's health has deteriorated to a point that her is imminent. Vincenzo understood and asked if there was anything he could do and the Palliative team advised him that his only job would be to comfort Sofía and if there was anything that he had left unsaid that he wanted to tell her that now would be the time. Vincenzo stated that Sofía had made him the man he is, and that he loved her. The Palliative team asked if there were any more questions and Vincenzo stated no. -Symptom management (Pain/other) : currently managed by the primary red medicine team morphine 1mg IV scheduled every 4 hours for pain and dyspnea. glycopyrrolate PRN to control secretions, Duonebs PRN for dyspnea, lorazepam PRN for anxiety, Zofran PRN for nausea. Protonix scheduled daily given her chronic steroid use. -DPOA/Advanced Directives/POLST - DPOA - Son Demetrius Calderón (Rick) - new POLST completed 07/04/2016, previous POLST signed in 2013 - Comfort Care orders only -Family/emotional support - Family Care Team Meeting with son/DPSERGE Morrison and his Asha on 2016 at 11:00 - Palliative Team present Sada Schneider MD and Alexx Mims DO The discussion was started by Dr. Alexx Mims asking Prince and Asha to give any background history on Sofía [facility]. Prince states that he understands his mother has poor function in multiple organ systems including her heart, lungs, kidneys, and brain. He states that his understanding is that she is near the end of life with likely less than 3 months to live, which was explained by multiple doctors including Dr. Ortega of the CCU yesterday. Prince stated that she has had a progressive decline with her dementia over the last two years. Last year when Prince last saw his mother she was entirely bed bound and unable to care for herself, relying almost entirely on staff, except to feed herself. He states that she was quiet and would typically only give short one word answers, she also became quite confused in the evening. Next the palliative team asked Prince the DPOA and Asha to completed a new POLST to help initiate a new goals of care discussion. In discussing the POLST Prince agreed that Sofía would want to be DNR. Prince and Asha chose to make Sofía comfort care measures but they wanted her to finish her current course of antibiotics, with no future antibiotic usage and no tube feedings. The POLST was then signed and dated by Prince and Dr. Mims. Prince then stated that Sofía 's goal would be to return to [facility], likely with Hospice following for comfort care measures, and see and be with Vincenzo before she expires. -Spiritual support - Not addressed at this time On 07/04 Family Goals were: 1. Return to [facility] to be with her Vincenzo. 2. Remain comfortable with likely Hospice consulted from [facility] pending social workers arrangement On 07/05 Family Goals now changed: After medical team advised that patient has acutely declined and is unlikely to survive a transfer from hospital to care facility, family agreed to comfort care in hospital until . Dr. Schneider has given a prognosis of hours to days (less than 24 hours likely). Problems: End of Life Preferences Prince knows that Sofía would like to be buried in [place], but no arrangements have been made. Goals of Care 1. Family goals were to return the Patient to [facility] to be with her Vincenzo, however given the recent decompensation of transfer of beds it is unlikely that the patient would survive the transport to [facility] and palliative medicine recommended that the patient remain in the hospital until her likely in the next several days. 2. Family goals for patient to remain comfortable, the original plan was for hospice to follow the patient at [facility] now it is unlikely she will survive this hospitalization. Disposition Patient will likely not survive the current hospitalization and will within the next several days. Resuscitation Status Resuscitation Status: DNR/DNI:Do Not Resuscitate/Intubate (recently made DNR/ DNI by CCU in accordance with DPOA ) POLST Updates/Changes Previous POLST?: Yes (signed in 2013) POLST Last Review Date: Jul 04, 2016 Antibiotics: No Antibiotics Artificially Admin Nutrition: No Artifical Nutrition by Tube POLST Discussed with: Health Care Agent (DPOA) POLST Review Outcome: New Form Completed Total time 100 minutes; >50% face to face with patient and/or family, providing counselling regarding plans and recommendations, and in care coordination with his/her medical teams. 65 minutes of above time in counseling to family about end of life signs/ symptoms and supportive listening to aid preanticipatory grieving of family members. Attending Statement I was physically present and immediately available to assist and advise resident physician as he examined patient, counseled family members and coordinated services with Attending team, nursing and case management. I agree with above note describing outcome of our symptom management and counseling. Palliative Brief Note Date of Service Jul 05, 2016 . 89yoF with influenza, COPD, diastolic CHF, atrial fibrillation with RVR, CKD stage IV. The patient was changed yesterday to comfort care and comfort care orders have been placed. The family had stated that they would like this round of antibiotics finished as well as her heart medication for rate control continued in an attempt to return Sofía back to [facility] to see her Vincenzo. However after discussion with the primary medical team yesterday the patient has been changed to full comfort care measures. Initially this morning the patient appears to be more alert and responding to commands today. On examination she remained in a-fib with a normal minute rate. Respiratory status appeared improved as the patient appears comfortably breathing through her nose using less accessory muscles than previous exam. Today mid-morning the patient was transferred from her CCU bed to a 1st floor bed and at that time the patient decompensated with bed transfer and appeared tachypneic and pale according to nursing reports. It was decided that the patient likely could not survive a transfer out of the hospital given her current state of health. The family was called at approximately 09:30 on 07/05 and recommendations were made that the patient will need to remain in the hospital until she expires likely within the next few days. The patient was on medications to help achieve the goal of returning to [facility] but with her recent decompensation, her steroid Hydrocortisone will be discontinued as well as her heart rate controlling medication will be discontinued in an effort to remain comfort care only. The son Prince and his Asha had a discussion with the Palliative team and concurred with our recommendations. Palliate has added morphine 1mg IV scheduled every 4 hours for pain and dyspnea. Other PRN medication advised to continue include: glycopyrrolate to control secretions, Duonebs for dyspnea, lorazepam for anxiety, Zofran for nausea. Protonix may be scheduled daily given her chronic steroid use. Lastly this afternoon the family was able to get Sofía's Vincenzo into the hospital to visit his . Vincenzo asked about any medical options that may remain which could return her health. It was explained that Hayleys health has deteriorated to a point that her is imminent. Vincenzo understood and asked if there was anything he could do and the Palliative team advised him that his only job would be to comfort Sofía and if there was anything that he had left unsaid that he wanted to tell her that now would be the time. Vincenzo stated that Sofía had made him the man he is, and that he loved her. The Palliative team asked if there were any more questions and Vincenzo stated no. ALEXX MIMS DO Jul 05, 2016 10:14 Sada Schneider MD Jul 05, 2016 16:59
--- NOTE | 2016-07-05 15:06 | NUR ---
pt. is on comfort care Addendum: 07/05/16 at 1506 by SILVANO MILLER CNA Amended: Links added.
--- NOTE | 2016-07-05 15:09 | PCM.PNMED ---
Subjective Date of Service Jul 05, 2016 Subjective The patient was seen and examined. The patient did not respond to questions for her she would open her eyes when her name was called. Palliative care has been consulted and the goal is to be able to get the patient home as comfort care measures have been put in place. Exam Vital Signs Vital Sign - Last Date Time Temp Pulse Resp B/P Pulse Ox O2 Delivery O2 Flow Rate FiO2 07/05/16 09:26 Supplement Oxygen 07/05/16 07:48 72 20 95 4.00 07/05/16 05:44 35.8 99/65 07/04/16 12:54 28 Intake and Output 07/04/16 07/04/16 07/05/16 Cumulative From/Thru 15:00 23:00 07:00 06/27/16 16:14 - 07/05/16 06:21 Intake Total 1334 ml 0 ml 79059 ml Output Total 1350 ml 150 ml 29915 ml Balance -16 ml -150 ml 57369 ml Intake Oral 0 ml 0 ml 0 ml IV Total 1334 ml 95098 ml Output Urine Total 1350 ml 150 ml 68134 ml # Bowel Movements 0 4 Exam Physical Exam: GEN: Patient was awake, alert, responding appropriately to questions HEENT: PERRLA, EOMI, Neck soft supple, trachea midline, nomocephalic/atraumatic CV: +S1/S2, RRR, systolic murmur auscultated Respiratory: CTAB, no wheezes, rales, rhonchi GI: +bowel sounds x4, soft, compressible, non TTP EXT: no c/c/e Skin: Multiple skin bruises noted on the arms and anterior thorax Neuro: CN II-XII grossly intact Psych: mood and affect were appropriate IVs and Medications Medications Reviewed: Medications were reviewed in detail Medications Current Medications Lorazepam 0.5-2 mg Q2H PRN anxiety Q2 PRN IVPUSH; Start 07/04/16 at 19:05; Stop 07/05/16 at 08:27; Status DC Calcium Carbonate 500 mg TIDWM PO; Start 07/05/16 at 08:00; Stop 07/05/16 at 09: 39; Status DC Hydrocortisone Sodium Succinate 25 mg Q6H IVPUSH Last administered on 07/05/16t 09:15; Admin Dose 25 MG; Start 07/05/16 at 08:26; Stop 07/05/16 at 09:39; Status DC Lorazepam 0.5-2 mg Q2H PRN anxiety Q2H PRN IVPUSH; Start 07/05/16 at 08:26 Morphine Sulfate 2 mg Q1H PRN IVPUSH Last administered on 07/05/16 11:09; Admin Dose 2 MG; Start 07/05/16 at 08:25; Stop 07/05/16 at 11:21; Status DC Pantoprazole 40 mg DAILY IVPUSH Last administered on 07/05/16 09:15; Admin Dose 40 MG; Start 07/05/16 at 08:30 Ondansetron HCl Start with 4 mg, if ... Q4H PRN IVPUSH; Start 07/05/16 at 08:25 Glycopyrrolate Start with 0.2 mg, if ... Q1H PRN IVPUSH Last administered on 14:12; Admin Dose 0.2 MG; Start 07/05/16 at 08:25 Artificial Tears 1 drop Q1H PRN AFFECT_EYE; Start 07/05/16 at 08:25 Hydrocortisone Sodium Succinate 50 mg DAILY IVPUSH Last administered on 11:10; Admin Dose 50 MG; Start 07/05/16 at 10:00; Stop 07/05/16 at 13:36; Status DC Morphine Sulfate 1 mg Q4H IVPUSH Last administered on 07/05/16 12:55; Admin Dose 1 MG; Start 07/05/16 at 12:30 Labetalol HCl Start with 10mg and must... Q6H PRN IV; Start 07/05/16 at 09:40; Stop 07/05/16 at 13:36; Status DC Albuterol/ Ipratropium 3 ml QIDRT PRN NEB; Start 07/05/16 at 10:15 Morphine Sulfate 1 mg Q1H PRN IVPUSH; Start 07/05/16 at 11:21; Stop 07/05/16 at 12:30; Status DC Lab and Diagnostics Result Diagram: 07/05/16 0800 07/05/16 5791 Microbiology Influenza A positive X-Rays, CTs and MRIs CT BRAIN WITHOUT CONTRAST IMPRESSION: 1. No acute intracranial process. 2. Moderate to severe atrophy and chronic microvascular ischemic changes. Dictated by: Veronica Flynn M.D. on 06/29/2016 at 14:09 Approved by: Veronica Flynn M.D. on 06/29/2016 at 14:09 X-RAY CHEST ONE VIEW, PORTABLE IMPRESSION: Bibasilar atelectasis versus aspiration or pneumonia not significantly changed. Correlate clinically. Dictated by: Nader Mann RRA Interpreted: Cynthia Han MD on 06/29/2016 at 10:02 Transcribed by: HECTOR on 06/29/2016 at 10:02 Approved by: Cynthia Han MD, PhD on 06/29/2016 at 16:57 X-RAY CHEST ONE VIEW, PORTABLE IMPRESSION: Bibasilar opacities compatible with atelectasis versus pneumonia. Please correlate with clinical and laboratory data. 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 Admitted for influenza A, acute hypercapnic and hypoxemic respiratory failure, possible pneumonia, and UTI. At this time the patient has been treated for her hypercapnia and hypoxemia however it is felt that the patient should return back to [facility] with comfort measures as the family would like patient to return home to spend her last visit with her . However the patient seems to be decompensating quickly and most likely would not survive the transport back home the family has been called in and have been made aware of the situation. The patient is on comfort care measures and will most likely pass away in the next day or 2. Palliative care has been present for these conversations and have made recommendations for the patient. --Palliate has added morphine 1mg IV scheduled every 4 hours for pain and dyspnea. Other PRN medication advised to continue include: glycopyrrolate to control secretions, Duonebs for dyspnea, lorazepam for anxiety, Zofran for nausea. Protonix may be scheduled daily. GI Prophylaxis: Not indicated VTE Prophylaxis: Sub-Q Heparin (Unfractionated) VTE Mechanical Devices: Intermittant Pneumatic CD Resuscitation Status: DNR/DNI:Do Not Resuscitate/Intubate (recently made DNR/ DNI by CCU in accordance with DPOA ) Aminta Arndt DO Jul 05, 2016 15:08
--- NOTE | 2016-07-05 16:26 | NUR ---
Pastora Ashley updated on patient clinical course and poor prognosis at this time. Palliative care consulted. Leia SHORT
--- NOTE | 2016-07-05 18:45 | NUR ---
Comfort Measures Patient on comfort care. 0.4 mg Robinul given every one hour to help reduce secretions and 1 mg Morphine given every 4 hours for comfort. Will continue to monitor patient hourly.
--- NOTE | 2016-07-06 08:39 | NUR ---
Comfort care Patient is on comfort care. Patient receiving Morphine 1mg q4 for pain and Rubenol .4mg q1hr to reduce secretions. Patient became more alert in the morning and opened her eyes more.
--- NOTE | 2016-07-06 09:25 | PCM.PALLBR ---
Palliative Care Recommendation Summary of palliative recommendations: Palliative Plan: 89yoF with influenza, COPD, diastolic CHF, atrial fibrillation with RVR, CKD stage IV who was transitioned on 07/05 to comfort care. -Symptom management (Pain/other) : currently managed by the primary red medicine team morphine 1mg IV scheduled every 4 hours for pain and dyspnea--> to be continued at [facility] on transfer. glycopyrrolate PRN to control secretions-->discontinued and scopolamine transdermal patch substituted for use at [facility] for secretion control. lorazepam PRN for anxiety-->converted today from IV to liquid drops for use at [facility] -DPOA/Advanced Directives/POLST - DPOA - Son Demetrius Calderón (Rick) - new POLST completed 07/04/2016, previous POLST signed in 2013 - Comfort Care orders only - Family Care Team Meeting (FCTM): On 07/04: with son/DPSERGE Morrison and his Asha and Palliative Team Sada Schneider MD and Alexx Sepulveda DO 1.The discussion was started by Dr. Alexx Sepulveda asking Prince and Asha to give any background history on [facility]. 2. Prince states that he understands his mother has poor function in multiple organ systems including her heart, lungs, kidneys, and brain. 3. Prince's understanding is that she is near the end of life with likely less than 3 months to live, which was explained by multiple doctors including Dr. Ortega of the CCU yesterday. 4. Prince the DPOA completed a new POLST which states: DNR/DNI/comfort measures. Prince wanted Sofía to finish her current course of antibiotics, with no future antibiotic usage and no tube feedings. The POLST was signed and dated by Prince and Dr. Sepulveda. On 07/05 Family Goals changed: After medical team advised that patient has acutely declined and is unlikely to survive a transfer from hospital to care facility, family agreed to comfort care in hospital until . Dr. Schneider has given a prognosis of hours to days (less than 24 hours likely). On 07/06 Family Goals changed again: patient seems safe to transfer to [facility] and family hoped that she could be in same room with her until she passes. Dr. Moffet spent 35min face to face with family in patient's room, answering questions on vergara of plan for transfer, medications that will be given at [facility] to keep her comfortable, prognostic update: (still anticipate hours to days before ). On 07/06 Family Goals: patient seems safe to transfer to [facility] and family hoped that she could be in same room with her until she passes. Problems: End of Life Preferences Prince knows that Sofía would like to be buried in [place], but no arrangements have been made. Goals of Care 1. Family goals were to return the Patient to [facility] to be with her Vincenzo, however given the recent decompensation of transfer of beds it is unlikely that the patient would survive the transport to [facility] and palliative medicine recommended that the patient remain in the hospital until her likely in the next several days. 2. Family goals for patient to remain comfortable, the original plan was for hospice to follow the patient at [facility] now it is unlikely she will survive this hospitalization. Disposition Patient will likely not survive the current hospitalization and will within the next several days. Resuscitation Status Resuscitation Status: DNR/DNI:Do Not Resuscitate/Intubate (recently made DNR/ DNI by CCU in accordance with DPOA ) POLST Updates/Changes Previous POLST?: Yes (signed in 2013) POLST Last Review Date: Jul 04, 2016 Antibiotics: No Antibiotics Artificially Admin Nutrition: No Artifical Nutrition by Tube POLST Discussed with: Health Care Agent (DPOA) POLST Review Outcome: New Form Completed . Advanced Care Planning Address: Comfort care Total time 65 minutes; >50% face to face with patient and/or family, providing counselling regarding plans and recommendations, and in care coordination with his/her medical teams. Included in above time: 35 minutes counseling for advanced care planning with the patients family Palliative Brief Note Date of Service Jul 06, 2016 . Patient Identification: 89yoF with influenza, COPD, diastolic CHF, atrial fibrillation with RVR, CKD stage IV. The patient was changed yesterday to comfort care and comfort care orders have been placed. The family had stated that they would like this round of antibiotics finished as well as her heart medication for rate control continued in an attempt to return Sofía back to [facility] to see her Vincenzo. However after discussion with the primary medical team yesterday the patient has been changed to full comfort care measures. Hospital Course: On 07/05 mid-morning, patient had an acute decompensation with bed transfer, and it was decided that she would likely not survive a transfer to a facility for comfort care. The plan is for comfort care until in hospital. However, overnight pt became more awake and tolerated several bed turns (to prevent skin breakdown) without any issues. The plan now is to try to transfer her to [facility] so she can be with her . Sada Schneider MD Jul 06, 2016 09:25
[2016-07-06] MEDS: Pantoprazole 4 mg/mL 10 mL Inj IVPUSH SCH (10:20)
[2016-07-06] MEDS ORDERED: LORazepam Oral Conc 2 mg/mL 30 mL Solution PO PRN (10:25)
--- NOTE | 2016-07-06 11:39 | NUR ---
Social Work Continued Discharge Planning: RUI spoke to [facility] SN[facility] rep Josephine to discuss transfer back to facility today with IV Morphine. Josephine states that patient accepted back with IV medications. RUI consulted with Palliative care MD Carmen who was made aware of facilities abilities to provide IV med. UR specialist to coordinate transfer to rehab today, pending clinical course. SW to follow PLAN: Transfer back to [facility] today, pending clinical course. Bed available today and facility able to coordinate for IV morphine. SW to follow. Leia SHORT Addendum: 07/06/16 at 1505 by TE FREIRE RUI spoke to patient family ay bedside. Family in agreement to transfer today. UR specialist arranged for transport for pharmacy picking tech today. Facility aware. No other needs identified. Leia SHORT
[2016-07-06 12:54] VITALS: BP 82/49; PULSE 80; RESP 20; O2SAT 90
--- NOTE | 2016-07-06 14:38 | PCM.DIMED ---
Discharge Instructions Date of Service Jul 06, 2016 Dates of Hospitalization Jun 27, 2016 at 16:24 Discharge Diagnosis Discharge Diagnosis Influenza A with exacerbation of COPD and a Neuromuscular disorder Diet Other (As tolerated for Comfort) Activity Other (As tolerated) Call your provider Other (Patient is comfort care only) Patient Instructions Follow-up with PCP in: 1 week Additional Information Patient is to be comfort care only and would consider Hospice consult. Shamar Dempsey MD Jul 06, 2016 14:38
[2016-07-06] MEDS ORDERED: MORP2SYR2 IVPUSH (14:46)
[2016-07-06] MEDS ORDERED: Artificial Tears AFFECT_EYE (14:46)
[2016-07-06] MEDS ORDERED: SCOP1PAT TD (15:12)
--- NOTE | 2016-07-06 15:13 | NUR ---
Arranged BLS via [place] and patient is leaving now as there was crew onsite for her. Faxed orders to [facility] Updated [employer] and RN.
--- NOTE | 2016-07-06 15:34 | NUR ---
Discharge Patient discharged to home at [facility]. Report called to [facility]. Left forearm IV in place and intact. Sacral mepilex in place. Patient's son took patient's belongings. EMS transported patient out via stretcher.
--- NOTE | 2016-07-06 21:05 | PCM.DC.MED ---
Discharge Summary Date of Service Jul 06, 2016 Dates of Hospitalization Date of Hospital Admission Jun 27, 2016 at 16:24 Date of Discharge: Jul 06, 2016 Providers: Admitting Physician: Patrick Inman MD Primary Care Physician: Latisha Xavier Attending Physician: Patrick Inman MD Diagnosis at Time of Discharge Diagnosis at Time of Discharge Influenza A with exacerbation of COPD and a Neuromuscular disorder Consultations Dr. Fernandez of Infectious Disease and Dr. Foster of Palliative Care Procedures XRay, CTs & MRIs CT BRAIN WITHOUT CONTRAST IMPRESSION: 1. No acute intracranial process. 2. Moderate to severe atrophy and chronic microvascular ischemic changes. Dictated by: Veronica Flynn M.D. on 06/29/2016 at 14:09 Approved by: Veronica Fylnn M.D. on 06/29/2016 at 14:09 X-RAY CHEST ONE VIEW, PORTABLE IMPRESSION: Bibasilar atelectasis versus aspiration or pneumonia not significantly changed. Correlate clinically. Dictated by: Nader Mann RRA Interpreted: Cynthia Han MD on 06/29/2016 at 10:02 Transcribed by: HECTOR on 06/29/2016 at 10:02 Approved by: Cynthia Han MD, PhD on 06/29/2016 at 16:57 X-RAY CHEST ONE VIEW, PORTABLE IMPRESSION: Bibasilar opacities compatible with atelectasis versus pneumonia. Please correlate with clinical and laboratory data. Dictated by: Cynthia Han MD, PhD on 06/27/2016 at 16:44 Approved by: Cynthia Han MD, PhD on 06/27/2016 at 16:44 Other Diagnostics DateTimeAnalyzed 00:18:55 -_ pH ____7.521 - 7.350 7.450 pCO2 ___34.0__ -mmHg 35.0 45.0 pO2 ___64.4__ -mmHg 70.0 100 HCO3- ___27.8__ -mmol/L 22.0 26.0 Brief History Patient is an 89-year-old female, with dysphagia and COPD by history, diagnosed with influenza one week prior to admission. This was associated with 79% on RA , tolerating Tamiflu, progressive altered mental status x 2 days, poorly responsive to staff, with ongoing O2 needed. In the ER BP 70/40, respiratory rate 25, 5L O2 . UA positive for leukocyte esterase but negative for bacteria/negative yeast. Vancomycin and Zosyn started. BiPAP started. The patient was noted to have altered mental status which was progressive progressive. She also presented with hypotension, and respiratory distress from influenza/bilateral basilar pneumonia, failing outpatient tamiflu and treating as HCAP. Therefore, patient was admitted to the hospital service. 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 Admitted for influenza A, acute hypercapnic and hypoxemic respiratory failure, possible pneumonia, and UTI. The patient has been treated for her hypercapnia and hypoxemia however it is felt that the patient should return back to [facility] with comfort measures as the family would like patient to return home to spend her last visit with her . --Palliate has added morphine 1mg IV scheduled every 4 hours for pain and dyspnea. Other PRN medication advised to continue include: glycopyrrolate to control secretions, Duonebs for dyspnea, lorazepam for anxiety, Zofran for nausea. Protonix may be scheduled daily. Patient has been accepted at [facility] and will be transferred today. Patient will be on comfort measures with no blood draws and no medications other than for comfort. Hospice will likely be consulted after arrival to [facility]. Exam Vital Signs (Last) Date Time Temp Pulse Resp B/P Pulse Ox O2 Delivery O2 Flow Rate FiO2 07/06/16 12:54 35.8 80 20 82/49 90 Nasal Cannula 4.00 07/04/16 12:54 28 Exam General: Patient is very somnolent but is arousable and does follow some commands. HEENT: Head is atraumatic normocephalic. Eyes: Pupils are equally round and reactive to light and accommodation. Extraocular muscles are intact. Sclera are white anicteric. Subconjunctival mucosa is pink. Ears and nose are unremarkable. Oropharynx: There is no mucosal lesions, there is no thrush, there is no pharyngitis. Neck: Is supple, there are nodes, or masses or tenderness. Chest: Is clear to auscultation and percussion. There are some bibasilar rales , a few rhonchi. However, there are no wheezes or rubs. Heart: Rate, rhythm is regular. There is no murmur, rub or gallop. Abdomen: There are very few bowel sounds present. Abdomen is soft, nontender, no organomegaly or masses were appreciated. Extremities: Are symmetrical and well perfused. There is 2+ pitting edema of all 4 extremities. There is no cellulitis, no rash. Neurologic: There are no focal neurological deficits. Patient is very somnolent and full neurologic exam could not be performed. Cranial nerves II through XII appear to be intact. There are no apparent sensory or motor deficits. The patient is profoundly weak however. Psychiatric: Patients mood is calm and shows no sign of agitation. Genital: Deferred Rectal: Deferred Test 06/27/16 15:51 06/28/16 01:20 06/28/16 07:50 06/29/16 03:02 Urine Legionella pneumophilia Ag Negative (Negative) Hemoglobin A1c 5.6% (4.8-5.6) Direct Bilirubin 0.2mg/dL (0.0-0.3) Troponin T 0.022ug/L (0.0-0.011) Thyroid Stimulating Hormone (TSH) 0.355uIU/mL (0.450-4.500) Procalcitonin 0.06ng/mL (See Comment) Test 06/30/16 10:46 07/01/16 03:25 07/01/16 17:31 07/02/16 00:28 Vancomycin Level Trough 14.6mcg/mL Prealbumin 10mg/dL (20-40) Urine Color Straw (YELLOW) Urine Appearance Clear (CLEAR,HAZY) Urine pH 6.0 (5.0-8.0) Urine Specific [place] 1.020 (1.003-1.035) Urine Protein Negativemg/dL (NEG,TRACE) Urine Glucose (UA) Negativemg/dL (NEGATIVE) Urine Ketones Tracemg/dL (NEGATIVE) Urine Occult Blood Large (NEGATIVE) Urine Nitrite Negative (NEGATIVE) Urine Bilirubin Negative (NEGATIVE) Urine Urobilinogen Normalmg/dL (NORMAL) Urine Leukocyte Esterase Large (NEGATIVE) Urine RBC 3-10/hpf (0-2) Urine WBC 6-10/hpf (0-5) Urine Epithelial Cells None/hpf (NONE-MOD) Urine Crystals None seen (NONE SEEN) Urine Bacteria Few/hpf (NONE-FEW) Urine Hyaline Casts None/lpf (NONE) Urine Granular Casts None seen (NONE SEEN) Urine Waxy Casts None seen (NONE SEEN) Urine Red Blood Cell Casts None seen (NONE SEEN) Urine White Blood Cell Casts None seen (NONE SEEN) Urine Mucus Present (None Seen) Urine Trichomonas None seen (NONE SEEN) Urine Yeast None (NONE SEEN) Urinalysis Comment None Urine Culture Reflexed Indicated Lactic Acid Level 1.6mmol/L (0.4-2.0) Total Bilirubin 0.3mg/dL (0.0-1.2) Aspartate Amino Transf (AST/SGOT) 14U/L (0-50) Alanine Aminotransferase (ALT/SGPT) 8U/L (0-32) Alkaline Phosphatase 35U/L (25-165) Albumin 2.9g/dL (3.4-5.0) Test 07/04/16 03:40 07/04/16 05:00 07/05/16 04:15 07/05/16 08:00 Neutrophils (%) (Auto) 77.4% (40-74) Lymphocytes (%) (Auto) 6.6% (14-46) Monocytes (%) (Auto) 14.7% (4-12) Eosinophils (%) (Auto) 0.1% (0-5) Basophils (%) (Auto) 0.3% (0-3) Ionized Calcium (Calculated) 3.26mg/dL (3.5-5.2) Phosphorus Level 1.4mg/dL (2.5-4.9) Total Protein 4.9g/dL (6.4-8.4) Sodium Level 131mEq/L (134-144) Potassium Level 6.0mEq/L (3.5-5.2) Chloride Level 96mEq/L (97-108) Carbon Dioxide Level 22mmol/L (18-29) Blood Urea Nitrogen 13mg/dL (8-27) Creatinine 0.79mg/dL (0.57-1.00) Estimat Glomerular Filtration Rate 98mL/min (>59) Glucose Level 138mg/dL (60-99) Calcium Level 6.1mg/dL (8.5-10.1) Magnesium Level 2.2mg/dL (1.6-2.6) White Blood Count 12.3th/mm3 (3.8-10.1) Red Blood Count 3.12mil/mm3 (3.90-5.20) Hemoglobin 10.6g/dL (12.0-15.6) Hematocrit 31.4% (35.0-46.0) Mean Corpuscular Volume 100.6fL (81-100) Mean Corpuscular Hemoglobin 34.0pg (27.0-35.0) Mean Corpuscular Hemoglobin Concent 33.8% (32.0-37.0) Red Cell Distribution Width 13.5% (12.3-15.4) Platelet Count 244bil/L (150-400) Microbiology Results Influenza A positive Discharge Medications Discharge Medications Fluticasone Propionate (Flonase Allergy Relief) 50 Mcg/Actuation [place].susp 1 SPRAY NS QPM (Reported) Morphine Sulfate (Morphine Sulfate) 2 Mg/Ml Syr 1 MG IVPUSH Q4H Prescribed by: CLARA DEMPSEY MD Scopolamine (Transderm-Scop) 1 Each Patch.td72 1 EACH TD DAILY Prescribed by: CLARA DEMPSEY MD As needed ([Artificial Tears]) 15 DROP/ML SOLUTION 1 DROP AFFECT_EYE Q1H PRN PRN dry eyes Prescribed by: CLARA DEMPSEY MD Followup Plan Disposition: The patient is being discharged to [facility]. Discharge Diet: Other (As tolerated for Comfort) Discharge Activity: Other (As tolerated) Follow-up with PCP in: 1 week Time spent Time spent on discharging this patient was greater than 35 minutes, over half of which was involved in counseling and coordination of care. Shamar Dempsey MD Jul 06, 2016 21:05
--- NOTE | 2016-07-11 09:13 | NUR ---
Palliative care note D/A: Pt dc[facility]ed to [facility] on 07/06/16.POLST filled out with PC on 07/04/16 and signed by pt son Demetrius Calderón who is her DPOA. Pt is DNR/DNI with comfort measures only, wishes are to complete current course of antibiotics and then no further antibiotics as well as no nutrition by tube. POLST is faxed to [facility]. P: NO further need for Palliative care to follow. Ya CLARK, CCM
== END 2016-07-06 15:34 | DRG 189 ==
LOC: SED 14:40 → EDBD 14:40 → PCC 16:24 → CCU 17:36 → PCC 06-28 08:54 → CCU 06-30 08:57 → PCC 06-30 10:00 → OSC 07-04 23:02
PROVIDERS: ADMIT Urology; ATTEND Urology
PROC: 4A033R1 Measurement of Arterial Saturation, Peripheral, Percutaneous Approach (ICD-10-PCS; principal; 2016-06-27)
DX: J96.02 Acute respiratory failure with hypercapnia (principal); J10.00 Influenza due to other identified influenza virus with unspecified type of pneumonia; J18.9 Pneumonia, unspecified organism; J44.1 Chronic obstructive pulmonary disease with (acute) exacerbation; N39.0 Urinary tract infection, site not specified; N18.4 Chronic kidney disease, stage 4 (severe); I24.8 Other forms of acute ischemic heart disease; J96.01 Acute respiratory failure with hypoxia; E03.9 Hypothyroidism, unspecified; Z66 Do not resuscitate; G70.9 Myoneural disorder, unspecified; M62.3 Immobility syndrome (paraplegic); I12.9 Hypertensive chronic kidney disease with stage 1 through stage 4 chronic kidney disease, or unspecified chronic kidney disease; I25.10 Atherosclerotic heart disease of native coronary artery without angina pectoris; L89.159 Pressure ulcer of sacral region, unspecified stage; Z79.52 Long term (current) use of systemic steroids; B96.4 Proteus (mirabilis) (morganii) as the cause of diseases classified elsewhere; R00.0 Tachycardia, unspecified; Z51.5 Encounter for palliative care